=== PATIENT | male | born 1960 | race Caucasian/White ===

== ENCOUNTER → 2016-02-11 | Outpatient (CLI) | payer OTHER ==
[~2016-02-11] MED LIST: CRS/10 PO; CZR50 PO; HYDR-5688 PO; OMEG10007 PO; PRAV20TA PO; WARF3TAB PO
[2016-02-11 10:13] LABS: ALT/SGPT 39 U/L (12-78); AST/SGOT 20 U/L (15-37); BLOOD UREA NITROGEN 19 mg/dl (7-18); BUN/CREATININE RATIO 17.4 (10-20); CALCIUM 8.5 mg/dl (8.5-10.1); CARBON DIOXIDE 29 mmol/L (21-32); CHLORIDE 102 mmol/L (98-107); GLUCOSE 93 mg/dl (70-99); POTASSIUM 3.6 mmol/L (3.5-5.1); SODIUM 138 mmol/L (136-145)
[2016-02-11 10:17] LABS: ALB/GLOB RATIO 0.9 (0.9-2); ALKALINE PHOSPHATASE 80 U/L (45-117); CHOLESTEROL 276 mg/dl (0-200); CHOLESTEROL/HDL RATIO 7.5; HDL CHOLESTEROL 37 mg/dl; PROSTATE SPECIFIC ANTIGEN 0.264 ng/ml (0.000-4.000); TRIGLYCERIDES 536 mg/dl (0-150)
== END | disposition home or self-care (01) ==
LOC: C.LAB 07:23
PROVIDERS: ATTEND Internal Medicine
DX: E78.5 Hyperlipidemia, unspecified (principal); I10 Essential (primary) hypertension; Z12.5 Encounter for screening for malignant neoplasm of prostate

== ENCOUNTER → 2016-03-22 | Outpatient (CLI) | payer OTHER | END | disposition home or self-care (01) | LOC: C.RDSM 11:52 | PROVIDERS: ATTEND Physical Medicine & Rehabilitation Sports Medicine | DX: M25.561 Pain in right knee (principal) ==

== ENCOUNTER → 2016-06-16 | Outpatient (CLI) | payer OTHER ==
[~2016-06-16] MED LIST changes: -HYDR-5688 PO
[2016-06-16 12:00] LABS: BASO % 0.3 %; BASO ABS # 0.01 K/uL (0-0.2); COMPLETE YES; EOS % 3.6 %; HEMATOCRIT 42.7 % (42-52); IG% 0.3 %; LYMPH % 20.3 %; LYMPH ABS # 0.79 K/uL (1.2-3.4); MEAN CELL VOLUME 95.3 fL (80-100); MEAN CORPUSCULAR HEMOGLOBIN 31.9 pg (25-34); MEAN CORPUSCULAR HGB CONC 33.5 g/dl (32-36); MEAN PLATELET VOLUME 9.6 fL (7.4-10.4); NEUT % 66.5 %; PLATELET COUNT 161 K/uL (130-400); RED BLOOD COUNT 4.48 M/uL (4.7-6.1); WHITE BLOOD COUNT 3.89 K/uL (4.8-10.8)
[2016-06-16 12:52] LABS: ALT/SGPT 45 U/L (12-78); CHOLESTEROL 172 mg/dl (0-200)
[2016-06-16 13:29] LABS: AST/SGOT 28 U/L (15-37); HDL CHOLESTEROL 41 mg/dl; LDL CHOLESTEROL CALCULATED 82 mg/dl; TRIGLYCERIDES 247 mg/dl (0-150); VERY LOW DENSITY LIPOPROT CALC 49 mg/dl
== END | disposition home or self-care (01) ==
LOC: C.LABBFT 08:09
PROVIDERS: ATTEND Internal Medicine
DX: E78.5 Hyperlipidemia, unspecified (principal); I10 Essential (primary) hypertension

== ENCOUNTER → 2017-03-21 | Day surgery (SDC) | payer OTHER ==
[2017-03-08 12:35] VITALS: BMI 34.0
[~2017-03-21] VITALS: Ht 177.8 cm; Wt 109.1 kg
[~2017-03-21] MED LIST changes: -CZR50 PO; +LOSA100T65 PO; -OMEG10007 PO; -PRAV20TA PO; +SODIUM CHLORIDE 0.9% 500ML 500 ML IV ONE
[2017-03-21 08:03] VITALS: Ht 177.8 cm; Wt 109.1 kg
--- NOTE | 2017-03-21 08:40 | Endo History and Physical ---
History & Physical Date of Service: Mar 21, 2017. Chief Complaint: hx polyps 3 years ago Referring Physician: Dr. Spear History of Present Illness 56 yo CM who presents for colonoscopy secondary to history of colon polyps. Past Medical History Pulmonary Emboli, High Cholesterol, Hypertension, Thrombophlebitis, Other Past Surgical History Hx Cardiac Surgery: No Hx Internal Defibrillator: No Hx Pacemaker: No Hx Abdominal Surgery: No Hx of Implantable Prosthesis: No Hx Post-Op Nausea and Vomiting: No Hx Cancer Surgery: No Hx Thoracic Surgery: No Hx Orthopedic: Yes (DUPYTRENS CONTRACTURE REPAIR) Hx Urinary Tract Surgery: No Family History Polyp Social History Smoking Status: Never Smoker Hx Substance Use: No Hx Alcohol Use: Yes (OCCASIONAL) Allergies Coded Allergies: Atorvastatin (Verified Adverse Reaction, Severe, Severe myopathy after 4 days, 03/21/17) Uncoded Allergies: FRESH FRUIT (Allergy, Intermediate, ITCHING LIPS, 08/18/13) Current Medications Reported Home Medications Medications Dose Route/Sig Max Daily Dose Days Date Category Cozaar (Losartan Potassium) 100 Mg Tab 100 Mg PO HS 03/08/17 Reported Crestor (Rosuvastatin Calcium) 10 Mg Tab 10 Mg PO HS 07/14/16 Reported Coumadin (Warfarin Sodium) 3 Mg Tab 9 Mg PO HS 11/27/15 Reported Vital Signs Weight (Kilograms): 109.09 Height (Feet): 5 Height (Inches): 10 Date Time Temp Pulse Resp B/P (MAP) Pulse Ox O2 Delivery O2 Flow Rate FiO2 03/21/17 08:12 37 65 20 141/98 (112) 94 Room Air Physical Exam General Appearance: WD/WN, no apparent distress Respiratory/Chest: Auscultation: breath sounds normal Cardiovascular: Heart Auscultation: RRR Abdomen: Bowel Sounds: normal Inspection & Palpation: soft, non-distended, no tenderness, guarding & rebound Assessment and Plan Assessment: 56 yo CM who presents for colonoscopy secondary to history of colon polyps. Plan: Proceed with colonoscopy.
--- NOTE | 2017-03-21 09:07 | GI REPORT ---
Procedure Date: 03/21/2017 8:09 AM Procedure: Colonoscopy Indications: High risk colon cancer surveillance: Personal history of colonic polyps Medicines: Monitored Anesthesia Care Complications: No immediate complications. Estimated Blood Loss: Estimated blood loss: none. Procedure: Pre-Anesthesia Assessment: - Prior to the procedure, a History and Physical was performed, and patient medications and allergies were reviewed. The patient's tolerance of previous anesthesia was also reviewed. The risks and benefits of the procedure and the sedation options and risks were discussed with the patient. All questions were answered, and informed consent was obtained. Prior Anticoagulants: The patient has taken Coumadin (warfarin), last dose was 6 days prior to procedure. ASA Grade Assessment: II - A patient with mild systemic disease. After reviewing the risks and benefits, the patient was deemed in satisfactory condition to undergo the procedure. After I obtained informed consent, the scope was passed under direct vision. Throughout the procedure, the patient's blood pressure, pulse, and oxygen saturations were monitored continuously. The scope was introduced through the anus and advanced to the terminal ileum. The colonoscopy was performed without difficulty. The patient tolerated the procedure well. The quality of the bowel preparation was good. The terminal ileum, ileocecal valve, appendiceal orifice, and rectum were photographed. Findings: The perianal and digital rectal examinations were normal. Two sessile polyps were found in the rectum and ascending colon. The polyps were 4 to 6 mm in size. These polyps were removed with a hot snare. Resection and retrieval were complete. Multiple small-mouthed diverticula were found in the sigmoid colon. Non-bleeding internal hemorrhoids were found during retroflexion. The hemorrhoids were small. Impression: - Two 4 to 6 mm polyps in the rectum and in the ascending colon, removed with a hot snare. Resected and retrieved. - Diverticulosis in the sigmoid colon. - Non-bleeding internal hemorrhoids. Recommendation: - Resume previous diet. - Continue present medications. - Resume Coumadin (warfarin) at prior dose today. - Repeat colonoscopy for surveillance based on pathology results. - Return to primary care physician as previously scheduled. Francisco Oneil DO 03/21/2017 9:07:29 AM This report has been signed electronically. Note Initiated On: 03/21/2017 8:09 AM I attest to the content of the Intraoperative Record and orders documented therein, exceptions below
--- NOTE | 2017-03-21 09:10 | Discharge Instructions ---
Endoscopy Patient Instructions Date / Procedure(s) Performed Mar 21, 2017. Colonoscopy Allergy Information Coded Allergies: Atorvastatin (Verified Adverse Reaction, Severe, Severe myopathy after 4 days, 03/21/17) Uncoded Allergies: FRESH FRUIT (Allergy, Intermediate, ITCHING LIPS, 08/18/13) Discharge Date / Findings Mar 21, 2017. Colon polyp Rectal polyp Diverticulosis Internal hemorrhoids Medication Instructions Stopped Medication(s): OFF COUMADIN FOR 5 DAys. INR 1.2 yesterday OK to resume all medications today as prescribed, including Coumadin therapy. Reported Home Medications Medications Dose Route/Sig Max Daily Dose Days Date Category Cozaar (Losartan Potassium) 100 Mg Tab 100 Mg PO HS 03/08/17 Reported Crestor (Rosuvastatin Calcium) 10 Mg Tab 10 Mg PO HS 07/14/16 Reported Coumadin (Warfarin Sodium) 3 Mg Tab 9 Mg PO HS 11/27/15 Reported Provider Instructions Activity Restrictions - No exercising or heavy lifting for 24 hours. - Do not drink alcohol the day of the procedure. - Do not drive a car or operate machinery until the day after the procedure. - Do not make any important decisions or sign important papers in 24 hours after the procedure. Following Day: - Return to full activity which may include returning to work/school. Diet Start your diet with liquids and light foods (jello, soup, juice, toast). Then eat your usual diet if not nauseated. Treatment For Common After Affects For mild abdominal pain, bloating, or excessive gas: - Rest - Eat lightly - Lie on right side Follow-Up Information Follow-up with Dr. Spear as scheduled Anesthesia Information What You Should Know You have had a procedure that required some medicine to reduce anxiety and discomfort. This treatment is called moderate sedation. After receiving the treatment, you may be sleepy, but you will be able to breathe on your own. The effects of the treatment may last for several hours. Follow these instructions along with Activity/Diet recommendations noted above: * Do NOT do anything where dizziness or clumsiness would be dangerous. * Rest quietly at home today, then you can be up and about tomorrow. * Have a responsible person stay with you the rest of today. * You may have had an I.V. today. If so, you may take the dressing off later today. Recommendations Call your doctor if: * Trouble breathing * Continuous vomiting for more than 24 hours * Temperature above 101 degrees * Severe abdominal pain or bloating * Pain not relieved by pain medicine ordered * There is increased drainage or redness from any incision * A large amount of rectal bleeding greater than 2-3 tablespoons. (If you had a polyp/s removed or have hemorrhoids, a small amount of blood - from the rectum is to be expected.) * You have any unanswered questions or concerns. IN THE EVENT OF A SERIOUS EMERGENCY, GO TO THE NEAREST EMERGENCY ROOM Your discharge instructions were prepared by provider Francisco Oneil. Patient Instructions Signature Page Gui Burnett Patient (or Guardian) Signature/Date: I have read and understand the instructions given to me by my caregivers. Caregiver/RN/Doctor Signature/Date: The above-named patient and/or guardian has received patient instructions on this date. + Original Patient Signature Page (only) stays with chart. Please make copy for patient.
[2017-03-21 09:36] VITALS: BP 120/83; PULSE 69; O2SAT 96
--- NOTE | 2017-03-21 09:41 | Anesthesiology Progress Note ---
Anesthesia Post Op Note Date & Time Mar 21, 2017 at 09:41 Vital Signs Pain Intensity: 0 Vital Signs Past 12 Hours Date Time Temp Pulse Resp B/P (MAP) Pulse Ox O2 Delivery O2 Flow Rate FiO2 03/21/17 09:36 69 20 120/83 (95) 96 Room Air 03/21/17 09:17 69 20 120/81 (94) 96 Room Air 03/21/17 09:07 36.8 68 20 112/70 (84) 96 Room Air 03/21/17 08:12 37 65 20 141/98 (112) 94 Room Air Notes Mental Status: alert / awake / arousable, participated in evaluation Pt Amnestic to Procedure: Yes Nausea / Vomiting: adequately controlled Pain: adequately controlled Airway Patency, RR, SpO2: stable & adequate BP & HR: stable & adequate Hydration State: stable & adequate Anesthetic Complications: no major complications apparent
== END | disposition home or self-care (01) ==
LOC: C.GI 07:22
PROVIDERS: ATTEND Internal Medicine
DX: Z12.11 Encounter for screening for malignant neoplasm of colon (principal); Z86.010 Personal history of colon polyps; D12.2 Benign neoplasm of ascending colon; K62.1 Rectal polyp; K57.30 Diverticulosis of large intestine without perforation or abscess without bleeding; K64.8 Other hemorrhoids; G47.33 Obstructive sleep apnea (adult) (pediatric); M19.90 Unspecified osteoarthritis, unspecified site; E78.00 Pure hypercholesterolemia, unspecified; E78.5 Hyperlipidemia, unspecified; I10 Essential (primary) hypertension; Z86.72 Personal history of thrombophlebitis; Z86.711 Personal history of pulmonary embolism; Z88.8 Allergy status to other drugs, medicaments and biological substances; Z79.01 Long term (current) use of anticoagulants

== ENCOUNTER → 2017-04-11 | Outpatient (CLI) | payer OTHER ==
[~2017-04-11] MED LIST changes: -SODIUM CHLORIDE 0.9% 500ML 500 ML IV ONE
[2017-04-11 12:31] LABS: EOS % 3.1 %; EOS ABS # 0.09 K/uL (0-0.5); HEMATOCRIT 40.6 % (42-52); HEMOGLOBIN 14.3 g/dL (14.0-18.0); IG# 0.01 K/uL (0.00-0.02); LYMPH % 23.7 %; MEAN CELL VOLUME 91.4 fL (80-100); MEAN CORPUSCULAR HEMOGLOBIN 32.2 pg (25-34); MEAN CORPUSCULAR HGB CONC 35.2 g/dl (32-36); MEAN PLATELET VOLUME 8.9 fL (7.4-10.4); MONO % 10.5 %; MONO ABS # 0.31 K/uL (0.11-0.59); NEUT % 62.4 %; NEUT ABS # 1.84 K/uL (1.4-6.5); PLATELET COUNT 142 K/uL (130-400); RED CELL DISTRIBUTION WIDTH CV 14.4 % (11.5-14.5); RED CELL DISTRIBUTION WIDTH SD 48.5 fL (36.4-46.3); WHITE BLOOD COUNT 2.95 K/uL (4.8-10.8)
[2017-04-11 12:49] LABS: ALBUMIN 3.7 gm/dl (3.4-5.0); ALT/SGPT 40 U/L (12-78); BLOOD UREA NITROGEN 13 mg/dl (7-18); CALCIUM 8.6 mg/dl (8.5-10.1); CARBON DIOXIDE 28 mmol/L (21-32); CHOLESTEROL 192 mg/dl (0-200); CREATININE 0.99 mg/dl (0.60-1.40); GLUCOSE 101 mg/dl (70-99); POTASSIUM 3.9 mmol/L (3.5-5.1); SODIUM 136 mmol/L (136-145)
[2017-04-11 12:53] LABS: ALKALINE PHOSPHATASE 76 U/L (45-117); AST/SGOT 20 U/L (15-37); TOTAL PROTEIN 7.2 gm/dl (6.4-8.2)
== END | disposition home or self-care (01) ==
LOC: C.LABBFT 10:44
PROVIDERS: ATTEND Internal Medicine
DX: I10 Essential (primary) hypertension (principal); E78.5 Hyperlipidemia, unspecified; Z12.5 Encounter for screening for malignant neoplasm of prostate

== ENCOUNTER 2020-06-13 02:48 | Observation (INO) ==
[2020-06-13] MEDS ORDERED: SODIUM CHLORIDE 0.9% 1000ML 1,000 ML IV ONE (03:08)
[2020-06-13] MEDS ORDERED: OPTIRAY 350 500ml IV ONE (03:25)
--- NOTE | 2020-06-13 03:29 | Emergency Department Note ---
History of Present Illness General Chief complaint: Altered Mental Status Stated complaint: ALTERED MENTAL STATUS/LEG PAIN & SWELLING Time Seen by Provider: 06/13/20 02:52 History of Present Illness Maximum Pain Intensity: 7 This 60-year-old presents to the ER complaining of increased confusion that started at 130 this morning Location: Generalized Quality: Confused and not feeling right Severity: Moderate Duration: Tonight Timin:30 AM Context: Patient woke up confused and thought that he was dying and something was wrong and called the EMS Modifying factors: better with nothing; worse with nothing Patient states he felt fine yesterday. He had a couple beers with his friends as they were celebrating their 60th birthday. Patient woke up and felt confused and not right and feels like that he is dying. Patient states he had knee surgery on the right knee and is slightly more painful and swollen for him. He has received the Covid vaccine. 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 He is on Eliquis for recurrent DVTs. He has not missed a dose. Patient denies chest pain, dyspnea, localized weakness, fever, chills, flulike illness. Home Medications Medication Instructions Recorded Confirmed Type hydrochlorothiazide 25 mg tablet 25 mg PO DAILY #90 tab 03/10/20 06/13/20 Rx losartan 100 mg tablet 100 mg PO DAILY #90 tab 03/29/20 06/13/20 Rx Eliquis 2.5 mg PO BID 04/13/20 06/13/20 History amlodipine [Norvasc] 5 mg PO DAILY 04/13/20 06/13/20 History famotidine [Pepcid] 20 mg PO DAILY PRN 04/13/20 06/13/20 History docusate sodium 100 mg PO BID #30 cap 04/14/20 06/13/20 Rx tramadol 50 - 100 mg PO Q4H PRN #20 tab 04/14/20 06/13/20 Rx rosuvastatin 10 mg tablet 10 mg PO HS #90 tab 05/05/20 06/13/20 Rx hydrocodone-acetaminophen 1 tab PO Q6H PRN 05/27/20 06/13/20 History Allergies Allergy/AdvReac Type Severity Reaction Status Date / Time atorvastatin AdvReac Intermediate Severe Verified 06/13/20 02:57 myopathy after 4 days FRESH FRUIT Allergy Intermediate ITCHING Uncoded 06/13/20 02:57 LIPS Past Med/Surg History Medical History Deep vein thrombosis (DVT) of lower extremity FIRST DX AT AGE 26>"HAS HAD NUMEROUS SUPERFICIAL CLOTS" (REASON FOR ELIQUIS) Environmental and seasonal allergies Gastroesophageal reflux disease History of colon polyps "BENIGN" History of COVID-19 presumed positive s/p Right TKA April 2020. patient discharged on 04/14/20, tested positive 04/15/20 for covid-19 with severe cough, fever and fatigue. patient experienced same symptoms starting on 04/17/20. patient unable to get tested as he had no way to drive since was severely ill. no current symptoms for patient nor currenty. Hyperlipidemia Hypertension Insomnia Leukopenia Obstructive apnea "BORDERLINE" DOES NOT USE DEVICE Osteoarthritis of knee Surgical History Family history of reaction to anesthesia MOTHER-SEVERE PROLONGED CONFUSION H/O hand surgery LEFT History of colonoscopy History of esophagogastroduodenoscopy (EGD) History of total knee replacement Right [place] teeth removed Family History Father Heart disease Stroke Coronary heart disease Mother Stroke Grandfather (Maternal) Family history of diabetes mellitus Denies family history of Ovarian cancer Prostate cancer Myocardial infarction Breast cancer Colorectal cancer Lung disease Social History Smoking Status: Never smoker Second Hand Exposure: No; Hx Alcohol Use: Yes Alcohol type: beer Hx Substance Use: No Preferred Language: Frisian Communication Ability: Effective Visual Impairment: No Limitations Hearing Ability: Normal [employer] Specialist Required: No Beliefs That Will Affect Care: None marital status: Current Living Situation: Spouse current occupational status: employed current occupation: [employer] Feels Safe at Home: Yes Childhood Exposure to Second-Hand Smoke: No caffeine: Yes Dental Care, Regularly: No Physical Activity Frequency: Daily Seatbelt Use: always Sunscreen Use: Yes Assistive Devices: Crutches Review of Systems A total of 10 systems reviewed and were otherwise negative Physical Exam Vital Signs Vital Signs - 24 hr 06/13/20 02:56 Temperature 36.9 C Temperature Source Oral Pulse Rate 92 H Pulse Rhythm Regular Pulse Strength Normal Respiratory Rate 20 Respiratory Depth Normal Blood Pressure 175/97 H Blood Pressure Mean 123 Blood Pressure Position Sitting Pulse Oximetry 96 Oxygen Delivery Method Room Air Sepsis Recent Fever Within 48 Hours No Sepsis New/Unexplained Change in Mental Status Yes Sepsis Action Taken by Nursing No Action Required VITALS: Vitals are noted on the nurse's note and reviewed by myself. Vital signs hypertensive. GENERAL: Pleasant male repeating himself who appears confused SKIN: The skin was without rashes, bruising. There is no tenting of the skin. Capillary reflex less than 2 seconds. HEAD: Normocephalic atraumatic. EARS: External auditory canals clear, tympanic membranes pearly aguirre without erythema or effusion bilaterally. EYES: Pupils equal round and reactive to light and accommodation. Conjunctivae without injection, sclerae without icterus. Extraocular movements intact. NOSE: Patent, turbinates without inflammation or discharge. No sinus tenderness. MOUTH: Mucous membranes moist. Pharynx without erythema or exudate. Uvula midline. Airway patent. Tongue does not deviate. NECK: Supple without nuchal rigidity. No lymphadenopathy. No thyromegaly. Cervical spine is nontender. No JVD. HEART: Regular rate and rhythm LUNGS: Clear to auscultation bilaterally without wheezes, rales or rhonchi. No retractions or accessory muscle use. ABDOMEN: Positive bowel sounds x 4. Normal tympanic percussion. Soft, nontende r, without masses or organomegaly. Muhammad sign negative. No guarding or rebound tenderness. No CVA tenderness MUSCULOSKELETAL: No muscle atrophy noted. Right knee edematous and warm to touch. Patient had a knee replacement 2 months ago. Increased pain with minimal range of motion. NEURO: Patient was alert and oriented to person place and time. Normal sensation to light and sharp touch. Cranial nerves II through XII grossly intact. No prior drift. Cerebellar exam intact. No focal neurological deficits. Course Administered Medications Discontinued Medications Sodium Chloride (Nss 1000ml) 1,000 mls @ 999 mls/hr IV .Q1H1M ONE Stop: 06/13/20 04:08 Last Admin: 06/13/20 03:34 Dose: 999 mls/hr Documented by: [id number] Ioversol (Optiray 350 500ml) 122 ml IV ONCE ONE Stop: 06/13/20 03:26 Last Admin: 06/13/20 03:25 Dose: 122 ml Documented by: [id number] Medical Decision Making Medical Records Attestation: I reviewed the patient's medical records. Home Medications Current Medication List: was personally reviewed by me Laboratory Data Attestation: I reviewed the patient's lab results. Result diagrams: 06/13/20 Unknown 06/13/20 Unknown Lab Results 06/13/20 06/13/20 06/13/20 Range/Units 03:28 03:28 03:39 WBC (4.8-10.8) K/uL RBC (4.7-6.1) M/uL Hgb (14.0-18.0) g/dL Hct (42-52) % MCV (80-100) fL MCH (25-34) pg MCHC (32-36) g/dL RDW Std Deviation (36.4-46.3) fL RDW Coeff of Lacey (11.5-14.5) % Plt Count (130-400) K/uL MPV (7.4-10.4) fL Immature Gran % (Auto) % Neut % (Auto) % Lymph % (Auto) % Mckenzie % (Auto) % Eos % (Auto) % Baso % (Auto) % Neut # (Auto) (1.4-6.5) K/uL Lymph # (Auto) (1.2-3.4) K/uL Mckenzie # (Auto) (0.11-0.59) K/uL Eos # (Auto) (0-0.5) K/uL Baso # (Auto) (0-0.2) K/uL Immature Gran # (Auto) (0.00-0.02) K/uL ESR (0-20) mm/hr PT (9.0-12.0) Seconds INR (0.9-1.1) APTT (21.0-31.0) Seconds PTT Ratio Sodium (136-145) mmol/L Potassium (3.5-5.1) mmol/L Chloride (98-107) mmol/L Carbon Dioxide (21-32) mmol/L Anion Gap (3-11) BUN (7-18) mg/dl Creatinine (0.6-1.4) mg/dl Est Cr Clr Drug Dosing ml/min Est GFR ( Amer) Est GFR (Non-Af Amer) BUN/Creatinine Ratio (10-20) Glucose (70-99) mg/dl POC Glucose (70-99) mg/dl Lactate (0.4-2.0) mmol/L Calcium (8.5-10.1) mg/dl Magnesium (1.8-2.4) mg/dl Total Bilirubin (0.2-1) mg/dl AST (15-37) U/L ALT (12-78) U/L Alkaline Phosphatase (45-117) U/L Ammonia (11-32) umol/L Troponin I (0-0.045) ng/ml C-Reactive Protein (0-0.29) mg/dl Total Protein (6.4-8.2) gm/dl Albumin (3.4-5.0) gm/dl Globulin (2.5-4.0) gm/dl Albumin/Globulin Ratio (0.9-2) Ethyl Alcohol mg/dL < 3.0 (0-3) mg/dl COVID-19 Eval Order CovFluRsv at [facility] SARS-CoV-2 (PCR) NEGATIVE (Negative) Influenza Type A (PCR) Negative (Neg) Influenza Type B (PCR) Negative (Neg) RSV (RT-PCR) Negative (Neg) 06/13/20 06/13/20 06/13/20 Range/Units 03:39 03:43 Unknown WBC 4.26 L (4.8-10.8) K/uL RBC 4.36 L (4.7-6.1) M/uL Hgb 13.2 L (14.0-18.0) g/dL Hct 39.9 L (42-52) % MCV 91.5 (80-100) fL MCH 30.3 (25-34) pg MCHC 33.1 (32-36) g/dL RDW Std Deviation 50.0 H (36.4-46.3) fL RDW Coeff of Lacey 14.8 H (11.5-14.5) % Plt Count 204 (130-400) K/uL MPV 8.6 (7.4-10.4) fL Immature Gran % (Auto) 0.0 % Neut % (Auto) 71.9 % Lymph % (Auto) 20.2 % Mckenzie % (Auto) 6.3 % Eos % (Auto) 1.6 % Baso % (Auto) 0.0 % Neut # (Auto) 3.06 (1.4-6.5) K/uL Lymph # (Auto) 0.86 L (1.2-3.4) K/uL Mckenzie # (Auto) 0.27 (0.11-0.59) K/uL Eos # (Auto) 0.07 (0-0.5) K/uL Baso # (Auto) 0.00 (0-0.2) K/uL Immature Gran # (Auto) 0.00 (0.00-0.02) K/uL ESR (0-20) mm/hr PT (9.0-12.0) Seconds INR (0.9-1.1) APTT (21.0-31.0) Seconds PTT Ratio Sodium (136-145) mmol/L Potassium (3.5-5.1) mmol/L Chloride (98-107) mmol/L Carbon Dioxide (21-32) mmol/L Anion Gap (3-11) BUN (7-18) mg/dl Creatinine (0.6-1.4) mg/dl Est Cr Clr Drug Dosing ml/min Est GFR ( Amer) Est GFR (Non-Af Amer) BUN/Creatinine Ratio (10-20) Glucose (70-99) mg/dl POC Glucose 139 H (70-99) mg/dl Lactate (0.4-2.0) mmol/L Calcium (8.5-10.1) mg/dl Magnesium (1.8-2.4) mg/dl Total Bilirubin (0.2-1) mg/dl AST (15-37) U/L ALT (12-78) U/L Alkaline Phosphatase (45-117) U/L Ammonia < 10.0 L (11-32) umol/L Troponin I (0-0.045) ng/ml C-Reactive Protein (0-0.29) mg/dl Total Protein (6.4-8.2) gm/dl Albumin (3.4-5.0) gm/dl Globulin (2.5-4.0) gm/dl Albumin/Globulin Ratio (0.9-2) Ethyl Alcohol mg/dL (0-3) mg/dl COVID-19 Eval Order SARS-CoV-2 (PCR) (Negative) Influenza Type A (PCR) (Neg) Influenza Type B (PCR) (Neg) RSV (RT-PCR) (Neg) 06/13/20 06/13/20 06/13/20 Range/Units Unknown Unknown Unknown WBC (4.8-10.8) K/uL RBC (4.7-6.1) M/uL Hgb (14.0-18.0) g/dL Hct (42-52) % MCV (80-100) fL MCH (25-34) pg MCHC (32-36) g/dL RDW Std Deviation (36.4-46.3) fL RDW Coeff of Lacey (11.5-14.5) % Plt Count (130-400) K/uL MPV (7.4-10.4) fL Immature Gran % (Auto) % Neut % (Auto) % Lymph % (Auto) % Mckenzie % (Auto) % Eos % (Auto) % Baso % (Auto) % Neut # (Auto) (1.4-6.5) K/uL Lymph # (Auto) (1.2-3.4) K/uL Mckenzie # (Auto) (0.11-0.59) K/uL Eos # (Auto) (0-0.5) K/uL Baso # (Auto) (0-0.2) K/uL Immature Gran # (Auto) (0.00-0.02) K/uL ESR (0-20) mm/hr PT 10.3 (9.0-12.0) Seconds INR 1.0 (0.9-1.1) APTT 25.4 (21.0-31.0) Seconds PTT Ratio 1.0 Sodium 139 (136-145) mmol/L Potassium 3.9 (3.5-5.1) mmol/L Chloride 107 (98-107) mmol/L Carbon Dioxide 28 (21-32) mmol/L Anion Gap 4.0 (3-11) BUN 15 (7-18) mg/dl Creatinine 0.99 (0.6-1.4) mg/dl Est Cr Clr Drug Dosing 98.8 ml/min Est GFR ( Amer) 95.5 Est GFR (Non-Af Amer) 82.4 BUN/Creatinine Ratio 15.6 (10-20) Glucose 130 H (70-99) mg/dl POC Glucose (70-99) mg/dl Lactate 2.0 (0.4-2.0) mmol/L Calcium 9.1 (8.5-10.1) mg/dl Magnesium 2.2 (1.8-2.4) mg/dl Total Bilirubin 0.4 (0.2-1) mg/dl AST 21 (15-37) U/L ALT 32 (12-78) U/L Alkaline Phosphatase 83 (45-117) U/L Ammonia (11-32) umol/L Troponin I < 0.015 (0-0.045) ng/ml C-Reactive Protein < 0.29 (0-0.29) mg/dl Total Protein 7.6 (6.4-8.2) gm/dl Albumin 3.7 (3.4-5.0) gm/dl Globulin 3.9 (2.5-4.0) gm/dl Albumin/Globulin Ratio 0.9 (0.9-2) Ethyl Alcohol mg/dL (0-3) mg/dl COVID-19 Eval Order SARS-CoV-2 (PCR) (Negative) Influenza Type A (PCR) (Neg) Influenza Type B (PCR) (Neg) RSV (RT-PCR) (Neg) 06/13/20 Range/Units Unknown WBC (4.8-10.8) K/uL RBC (4.7-6.1) M/uL Hgb (14.0-18.0) g/dL Hct (42-52) % MCV (80-100) fL MCH (25-34) pg MCHC (32-36) g/dL RDW Std Deviation (36.4-46.3) fL RDW Coeff of Lacey (11.5-14.5) % Plt Count (130-400) K/uL MPV (7.4-10.4) fL Immature Gran % (Auto) % Neut % (Auto) % Lymph % (Auto) % Mckenzie % (Auto) % Eos % (Auto) % Baso % (Auto) % Neut # (Auto) (1.4-6.5) K/uL Lymph # (Auto) (1.2-3.4) K/uL Mckenzie # (Auto) (0.11-0.59) K/uL Eos # (Auto) (0-0.5) K/uL Baso # (Auto) (0-0.2) K/uL Immature Gran # (Auto) (0.00-0.02) K/uL ESR 27 H (0-20) mm/hr PT (9.0-12.0) Seconds INR (0.9-1.1) APTT (21.0-31.0) Seconds PTT Ratio Sodium (136-145) mmol/L Potassium (3.5-5.1) mmol/L Chloride (98-107) mmol/L Carbon Dioxide (21-32) mmol/L Anion Gap (3-11) BUN (7-18) mg/dl Creatinine (0.6-1.4) mg/dl Est Cr Clr Drug Dosing ml/min Est GFR ( Amer) Est GFR (Non-Af Amer) BUN/Creatinine Ratio (10-20) Glucose (70-99) mg/dl POC Glucose (70-99) mg/dl Lactate (0.4-2.0) mmol/L Calcium (8.5-10.1) mg/dl Magnesium (1.8-2.4) mg/dl Total Bilirubin (0.2-1) mg/dl AST (15-37) U/L ALT (12-78) U/L Alkaline Phosphatase (45-117) U/L Ammonia (11-32) umol/L Troponin I (0-0.045) ng/ml C-Reactive Protein (0-0.29) mg/dl Total Protein (6.4-8.2) gm/dl Albumin (3.4-5.0) gm/dl Globulin (2.5-4.0) gm/dl Albumin/Globulin Ratio (0.9-2) Ethyl Alcohol mg/dL (0-3) mg/dl COVID-19 Eval Order SARS-CoV-2 (PCR) (Negative) Influenza Type A (PCR) (Neg) Influenza Type B (PCR) (Neg) RSV (RT-PCR) (Neg) Imaging Data Attestation: I personally reviewed and interpreted this imaging study as follows: MDM Narrative Prior records/ancillary studies reviewed and summarized above. Nursing notes reviewed. Additional history obtained from . The patient's history was concerning for increased confusion. Differential diagnosis: Etiologies such as metabolic, infection, hypo/hyperglycemia, electrolyte abnormalities, cardiac sources, intracerebral event, toxicologic, neurologic, as well as others were entertained. Physical examination: As above. ER treatment provided: IV Lock An order was placed for continuous cardiac monitoring. The monitor shows a rate of 60-1 10 with a sinus rhythm. IV fluids On reassessment the patient felt better. Diagnostics interpretation by me: ECG: Ordered for altered mental status EKG: Normal sinus, first-degree AV block, no acute ST-T wave changes. Impression normal sinus rhythm with first-degree AV block interpreted by myself I think arrhythmia is unlikely. EKG shows normal sinus rhythm with no interval abnormalities such as QT prolongation or WPW. There are no findings to suggest Brugada syndrome. Cardiac monitoring in the emergency department reveals no tachycardic or bradycardic dysrhythmia. Hypertrophic cardiomyopathy was considered but there are no clear historical elements pointing toward this. EKG is not suggestive. The QRS voltage is not extremely large and there are no suggestive Q waves. The labs revealed negative troponin. Negative ammonia. Stable leukopenia per chart review. Blood cultures pending Negative alcohol, negative Covid Imaging studies: CT HEAD: No ICH, mass effect or edema. No evidence of acute cortical stroke. Visualized sinuses and mastoid air cells are clear. Radiologist: Mark Dangelo MD Preliminary Findings Only See Final Report For Complete Findings CTA HEAD: Intracranial vascular structures including the anterior, middle, and posterior cerebral arteries and basilar artery enhance normally. Dural sinuses enhance normally. There is no enhancing mass. Impression: No vascular occlusion CTA NECK: Cervical vascular structures including common carotid arteries, internal carotid arteries and vertebral arteries enhance normally. There is no aneurysm dissection or occlusion. There is mild atherosclerotic change within the proximal internal carotid arteries without stenosis. Radiologist: Mark Dangelo MD Study ready at 04:03 and initial results transmitted at 04:11 Communications: Clear Time Type Notes Call Doctor Stroke Chest x-ray with no acute consolidation, pneumothorax or free air per my i nterpretation Knee x-ray with no acute fracture, dislocation or effusion per my interpretation Consultation: A consultation was placed with the hospitalist, Dr. Vazquez. The case was discussed and diagnostics were reviewed. The patient was evaluated in the ER for further treatment. NIH is 0 Exam and history seem consistent with altered mental status with unclear etiology. Medicine was consulted. He will be evaluated for admission. Negative CTAs. By the evaluation outlined above emergent etiologies such as electrolyte abnormalities, cardiac sources, abnormalities blood glucose, as well as others were deemed relatively unlikely. The pt informed about the findings as listed above. All questions were answered and pleased with the treatment. The chart was completed utilizing [employer] Speech voice recognition software. Grammatical errors, random word insertions, pronoun errors, and incomplete sentences are an occassional consequence of this system due to software li mitations, ambient noise, and hardware issues. Any formal questions or concerns about the content, text, or information contained within the body of this dictation should be directly addressed to the physician business banking sales assistant for clarification. Impression & Plan Altered mental status Discharge Plan Visit Data Chief Complaint: Altered Mental Status Stated Complaint: ALTERED MENTAL STATUS/LEG PAIN & SWELLING ED Provider: Marta Dozier ED Midlevel Provider: Zoe Napier Discharge Problem: Altered mental status Patient Disposition: Admitted As Inpatient Condition: Good Forms Stand Alone Forms: MySQL Prescriptions Prescriptions: No Action hydrochlorothiazide 25 mg tablet 25 mg PO DAILY Qty: 90 RF: 3 losartan 100 mg tablet 100 mg PO DAILY Qty: 90 RF: 1 rosuvastatin 10 mg tablet 10 mg PO HS Qty: 90 RF: 3 amlodipine [Norvasc] 5 mg tablet 5 mg PO DAILY RF: 0 Eliquis 2.5 mg tablet 2.5 mg PO BID RF: 0 famotidine [Pepcid] 20 mg Tablet 20 mg PO DAILY PRN (Reason: (Drug) Ingestion) RF: 0 tramadol 50 mg Tablet 50 - 100 mg PO Q4H PRN (Reason: pain) Qty: 20 RF: 0 docusate sodium 100 mg Capsule 100 mg PO BID Qty: 30 RF: 0 hydrocodone-acetaminophen 5-325 mg Tablet 1 tab PO Q6H PRN (Reason: Pain) RF: 0 Referrals Referrals: Rogerio Spear MD [Primary Care Provider] - Discharge Problem: Altered mental status Qualifiers: Altered mental status type: unspecified Qualified Code(s): R41.82 - Altered mental status, unspecified
[2020-06-13 03:34] LABS: Eosinophils # (auto) 0.07 K/uL (0-0.5); Eosinophils % (auto) 1.6 %; Hematocrit (blood only) 39.9 % (42-52); Hemoglobin 13.2 g/dL (14.0-18.0); Lymphocytes # (auto) 0.86 K/uL (1.2-3.4); Lymphocytes % (auto) 20.2 %; Mean Corpuscular Hemoglobin 30.3 pg (25-34); Mean Corpuscular Hgb Conc 33.1 g/dL (32-36); Mean Corpuscular Volume 91.5 fL (80-100); Mean Platelet Volume 8.6 fL (7.4-10.4); Monocytes # (auto) 0.27 K/uL (0.11-0.59); Monocytes % (auto) 6.3 %; Neutrophils # (auto) 3.06 K/uL (1.4-6.5); Neutrophils % (auto) 71.9 %; Platelet Count 204 K/uL (130-400); RDW Coefficient of Variation 14.8 % (11.5-14.5); Red Blood Count 4.36 M/uL (4.7-6.1); White Blood Count 4.26 K/uL (4.8-10.8)
[2020-06-13 03:50] LABS: Partial Thromboplastin Time 25.4 Seconds (21.0-31.0); Prothrombin Time 10.3 Seconds (9.0-12.0)
[2020-06-13 03:56] LABS: Alanine Aminotransferase 32 U/L (12-78); Albumin Level 3.7 gm/dl (3.4-5.0); BUN Creatinine Ratio 15.6 (10-20); Blood Urea Nitrogen 15 mg/dl (7-18); Calcium 9.1 mg/dl (8.5-10.1); Carbon Dioxide 28 mmol/L (21-32); Chloride 107 mmol/L (98-107); Creatinine Clr Calc Pharmacy 98.8 ml/min; Est GFR (African American) 95.5; Est GFR (Non-African American) 82.4; Glucose 130 mg/dl (70-99); Sodium 139 mmol/L (136-145)
[2020-06-13 03:59] LABS: Albumin Globulin Ratio 0.9 (0.9-2); Alkaline Phosphatase 83 U/L (45-117); Bilirubin,Total 0.4 mg/dl (0.2-1); C Reactive Protein < 0.29 mg/dl (0-0.29); Globulin 3.9 gm/dl (2.5-4.0); Total Protein 7.6 gm/dl (6.4-8.2); Troponin I < 0.015 ng/ml (0-0.045)
[2020-06-13 04:06] LABS: Potassium 3.9 mmol/L (3.5-5.1)
[2020-06-13 04:09] LABS: Aspartate Aminotransferase 21 U/L (15-37); Magnesium 2.2 mg/dl (1.8-2.4)
[2020-06-13 04:15] LABS: Influenza A virus by PCR Negative (Neg); Influenza B virus by PCR Negative (Neg); RSV by PCR Negative (Neg); SARS CoV2 RNA(COVID-19) InHosp NEGATIVE (Negative)
[2020-06-13 05:12] LABS: Appearance Urine Clear (Clear); Bilirubin Urine Negative (Negative); Blood Urine Negative (Negative); Color Urine Yellow; Glucose Urine UA Negative (Negative); Ketones Urine Negative (Negative); Leukocyte Esterase Urine Negative (Negative); Nitrite Urine Negative (Negative); Protein Urine Negative (Negative); Specific Gravity Urine > 1.045 (1.000-1.030); Urobilinogen Urine Negative (Negative)
[2020-06-13 05:36] LABS: Amphetamines+Metham, Urine Neg (Neg); Barbiturates, Urine Neg (Neg); Benzodiazepine, Urine Neg (Neg); Cocaine, Urine Neg (Neg); MDMA (Ecstacy), Urine Neg (Neg); Methadone, Urine Neg (Neg); Opiate, Urine Pos (Neg); Phencyclidine, Urine Neg (Neg)
--- NOTE | 2020-06-13 05:37 | History & Physical Report ---
Date of Service June 13, 2020 Assessment & Plan (1) Altered mental status: 60yo C male presenting with acute onset of altered sensorium, confusion and feeling "woozy" and "floaty". Etiology unclear at this time - differential broad to include encephalitis, infection, Lyme, medication effects, arrhythmia, stroke, TIA or seizure. Question of medication effects with EtOH +Hydrocodone - however, patient states that he has taken his hydrocodone after drinking before. Do now strongly suspect infection of right knee replacement although should maintain suspicion for this if fever or clinical signs of infection occur. -Observation with telemetry monitoring -Check VBG, TSH, B12, Procalcitonin, PO4, UTox -Check Lyme -Neuro checks -Consider MRI brain -Fall and aspiration precautions Present on Admission?: Yes (2) Hypertension: Blood pressure slightly elevated. -Continue Amlodipine 5mg po daily -Continue HCTZ -Conitnue Losartan -Continue to monitor Present on Admission?: Yes (3) Hyperlipidemia: Chronic -Continue Crestor Present on Admission?: Yes (4) Gastroesophageal reflux disease: Chronic. Well controlled -Continue Pepcid Present on Admission?: Yes (5) Deep vein thrombosis (DVT) of lower extremity: History of recent saphenous vein clot. Patient has had clotting in the past -Continue Eliquis 2.5mg po BID Present on Admission?: Yes (6) History of total knee replacement: Patient states that he has ongoing pain in his right knee. He feels that progress is coming along very slowly. He has been taking Hydrocodone/Acetaminophen as prescribed and participating in rehab to the best of his ability but is unhappy with his progress and level of pain he is still experiencing. He states that the right knee feels warm at baseline and notes no changes in pain or function. X-rays appear normal - awaiting final read -Continue Hydrocodone/Acetaminophen q 6 hours PRN F/E/N - LR at 125mL/hr x 2 liters, check PO4, replete electrolytes as needed, Heart healthy diet as tolerated with aspiration precautions Ppx - Continue Eliquis 2.5mg po BID. Continue Pepcid daily Code- Full per discussion with patient. History of Present Illness Chief Complaint: altered sensorium, confusion Primary Care Provider: Ryne Spear MD Gui Burnett is a 60yo C male with history of HTN, HLP, GERD presenting with altered sensorium. Patient was in his usual state of health today. He went out with friends for his 60th birthday - had 5-6 beers over the course of the evening as well as some chicken wings. He came home and took his PM medications to include one tab of hydrocodone/acetaminophen, Eliquis and Crestor. He went to bed and woke up at 0130 feeling odd. He reports feeling "woozy" and "floaty" like "everything is a dream". He felt a warm almaguer start at his feet and move up his body and his legs and arms felt weak and he maybe had some slight slurring of his speech. He took his vital signs at home around 0130 and reports that they were all within normal range. He tried to go back to sleep to see if the feelings would pass and woke up again 15 minutes later still with the same sens ations. He states that the sensations come in waves. He sometimes thinks he is going to pass out and at other times thinks he is going to . He had some nausea as well as dry heaving and occasional palpitations. Patient denies fever, chills, LOUISE, visual disturbance, neck pain or stiffness, hearing loss or tinnitus. Patient denies chest pain, cough, SOB, abdominal pain, vomiting or diarrhea, constipation Patient denies dysuria, hematuria, joint pain, rashes No additional complaints at this time No new medications or dosage changes - patient reports taking Hydrocodone 1 tab every 6 hours for pain. He has been taking this medication since his knee replacement on 06/03 No recent travel He does have a history of Lyme disease but reports no recent tick bites. He has seen a few ticks in his bed presumably from the dog Allergies Allergy/AdvReac Type Severity Reaction Status Date / Time atorvastatin AdvReac Intermediate Severe Verified 06/13/20 02:57 myopathy after 4 days FRESH FRUIT Allergy Intermediate ITCHING Uncoded 06/13/20 02:57 LIPS Home Medications Medication Instructions Recorded Confirmed Type hydrochlorothiazide 25 mg tablet 25 mg PO DAILY #90 tab 03/10/20 06/13/20 Rx losartan 100 mg tablet 100 mg PO DAILY #90 tab 03/29/20 06/13/20 Rx Eliquis 2.5 mg PO BID 04/13/20 06/13/20 History amlodipine [Norvasc] 5 mg PO DAILY 04/13/20 06/13/20 History famotidine [Pepcid] 20 mg PO DAILY PRN 04/13/20 06/13/20 History docusate sodium 100 mg PO BID #30 cap 04/14/20 06/13/20 Rx tramadol 50 - 100 mg PO Q4H PRN #20 tab 04/14/20 06/13/20 Rx rosuvastatin 10 mg tablet 10 mg PO HS #90 tab 05/05/20 06/13/20 Rx hydrocodone-acetaminophen 1 tab PO Q6H PRN 05/27/20 06/13/20 History Past Med/Surg History Medical History Deep vein thrombosis (DVT) of lower extremity FIRST DX AT AGE 26>"HAS HAD NUMEROUS SUPERFICIAL CLOTS" (REASON FOR ELIQUIS) Environmental and seasonal allergies Gastroesophageal reflux disease History of colon polyps "BENIGN" History of COVID-19 presumed positive s/p Right TKA April 2020. patient discharged on 04/14/20, tested positive 04/15/20 for covid-19 with severe cough, fever and fatigue. patient experienced same symptoms starting on 04/17/20. patient unable to get tested as he had no way to drive since was severely ill. no current symptoms for patient nor currenty. Hyperlipidemia Hypertension Insomnia Leukopenia Obstructive apnea "BORDERLINE" DOES NOT USE DEVICE Osteoarthritis of knee Surgical History Family history of reaction to anesthesia MOTHER-SEVERE PROLONGED CONFUSION H/O hand surgery LEFT History of colonoscopy History of esophagogastroduodenoscopy (EGD) History of total knee replacement Right [place] teeth removed Family History Father Heart disease Stroke Coronary heart disease Mother Stroke Grandfather (Maternal) Family history of diabetes mellitus Denies family history of Ovarian cancer Prostate cancer Myocardial infarction Breast cancer Colorectal cancer Lung disease Social History Smoking Status: Never smoker Second Hand Exposure: No; Hx Alcohol Use: Yes Alcohol type: beer Hx Substance Use: No Preferred Language: Kiswahili Communication Ability: Effective Visual Impairment: No Limitations Hearing Ability: Normal Reproductive Endocrinologist Required: No Beliefs That Will Affect Care: None marital status: Current Living Situation: Spouse current occupational status: employed current occupation: [employer] Feels Safe at Home: Yes Childhood Exposure to Second-Hand Smoke: No caffeine: Yes Dental Care, Regularly: No Physical Activity Frequency: Daily Seatbelt Use: always Sunscreen Use: Yes Assistive Devices: Crutches Review of Systems Review of Systems: All systems reviewed & are unremarkable except as noted in HPI & below Physical Exam Physical Exam: General: patient resting comfortably, is distressed about his current situation, non-toxic in appearance, AA&O x 4, following commands Skin: warm, dry, intact, small cristobal on medial portion of right leg, no ble eding/cellulitis/evidence of infection, right knee with well healed wound, no bleeding/drainage/erythema or dehiscence HEENT: NC/AT, PERRL, EOMI with faint horizontal nystagmus, anicteric sclera, conjunctiva without injection, external ear normal to inspection and nontender, nares patent, dry mucus membranes, dentition intact, no oropharyngeal lesions, neck supple, trachea midline, no LAD, no thyromegaly, no JVD Heart: +S1/S2, regular, no m/r/g, no carotid bruits Lungs: equal air entry bilaterally, no rales/rhonchi/wheezes Abd: +BS, soft, NT/ND, no masses/organomegaly/ascites Ext: warm, 2+ pulses in UE/LE bilaterally, no clubbing/cyanosis or edema, right knee slightly warm to touch Neuro: nonfocal, patient AA&O x 4, speech intact, CN II-XII grossly intact, sensation to light touch intact, no facial droop, moving all extremities on command with equal strength 5/5 Results & Data Results & Data ([facility] Vital Signs (Past 12 Hours) Vital Signs Temp Pulse Resp BP Pulse Ox 06/13/20 02:56 36.9 C 92 H 20 175/97 H 96 Laboratory Results Lab Results 06/13/20 06/13/20 06/13/20 Range/Units 03:28 03:28 03:39 WBC (4.8-10.8) K/uL RBC (4.7-6.1) M/uL Hgb (14.0-18.0) g/dL Hct (42-52) % MCV (80-100) fL MCH (25-34) pg MCHC (32-36) g/dL RDW Std Deviation (36.4-46.3) fL RDW Coeff of Lacey (11.5-14.5) % Plt Count (130-400) K/uL MPV (7.4-10.4) fL Immature Gran % (Auto) % Neut % (Auto) % Lymph % (Auto) % [place] % (Auto) % Eos % (Auto) % Baso % (Auto) % Neut # (Auto) (1.4-6.5) K/uL Lymph # (Auto) (1.2-3.4) K/uL [place] # (Auto) (0.11-0.59) K/uL Eos # (Auto) (0-0.5) K/uL Baso # (Auto) (0-0.2) K/uL Immature Gran # (Auto) (0.00-0.02) K/uL ESR (0-20) mm/hr PT (9.0-12.0) Seconds INR (0.9-1.1) APTT (21.0-31.0) Seconds PTT Ratio Sodium (136-145) mmol/L Potassium (3.5-5.1) mmol/L Chloride (98-107) mmol/L Carbon Dioxide (21-32) mmol/L Anion Gap (3-11) BUN (7-18) mg/dl Creatinine (0.6-1.4) mg/dl Est Cr Clr Drug Dosing ml/min Est GFR ( Amer) Est GFR (Non-Af Amer) BUN/Creatinine Ratio (10-20) Glucose (70-99) mg/dl POC Glucose (70-99) mg/dl Lactate (0.4-2.0) mmol/L Calcium (8.5-10.1) mg/dl Magnesium (1.8-2.4) mg/dl Total Bilirubin (0.2-1) mg/dl AST (15-37) U/L ALT (12-78) U/L Alkaline Phosphatase (45-117) U/L Ammonia (11-32) umol/L Troponin I (0-0.045) ng/ml C-Reactive Protein (0-0.29) mg/dl Total Protein (6.4-8.2) gm/dl Albumin (3.4-5.0) gm/dl Globulin (2.5-4.0) gm/dl Albumin/Globulin Ratio (0.9-2) Urine Color Urine Appearance (Clear) Urine pH (4.5-7.5) Ur Specific [place] (1.000-1.030) Urine Protein (Negative) Urine Glucose (UA) (Negative) Urine Ketones (Negative) Urine Blood (Negative) Urine Nitrite (Negative) Urine Bilirubin (Negative) Urine Urobilinogen (Negative) Ur Leukocyte Esterase (Negative) Ethyl Alcohol mg/dL < 3.0 (0-3) mg/dl COVID-19 Eval Order [facility]FluRsv at [facility] SARS-CoV-2 (PCR) NEGATIVE (Negative) Influenza Type A (PCR) Negative (Neg) Influenza Type B (PCR) Negative (Neg) RSV (RT-PCR) Negative (Neg) 06/13/20 06/13/20 06/13/20 Range/Units 03:39 03:43 Unknown WBC 4.26 L (4.8-10.8) K/uL RBC 4.36 L (4.7-6.1) M/uL Hgb 13.2 L (14.0-18.0) g/dL Hct 39.9 L (42-52) % MCV 91.5 (80-100) fL MCH 30.3 (25-34) pg MCHC 33.1 (32-36) g/dL RDW Std Deviation 50.0 H (36.4-46.3) fL RDW Coeff of Lacey 14.8 H (11.5-14.5) % Plt Count 204 (130-400) K/uL MPV 8.6 (7.4-10.4) fL Immature Gran % (Auto) 0.0 % Neut % (Auto) 71.9 % Lymph % (Auto) 20.2 % [place] % (Auto) 6.3 % Eos % (Auto) 1.6 % Baso % (Auto) 0.0 % Neut # (Auto) 3.06 (1.4-6.5) K/uL Lymph # (Auto) 0.86 L (1.2-3.4) K/uL [place] # (Auto) 0.27 (0.11-0.59) K/uL Eos # (Auto) 0.07 (0-0.5) K/uL Baso # (Auto) 0.00 (0-0.2) K/uL Immature Gran # (Auto) 0.00 (0.00-0.02) K/uL ESR (0-20) mm/hr PT (9.0-12.0) Seconds INR (0.9-1.1) APTT (21.0-31.0) Seconds PTT Ratio Sodium (136-145) mmol/L Potassium (3.5-5.1) mmol/L Chloride (98-107) mmol/L Carbon Dioxide (21-32) mmol/L Anion Gap (3-11) BUN (7-18) mg/dl Creatinine (0.6-1.4) mg/dl Est Cr Clr Drug Dosing ml/min Est GFR ( Amer) Est GFR (Non-Af Amer) BUN/Creatinine Ratio (10-20) Glucose (70-99) mg/dl POC Glucose 139 H (70-99) mg/dl Lactate (0.4-2.0) mmol/L Calcium (8.5-10.1) mg/dl Magnesium (1.8-2.4) mg/dl Total Bilirubin (0.2-1) mg/dl AST (15-37) U/L ALT (12-78) U/L Alkaline Phosphatase (45-117) U/L Ammonia < 10.0 L (11-32) umol/L Troponin I (0-0.045) ng/ml C-Reactive Protein (0-0.29) mg/dl Total Protein (6.4-8.2) gm/dl Albumin (3.4-5.0) gm/dl Globulin (2.5-4.0) gm/dl Albumin/Globulin Ratio (0.9-2) Urine Color Urine Appearance (Clear) Urine pH (4.5-7.5) Ur Specific [place] (1.000-1.030) Urine Protein (Negative) Urine Glucose (UA) (Negative) Urine Ketones (Negative) Urine Blood (Negative) Urine Nitrite (Negative) Urine Bilirubin (Negative) Urine Urobilinogen (Negative) Ur Leukocyte Esterase (Negative) Ethyl Alcohol mg/dL (0-3) mg/dl COVID-19 Eval Order SARS-CoV-2 (PCR) (Negative) Influenza Type A (PCR) (Neg) Influenza Type B (PCR) (Neg) RSV (RT-PCR) (Neg) 06/13/20 06/13/20 06/13/20 Range/Units Unknown Unknown Unknown WBC (4.8-10.8) K/uL RBC (4.7-6.1) M/uL Hgb (14.0-18.0) g/dL Hct (42-52) % MCV (80-100) fL MCH (25-34) pg MCHC (32-36) g/dL RDW Std Deviation (36.4-46.3) fL RDW Coeff of Lacey (11.5-14.5) % Plt Count (130-400) K/uL MPV (7.4-10.4) fL Immature Gran % (Auto) % Neut % (Auto) % Lymph % (Auto) % [place] % (Auto) % Eos % (Auto) % Baso % (Auto) % Neut # (Auto) (1.4-6.5) K/uL Lymph # (Auto) (1.2-3.4) K/uL [place] # (Auto) (0.11-0.59) K/uL Eos # (Auto) (0-0.5) K/uL Baso # (Auto) (0-0.2) K/uL Immature Gran # (Auto) (0.00-0.02) K/uL ESR (0-20) mm/hr PT 10.3 (9.0-12.0) Seconds INR 1.0 (0.9-1.1) APTT 25.4 (21.0-31.0) Seconds PTT Ratio 1.0 Sodium 139 (136-145) mmol/L Potassium 3.9 (3.5-5.1) mmol/L Chloride 107 (98-107) mmol/L Carbon Dioxide 28 (21-32) mmol/L Anion Gap 4.0 (3-11) BUN 15 (7-18) mg/dl Creatinine 0.99 (0.6-1.4) mg/dl Est Cr Clr Drug Dosing 98.8 ml/min Est GFR ( Amer) 95.5 Est GFR (Non-Af Amer) 82.4 BUN/Creatinine Ratio 15.6 (10-20) Glucose 130 H (70-99) mg/dl POC Glucose (70-99) mg/dl Lactate 2.0 (0.4-2.0) mmol/L Calcium 9.1 (8.5-10.1) mg/dl Magnesium 2.2 (1.8-2.4) mg/dl Total Bilirubin 0.4 (0.2-1) mg/dl AST 21 (15-37) U/L ALT 32 (12-78) U/L Alkaline Phosphatase 83 (45-117) U/L Ammonia (11-32) umol/L Troponin I < 0.015 (0-0.045) ng/ml C-Reactive Protein < 0.29 (0-0.29) mg/dl Total Protein 7.6 (6.4-8.2) gm/dl Albumin 3.7 (3.4-5.0) gm/dl Globulin 3.9 (2.5-4.0) gm/dl Albumin/Globulin Ratio 0.9 (0.9-2) Urine Color Urine Appearance (Clear) Urine pH (4.5-7.5) Ur Specific [place] (1.000-1.030) Urine Protein (Negative) Urine Glucose (UA) (Negative) Urine Ketones (Negative) Urine Blood (Negative) Urine Nitrite (Negative) Urine Bilirubin (Negative) Urine Urobilinogen (Negative) Ur Leukocyte Esterase (Negative) Ethyl Alcohol mg/dL (0-3) mg/dl COVID-19 Eval Order SARS-CoV-2 (PCR) (Negative) Influenza Type A (PCR) (Neg) Influenza Type B (PCR) (Neg) RSV (RT-PCR) (Neg) 06/13/20 06/13/20 Range/Units Unknown Unknown WBC (4.8-10.8) K/uL RBC (4.7-6.1) M/uL Hgb (14.0-18.0) g/dL Hct (42-52) % MCV (80-100) fL MCH (25-34) pg MCHC (32-36) g/dL RDW Std Deviation (36.4-46.3) fL RDW Coeff of Lacey (11.5-14.5) % Plt Count (130-400) K/uL MPV (7.4-10.4) fL Immature Gran % (Auto) % Neut % (Auto) % Lymph % (Auto) % [place] % (Auto) % Eos % (Auto) % Baso % (Auto) % Neut # (Auto) (1.4-6.5) K/uL Lymph # (Auto) (1.2-3.4) K/uL [place] # (Auto) (0.11-0.59) K/uL Eos # (Auto) (0-0.5) K/uL Baso # (Auto) (0-0.2) K/uL Immature Gran # (Auto) (0.00-0.02) K/uL ESR 27 H (0-20) mm/hr PT (9.0-12.0) Seconds INR (0.9-1.1) APTT (21.0-31.0) Seconds PTT Ratio Sodium (136-145) mmol/L Potassium (3.5-5.1) mmol/L Chloride (98-107) mmol/L Carbon Dioxide (21-32) mmol/L Anion Gap (3-11) BUN (7-18) mg/dl Creatinine (0.6-1.4) mg/dl Est Cr Clr Drug Dosing ml/min Est GFR ( Amer) Est GFR (Non-Af Amer) BUN/Creatinine Ratio (10-20) Glucose (70-99) mg/dl POC Glucose (70-99) mg/dl Lactate (0.4-2.0) mmol/L Calcium (8.5-10.1) mg/dl Magnesium (1.8-2.4) mg/dl Total Bilirubin (0.2-1) mg/dl AST (15-37) U/L ALT (12-78) U/L Alkaline Phosphatase (45-117) U/L Ammonia (11-32) umol/L Troponin I (0-0.045) ng/ml C-Reactive Protein (0-0.29) mg/dl Total Protein (6.4-8.2) gm/dl Albumin (3.4-5.0) gm/dl Globulin (2.5-4.0) gm/dl Albumin/Globulin Ratio (0.9-2) Urine Color Yellow Urine Appearance Clear (Clear) Urine pH 5.0 (4.5-7.5) Ur Specific [place] > 1.045 H (1.000-1.030) Urine Protein Negative (Negative) Urine Glucose (UA) Negative (Negative) Urine Ketones Negative (Negative) Urine Blood Negative (Negative) Urine Nitrite Negative (Negative) Urine Bilirubin Negative (Negative) Urine Urobilinogen Negative (Negative) Ur Leukocyte Esterase Negative (Negative) Ethyl Alcohol mg/dL (0-3) mg/dl COVID-19 Eval Order SARS-CoV-2 (PCR) (Negative) Influenza Type A (PCR) (Neg) Influenza Type B (PCR) (Neg) RSV (RT-PCR) (Neg) Diagnostic Findings CTA Head: Per STAT rad - intracranial vascular structures including the anterior, middle and posterior cerebral arteries and basilar artery enhance normally. Dural sinuses enhance normally. There is no enhancing mass. No vascular occlusion. CTA Neck: Per STAT-rad - Cervical vascular structures including common carot id arteries, internal carotid arteries and vertebral arteries enhance normally. There is no aneurysm dissection or occlusion. There ismild atherosclerotic change within the proximal internal carotid arteries without stenosis ECG Additional Comments: EKG with SR at 97bpm, 1st degree AV block with YW=941, QRS=88, RIq=857 Code Status & VTE Plan VTE Prophylaxis Plan VTE Prophylaxis will be ordered: Yes PG Care Time/CCT Total # of Minutes Spent Total Time Spent with Patient: Total time spent is greater than 50% in coordination of care (as documented) at patient's floor/unit and/or counseling patient: Coding Level of Care Code 84134 OBS Care - Level 3 Diagnoses Altered mental status R41.82 Altered mental status type: unspecified Hypertension I10 Hypertension type: essential hypertension Hyperlipidemia E78.5 Hyperlipidemia type: unspecified Gastroesophageal reflux disease K21.9 Esophagitis presence: esophagitis presence not specified Deep vein thrombosis (DVT) of lower extremity I82.491 Affected thrombotic vein of extremity: other lower extremity vein Chronicity: unspecified Laterality: right History of total knee replacement Z96.651 Laterality: right (1) Altered mental status Altered mental status type: unspecified Qualified Code(s): R41.82 - Altered mental status, unspecified (2) Hypertension Hypertension type: essential hypertension Qualified Code(s): I10 - Essential (primary) hypertension (3) Hyperlipidemia Hyperlipidemia type: unspecified Qualified Code(s): E78.5 - Hyperlipidemia, unspecified (4) Gastroesophageal reflux disease Esophagitis presence: esophagitis presence not specified Qualified Code(s): K21.9 - Gastro-esophageal reflux disease without esophagitis (5) Deep vein thrombosis (DVT) of lower extremity Affected thrombotic vein of extremity: other lower extremity vein Chronicity: unspecified Laterality: right Qualified Code(s): I82.491 - Acute embolism and thrombosis of other specified deep vein of right lower extremity (6) History of total knee replacement Laterality: right Qualified Code(s): Z96.651 - Presence of right artificial knee joint
--- NOTE | 2020-06-13 07:08 | CT Scan Report ---
CT SCAN OF THE BRAIN WITHOUT IV CONTRAST CLINICAL HISTORY: Change in mental status. COMPARISON STUDY: CT of the brain dated 06/13/2020. TECHNIQUE: Unenhanced axial CT scan of the brain is performed from the vertex to the skull base. A d ose lowering technique was utilized adhering to the principles of ALARA. CT DOSE: 537.48 mGy.cm FINDINGS: Brain parenchyma: The brain parenchyma is normal in appearance. There is no hemorrhage, mass effect, or evidence of acute territorial ischemia by CT criteria. Roman-white matter differentiation is preser mariano. No extra-axial fluid collection is seen. Ventricles, sulci, cisterns: Normal in configuration. Intracranial vasculature: There is mild atherosclerotic calcification of the cavernous carotid arteri es. Calvarium: Unremarkable. Sinuses and mastoids: The visualized paranasal sinuses are clear. The mastoid air cells are well pneu matized. Orbits: The bony orbits are grossly intact. IMPRESSION: There is no hemorrhage, mass effect, or evidence of acute territorial ischemia by CT vanessa kaminski. ACT 112: Negative or not required by law. Electronically signed by: Mariano Guzman M.D. 06/13/2020 7:06 AM
--- NOTE | 2020-06-13 07:14 | CT Scan Report ---
CT ANGIOGRAM OF THE BRAIN; CT ANGIOGRAM OF THE NECK CLINICAL HISTORY: Change in mental status. Stroke like symptoms. COMPARISON STUDY: Unenhanced CT of the brain performed the same day 06/13/2020. TECHNIQUE: Following the IV administration of 122 of Optiray 500, CT angiogram of the head and neck w as performed from the aortic arch to the vertex. Images are reviewed in the axial, sagittal, and gisselle nal planes. 3-D MIPS images are created and assessed. IV contrast was administered without complicati on. All measurements were calculated based on NASCET criteria. A dose lowering technique was utilize d adhering to the principles of ALARA. CT DOSE: 619.22 mGy.cm FINDINGS: Brain parenchyma: The brain parenchyma is normal in appearance. There is no hemorrhage, mass effect, or evidence of acute territorial ischemia by CT criteria. There is no evidence of enhancing mass lesi on on the angiogram phase images. The ventricles, sulci, and cisterns are normal in configuration. Gr ay-white matter differentiation is preserved. No extra-axial fluid collection is seen. Thoracic aorta: Visualized portions of the thoracic aorta are normal in caliber. The aortic arch demo nstrates standard 3-vessel anatomy. Right carotid arterial system: The right common carotid artery is widely patent, as are the right int ernal and external carotid arteries. Mild plaque is seen throughout the internal carotid artery. Left carotid arterial system: The left common carotid artery is widely patent, as are the left mechanical engineering intern al and external carotid arteries. Mild plaque is noted throughout the internal carotid artery. Vertebral arteries: The vertebral arteries are widely patent and codominant. Mild plaque is seen at t he origin of the left vertebral artery. Subclavian arteries: Widely patent bilaterally. Intracranial vasculature: There is mild calcified plaque noted in the cavernous carotid arteries. The internal carotid arteries are patent at the skull base, as are the anterior and middle cerebral franzt gerson bilaterally. The vertebrobasilar system and posterior cerebral arteries are widely patent. The v ertebral arteries are codominant.. There is no aneurysm, high-grade stenosis, or focal vessel cut off seen throughout the intracranial circulation. Jugular veins: Patent bilaterally. Dural sinuses: Patent. Lung apices: Partially visualized upper lobe lung parenchyma appears clear. Soft tissues: The visualized pharyngeal soft tissues are normal in appearance noting angiographic pha se technique. The oropharyngeal airway appears widely patent. The salivary and thyroid glands are nor mal in appearance. No cervical lymphadenopathy is seen. Skeletal structures: The calvarium appears intact. The cervical spine is maintained noting mild multi level spondylosis. No lytic or blastic lesion is seen. Orbits: The bony orbits are intact. Orbital contents are normal as visualized. Sinuses and mastoids: The paranasal sinuses are clear. The mastoid air cells are well pneumatized. IMPRESSION: 1. There is no evidence of hemorrhage, mass effect, or acute territorial ischemia by CT criteria noti ng angiographic phase technique. 2. Unremarkable CT angiogram of the brain. 3. Unremarkable CT angiogram of the neck. ACT 112: Negative or not required by law. Electronically signed by: Mariano Guzman M.D. 06/13/2020 7:13 AM
[2020-06-13] MEDS ORDERED: HYDROCODONE/ACETAMOPHEN 5/325MG TAB PO PRN (07:39)
[2020-06-13] MEDS ORDERED: ONDANSETRON INJ 2 MG/ML 2 ML VIAL IV PRN (07:39)
[2020-06-13] MEDS: LACTATED RINGER'S 1,000 ML IV SCH ×2 (07:47→17:11)
--- NOTE | 2020-06-13 08:07 | Hospitalist Progress Note ---
Date of Service June 13, 2020 Assessment & Plan (1) Altered mental status: 60yo C male presenting with acute onset of altered sensorium, patient feels he is not quite at his baseline and feels there is something not right. Possible toxic encephalopathy, with EtOH +Hydrocodone - however, patient states that he has taken his hydrocodone after drinking before. -tox screen only for opiates and marijuiana -Lyme IgG is positive with the pending Western blot with his previous infection this is not surprising Ct brain normal, CTA head and neck unremarkable -MRI of the brain with and without contrast to evaluate for meningitis or encephalitis. Indicates that the patient may need a lumbar puncture in the future his Eliquis dosing is held with his last dose being at 9 AM on 06/13. I did personally speak to pharmacy and they feel that if we will not give him Eliquis throughout tonight and tomorrow morning he may be amenable to proceed to lumbar puncture in the afternoon of 06/14. To this and he will have 1 dose of heparin 7500 units subcu at 9 PM this evening to cover his thrombophilic state until tomorrow. If the patient does not proceed to any invasive procedures resumption of chronic daily DVT prophylaxis will need to be restarted -Fall and aspiration precautions (2) Hypertension: Blood pressure slightly elevated. -Continue Amlodipine, Losartan, hctz -Continue to monitor (3) Hyperlipidemia: Chronicly on Crestor (4) Gastroesophageal reflux disease: Chronic. Well controlled on Pepcid (5) Deep vein thrombosis (DVT) of lower extremity: History of recent saphenous vein clot. Patient has had clotting in the past starting in his 20's -As above we are holding his Eliquis 1 dose of heparin 7500 units this evening for consideration of invasive procedures. If invasive procedures are not required anticoagulation will need to be restarted (6) History of total knee replacement: Patient states that he has ongoing pain in his right knee. He feels that progress is coming along very slowly. He has been taking Hydrocodone/A cetaminophen as prescribed and participating in rehab to the best of his ability but is unhappy with his progress and level of pain he is still experiencing. He states that the right knee feels warm at baseline and notes no changes in pain or function. Initial surgery 04/13/20. did have or manipulation of stiff knee joint 04/29/21 X-rays appear normal -crp is normal- will ask Dr Spaulding group to evaluate medically did not feel that there to be a joint effusion at this time -Continue Hydrocodone/Acetaminophen q 6 hours PRN F/E/N - LR at 125mL/hr x 2 liters, check PO4, replete electrolytes as needed, Heart healthy diet as tolerated with aspiration precautions Code- Full per discussion with patient. Admission and Anticipated Discharge Date Admission Date: June 13, 2020 Subjective Patient was seen shortly after arriving on his hospital floor. Patient states that he just does not feel right he feels something is wrong. He states last night when he was in his bed he felt he was "going to ". Patient notes a history of Lyme disease and has found some ticks in his home recently. He says he was treated for a prolonged period at one point time in the past by Dr. Barrientos her previous infectious disease doctor. Otherwise he denies any other changes in his medications. He has been dealing with a sore knee replacement he had a knee replacement in April and he had it surgically manipulated in May. He is on chronic Eliquis for DVT prevention for recurrent thrombophilia Physical Exam Physical Exam: The patient appeared well nourished and normally developed. Vital signs as documented. Head exam is normocephalic atraumatic Neck is without JVD, thyromegaly, or carotid bruits. Lungs are clear to auscultation, no focal loss of breath sounds Cardiac exam, Rhythm is regular.. No murmurs, rubs or gallops. No peripheral stigmata of endocarditis Abdominal exam reveals normal bowel sounds, soft non tender, no masses His right lower calf is slightly larger than the left he is well-healed scar from the knee replacement he has no obvious joint effusion or warmth to his right knee which is the replaced knee Neurologic exam is alert and oriented, no focal loss of strength or sensation she states she just does not feel right Skin is without bruises or rashes no splinter hemorrhages or Osler's nodes Psychologically is without concerns for anxiety or depression Results & Data Results & Data ([facility]) Vital Signs (Past 12 Hours) Vital Signs Temp Pulse Resp BP Pulse Ox 06/13/20 06:01 87 18 154/77 H 94 06/13/20 06:00 89 18 92 06/13/20 05:30 94 H 16 168/84 H 96 06/13/20 05:02 93 H 16 94 06/13/20 05:01 96 H 19 173/93 H 95 06/13/20 05:00 95 H 18 06/13/20 04:30 93 H 20 166/100 H 06/13/20 04:00 97 H 14 158/82 H 97 06/13/20 03:30 97 H 18 166/93 H 97 06/13/20 03:16 96 H 20 97 06/13/20 03:00 175/97 H 06/13/20 02:56 98.4 F 92 H 20 175/97 H 96 PG Care Time/CCT Total # of Minutes Spent Total Time Spent with Patient: Total time spent is greater than 50% in coordination of care (as documented) at patient's floor/unit and/or counseling patient: Coding Level of Care Code None Diagnoses Altered mental status R41.82 Altered mental status type: unspecified Hypertension I10 Hypertension type: essential hypertension Hyperlipidemia E78.5 Hyperlipidemia type: unspecified Gastroesophageal reflux disease K21.9 Esophagitis presence: esophagitis presence not specified Deep vein thrombosis (DVT) of lower extremity I82.491 Affected thrombotic vein of extremity: other lower extremity vein Chronicity: unspecified Laterality: right History of total knee replacement Z96.651 Laterality: right Time Spent (min) 45 (1) Hyperlipidemia Hyperlipidemia type: unspecified Qualified Code(s): E78.5 - Hyperlipidemia, unspecified (2) Deep vein thrombosis (DVT) of lower extremity Affected thrombotic vein of extremity: other lower extremity vein Chronicity: unspecified Laterality: right Qualified Code(s): I82.491 - Acute embolism and thrombosis of other specified deep vein of right lower extremity (3) History of total knee replacement Laterality: right Qualified Code(s): Z96.651 - Presence of right artificial knee joint (4) Altered mental status Altered mental status type: unspecified Qualified Code(s): R41.82 - Altered mental status, unspecified (5) Gastroesophageal reflux disease Esophagitis presence: esophagitis presence not specified Qualified Code(s): K21.9 - Gastro-esophageal reflux disease without esophagitis (6) Hypertension Hypertension type: essential hypertension Qualified Code(s): I10 - Essential (primary) hypertension
[2020-06-13 08:27] LABS: Base Excess VBG 2.1 mEq/L; pH VBG 7.45 (7.36-7.41)
--- NOTE | 2020-06-13 08:50 | XRay Report ---
RIGHT KNEE 2 VIEWS CLINICAL HISTORY: Right knee pain and swelling. FINDINGS: AP and crosstable lateral views the right knee are compared to study dated 05/25/2020. The s keletal structures are osteopenic. A right knee arthroplasty is in near-anatomic alignment. No peripr osthetic lucency is identified. There has been undersurface remodeling of the patella. No fracture is identified. There is a joint effusion, with soft tissue edema around the knee. IMPRESSION: 1. Joint effusion and soft tissue swelling with no fracture identified. 2. A right knee arthroplasty is in near anatomic alignment. Electronically signed by: Mariano Guzman M.D. 06/13/2020 8:48 AM
--- NOTE | 2020-06-13 08:52 | XRay Report ---
SINGLE VIEW CHEST CLINICAL HISTORY: Sepsis. FINDINGS: An AP, portable, upright chest radiograph is compared to study dated 03/24/2020. The cardiom ediastinal silhouette is unremarkable. There is bibasilar atelectasis. The lungs and pleural spaces a re otherwise clear. No pneumothorax is seen. The bony thorax is grossly intact. IMPRESSION: No active disease in the chest. ACT 112: Negative or not required by law. Electronically signed by: Mariano Guzman M.D. 06/13/2020 8:51 AM
[2020-06-13] MEDS ORDERED: APIXABAN 2.5 MG TAB PO SCH (09:00)
[2020-06-13] MEDS: LOSARTAN POTASSIUM 50 MG TAB PO SCH ×2 (09:07→10:34)
[2020-06-13] MEDS: FAMOTIDINE 20 MG TAB PO SCH ×2 (09:07→10:32)
[2020-06-13] MEDS: amLODIPine BESYLATE 5 MG TAB PO SCH ×2 (09:07→10:32)
[2020-06-13] MEDS: hydroCHLOROthiazide 25 MG TAB PO SCH (09:07)
[2020-06-13 09:08] LABS: Procalcitonin < 0.05 ng/ml (0-0.5)
[2020-06-13 09:11] LABS: Phosphorus 3.9 mg/dl (2.5-4.9); Thyroid Stimulating Hormone 0.42 uIu/ml (0.300-4.500)
[2020-06-13 09:13] LABS: Lyme Ab IgM w/WB Rflx Negative (Negative)
[2020-06-13 09:29] LABS: Lyme Ab IgG w/WB Rflx Positive (Negative)
[2020-06-13] MEDS ORDERED: Nursing to Pharmacy Communication SCH (10:45)
--- NOTE | 2020-06-13 11:52 | Electrocardiogram Report ---
Test Reason : Blood Pressure : / mmHG Vent. Rate : 097 BPM Atrial Rate : 097 BPM P-R Int : 226 ms QRS Dur : 088 ms QT Int : 358 ms P-R-T Axes : 061 064 039 degrees QTc Int : 454 ms Sinus rhythm with 1st degree A-V block Septal infarct , age undetermined Abnormal ECG When compared with ECG of 24-MAR-2020 14:52, Vent. rate has increased BY 33 BPM No significant change Confirmed by Nghia Vaughn ([id number]) on 06/13/2020 11:51:49 AM Referred By: REFERRED SELF Confirmed By:Nghia Vaughn
[2020-06-13] MEDS ORDERED: LORazepam 0.5 MG TAB PO PRN ×2 (13:16→17:14)
[2020-06-13] MEDS: DOCUSATE SODIUM 100 MG CAP PO SCH ×2 (14:12→20:39)
[2020-06-13] MEDS ORDERED: GADOBUTROL 10ML VIAL IV ONE (14:27)
--- NOTE | 2020-06-13 15:19 | Magnetic Resonance Report ---
MRI OF THE BRAIN COMBO CLINICAL HISTORY: Strokelike symptoms. Change in mental status. COMPARISON STUDY: CT of the brain dated 06/13/2020. MRI of the brain dated 09/12/2013. TECHNIQUE: MRI of the brain was performed utilizing various T1 and T2-weighted sequences in the axial , sagittal, and coronal planes. Contrast-enhanced sequences were acquired following the administratio n of 10 cc of Gadavist. FINDINGS: Brain parenchyma: The brain parenchyma is normal in appearance. There is no hemorrhage or mass effect . There is no restricted diffusion to suggest acute ischemia. There is no leptomeningeal or pachymeni ngeal enhancement. No enhancing mass lesion is identified on the postcontrast images. Roman-white misael er differentiation is preserved. No extra-axial fluid collection is seen. The cerebellar tonsils are normal in configuration. Ventricles, sulci, and cisterns: Normal in configuration. Pituitary and sella: Unremarkable. Intracranial vasculature: Normal flow voids are maintained at the skull base. Orbits: The bony orbits are grossly intact. Orbital contents are normal in appearance. Sinuses and mastoids: Clear. Calvarium: Unremarkable. Cervical cord: Partially visualized cervical spinal cord is normal in morphology and signal intensity . IMPRESSION: No intracranial abnormality is identified. ACT 112: Negative or not required by law. Electronically signed by: Mariano Guzman M.D. 06/13/2020 3:18 PM
[2020-06-13] MEDS ORDERED: HEPARIN SOD 5,000 UNIT/0.5 ML VIAL SQ ONE (21:00)
[2020-06-13] MEDS ORDERED: LOSARTAN POTASSIUM 50 MG TAB PO SCH (21:00)
[2020-06-13] MEDS ORDERED: ROSUVASTATIN CALCIUM 10 MG TAB PO SCH (21:00)
[2020-06-14] MEDS: ACETAMINOPHEN 325 MG TAB PO PRN ×2 (02:58→13:54)
[2020-06-14 06:44] LABS: Eosinophils # (auto) 0.12 K/uL (0-0.5); Eosinophils % (auto) 3.8 %; Hematocrit (blood only) 37.5 % (42-52); Hemoglobin 12.1 g/dL (14.0-18.0); Lymphocytes # (auto) 0.85 K/uL (1.2-3.4); Lymphocytes % (auto) 26.8 %; Mean Corpuscular Hemoglobin 30.6 pg (25-34); Mean Corpuscular Hgb Conc 32.3 g/dL (32-36); Mean Corpuscular Volume 94.9 fL (80-100); Mean Platelet Volume 8.3 fL (7.4-10.4); Monocytes # (auto) 0.34 K/uL (0.11-0.59); Monocytes % (auto) 10.7 %; Neutrophils # (auto) 1.86 K/uL (1.4-6.5); Neutrophils % (auto) 58.7 %; Platelet Count 175 K/uL (130-400); RDW Standard Deviation 52.2 fL (36.4-46.3); Red Blood Count 3.95 M/uL (4.7-6.1); White Blood Count 3.17 K/uL (4.8-10.8)
[2020-06-14 07:13] LABS: BUN Creatinine Ratio 14.8 (10-20); Calcium 8.6 mg/dl (8.5-10.1); Creatinine Clr Calc Pharmacy 112.4 ml/min; Est GFR (African American) 108.7; Est GFR (Non-African American) 93.8; Potassium 3.7 mmol/L (3.5-5.1)
[2020-06-14] MEDS: amLODIPine BESYLATE 5 MG TAB PO SCH (08:34)
[2020-06-14] MEDS: hydroCHLOROthiazide 25 MG TAB PO SCH (08:34)
[2020-06-14] MEDS: FAMOTIDINE 20 MG TAB PO SCH (08:34)
[2020-06-14] MEDS: DOCUSATE SODIUM 100 MG CAP PO SCH (08:35)
--- NOTE | 2020-06-14 10:15 | Neurology Consultation ---
Date of Consultation June 14, 2020 Assessment & Plan (1) Altered mental status: Resolved altered mental status. Patient awoke early yesterday morning at around 1:30 AM with an intense feeling of impending doom with an associated feeling of being outside of himself and transient 4 limb paresthesias and a dimming down of his vision. The symptoms occurred several hours after consuming several beers with friends, followed by taking his Vicodin prior to going to bed. The significance of using one of his 's medical marijuana tablets a day or 2 prior for insomnia is not entirely clear. He may have had an acute dysphoric reaction or panic attack. He is neurologically intact and has had a fairly thorough negative neuro imaging assessment thus far. He does not have any signs or symptoms to suggest meningitis or encephalitis. I do not think he requires any additional neurological testing at this point in time. Patient should moderate alcohol consumption going forward. Be careful not to mix narcotic analgesics with alcohol. No further immediate neurological recommendations. History of Present Illness Reason for Consultation: Transient weakness Requesting Physician: Aidan Alamo MD Attending Physician: Sudhir Pinzon DO History of Present Illness The patient is a 60-year-old male who presented to the emergency department very early yesterday morning with a complaint of awakening feeling confused, feeling as if he was going to , as if something was very wrong with him. The day prior he was out with some friends celebrating his 60th birthday. He had had a few alcoholic beverages, came home, and had taken one of his Vicodin tablets pr ior to going to bed. He recalls awakening from sleep with a woozy sensation of his was floating, outside of his body. Everything felt weak, he also describes some transient paresthesias affecting all 4 limbs and around the mouth. He recalls his vision dimming down and feeling as if he might pass out at that time as well. He was apparently very frightened and felt as if he was going to . He also admits to taking one of his 's medical marijuana pills a day or 2 prior to assist with insomnia. He has completed a thorough neuro imaging evaluation including CT of the head, CT angiography of the head and neck, and brain MRI. No abnormalities identified on any of these tests. He is afebrile. No evidence of leukocytosis. No significant abnormalities with a comprehensive metabolic panel. Normal ammonia level. Urine drug screen was positive for opiates and marijuana. And ethyl alcohol level was less than 3.0. He does relay a history of Lyme disease several years ago and did have a positive Lyme IgG yesterday. Western blot pending. Patient also relays a history of COVID-19 exposure with positive symptoms about 1 month ago, was ill with COVID-19. A recent Covid PCR test was negative. History also notable for recent right total knee arthroplasty which is still been causing him some pain and stiffness, underwent manipulation under general anesthesia within the past 2 weeks. Patient admits that he is feeling fine this morning, no residual neurological symptoms. Allergies Allergy/AdvReac Type Severity Reaction Status Date / Time atorvastatin AdvReac Intermediate Severe Verified 06/13/20 02:57 myopathy after 4 days FRESH FRUIT Allergy Intermediate ITCHING Uncoded 06/13/20 02:57 LIPS Home Medications Medication Instructions Recorded Confirmed Type hydrochlorothiazide 25 mg tablet 25 mg PO DAILY #90 tab 03/10/20 06/13/20 Rx losartan 100 mg tablet 100 mg PO DAILY #90 tab 03/29/20 06/13/20 Rx Eliquis 2.5 mg PO BID 04/13/20 06/13/20 History amlodipine [Norvasc] 5 mg PO DAILY 04/13/20 06/13/20 History famotidine [Pepcid] 20 mg PO DAILY PRN 04/13/20 06/13/20 History docusate sodium 100 mg PO BID #30 cap 04/14/20 06/13/20 Rx tramadol 50 - 100 mg PO Q4H PRN #20 tab 04/14/20 06/13/20 Rx rosuvastatin 10 mg tablet 10 mg PO HS #90 tab 05/05/20 06/13/20 Rx hydrocodone-acetaminophen 1 tab PO Q6H PRN 05/27/20 06/13/20 History Patient History Medical History Deep vein thrombosis (DVT) of lower extremity FIRST DX AT AGE 26>"HAS HAD NUMEROUS SUPERFICIAL CLOTS" (REASON FOR ELIQUIS) Environmental and seasonal allergies Gastroesophageal reflux disease History of colon polyps "BENIGN" History of COVID-19 presumed positive s/p Right TKA April 2020. patient discharged on 04/14/20, tested positive 04/15/20 for covid-19 with severe cough, fever and fatigue. patient experienced same symptoms starting on 04/17/20. patient unable to get tested as he had no way to drive since was severely ill. no current symptoms for patient nor currenty. Hyperlipidemia Hypertension Insomnia Leukopenia Obstructive apnea "BORDERLINE" DOES NOT USE DEVICE Osteoarthritis of knee Surgical History Family history of reaction to anesthesia MOTHER-SEVERE PROLONGED CONFUSION H/O hand surgery LEFT History of colonoscopy History of esophagogastroduodenoscopy (EGD) History of total knee replacement Right [place] teeth removed Family History Father Heart disease Stroke Coronary heart disease Mother Stroke Grandfather (Maternal) Family history of diabetes mellitus Denies family history of Ovarian cancer Prostate cancer Myocardial infarction Breast cancer Colorectal cancer Lung disease Social History Smoking Status: Never smoker Second Hand Exposure: No; Hx Alcohol Use: Yes Alcohol type: beer Hx Substance Use: No Preferred Language: Yakut Communication Ability: Effective Visual Impairment: No Limitations Hearing Ability: Normal Rehabilitation Inspector Required: No Beliefs That Will Affect Care: None marital status: Current Living Situation: Spouse current occupational status: employed current [place] [employer] [place] Feels Safe at Home: Yes Childhood Exposure to Second-Hand Smoke: No caffeine: Yes Dental Care, Regularly: No Physical Activity Frequency: Daily Seatbelt Use: always Sunscreen Use: Yes Assistive Devices: Crutches Review of Systems Constitutional: no fever and no chills Eyes: no blind spots and no diplopia Ear, Nose, Mouth, Throat: no hearing loss Respiratory: no cough and no dyspnea Cardiovascular: no chest pain and no palpitations Gastrointestinal: no nausea and no vomiting Genitourinary: no dysuria and no urinary incontinence Musculoskeletal: no myalgia Integumentary: no rash and no lesions Neurologic: as per Subjective / HPI Psychiatric: no depression and no anxiety Hematologic / Lymphatic: no easy bleeding and no easy bruising Exam (Neuro) Constitutional: well developed and well nourished; no acute distress Eyes: normal visual whalen by confrontation, PERRL, normal accommodation and EOM intact bilaterally; no fundoscopic abnormality, no nystagmus and no papilledema Cardiovascular: Vessels: normal carotid upstroke; no carotid bruit Neurologic: Oriented to:: Person, Place and Time Memory: Short Term Intact and Remote Intact Attention: Span Intact and Concentration Intact Language: Naming Objects and Repeating Phrases Speech Fluency: negative Dysarthria Speech Aphasia: negative Aphasia Fund of Knowledge: Current Events, Past History and Vocabulary Cranial Nerves: Normal II (Visual whalen full to confrontation, visual acuity normal), III, IV, (Pupils equal round reactive to light and accommodation, eye movements normal), V (Facial sensation intact), VII (There is no facial droop or weakness), VIII (Hearing intact), IX, X (Palate elevates to midline), XI (Shoulder shrug intact) and XII (Tongue protrudes to midline) Motor Strength: Normal Lower Extremities and Normal Upper Extremities; negative Pronator Drift Motor Tone: Normal Lower Extremities and Normal Upper Extremities Muscle Bulk/Involuntary Movements: No Involuntary Movements; negative Muscle Atrophy Sensation: Light Touch Intact, Pain/Temperature Intact, Vibration Intact and Proprioception Intact Coordination: Normal; negative Limited Balance, Dysdiadochokinesia, Finger-Nose Abnormal and Heel-Hidalgo Abnormal Deep Tendon Reflexes: Rt Triceps: 2+, Lt Triceps: 2+, Rt Biceps: 2+, Lt Biceps: 2+, Rt Brachioradialis: 2+, Lt Brachioradialis: 2+, Rt Patellar: 2+, Lt Patellar: 2+, Rt Ankle: 2+ and Lt Ankle: 2+ Special Tests: negative Babinski Present Gait: Normal Station and Gait Results & Data ([facility]) Vital Signs (Past 12 Hours) Vital Signs Temp Pulse Pulse Resp BP Pulse Ox 06/14/20 07:24 36.3 C L 61 18 133/81 96 06/14/20 07:06 57 L 06/14/20 03:35 36.4 C L 61 18 152/84 H 96 06/13/20 23:21 74 06/13/20 23:05 36.9 C 68 18 159/90 H 96 Laboratory Results WBC 3.17, hemoglobin 12.1, hematocrit 37.5, platelet count 175, ESR 27, sodium 140, potassium 3.7, BUN 13, creatinine 0.87, glucose 101, calcium 8.6, ammonia less than 10.0, AST 21, ALT 32, troponin less than 0.015, CRP less than 0.29, vitamin B12 198, TSH 0.420, urine drug screen positive for opiates and marijuana. Diagnostic Findings CT of the head, CT angiography of the head and neck, and brain MRI are as described in history of present illness. I reviewed the images as well as the radiologist's interpretation of these tests. Electrocardiogram reveals sinus rhythm with first-degree AV block, 97 bpm. PG Care Time/CCT Total # of Minutes Spent Total Time Spent with Patient: Total time spent is greater than 50% in coordination of care (as documented) at patient's floor/unit and/or counseling patient: Coding Level of Care Code 27258 Inpt Consult Level 4 Diagnoses Altered mental status R41.82 Altered mental status type: unspecified (1) Altered mental status Altered mental status type: unspecified Qualified Code(s): R41.82 - Altered mental status, unspecified
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
--- NOTE | 2020-06-14 16:05 | Discharge Summary ---
Date of Service June 14, 2020 Admission HPI Per Admitting Provider Gui Burnett is a 60yo C male with history of HTN, HLP, GERD presenting with altered sensorium. Patient was in his usual state of health today. He went out with friends for his 60th birthday - had 5-6 beers over the course of the evening as well as some chicken wings. He came home and took his PM medications to include one tab of hydrocodone/acetaminophen, Eliquis and Crestor. He went to bed and woke up at 0130 feeling odd. He reports feeling "woozy" and "floaty" like "everything is a dream". He felt a warm almaguer start at his feet and move up his body and his legs and arms felt weak and he maybe had some slight slurring of his speech. He took his vital signs at home around 0130 and reports that they were all within normal range. He tried to go back to sleep to see if the feelings would pass and woke up again 15 minutes later still with the same sensations. He states that the sensations come in waves. He sometimes thinks he is going to pass out and at other times thinks he is going to . He had some nausea as well as dry heaving and occasional palpitations. Patient denies fever, chills, LOUISE, visual disturbance, neck pain or stiffness, hearing loss or tinnitus. Patient denies chest pain, cough, SOB, abdominal pain, vomiting or diarrhea, constipation Patient denies dysuria, hematuria, joint pain, rashes No additional complaints at this time No new medications or dosage changes - patient reports taking Hydrocodone 1 tab every 6 hours for pain. He has been taking this medication since his knee replacement on 06/03 No recent travel He does have a history of Lyme disease but reports no recent tick bites. He has seen a few ticks in his bed presumably from the dog Admission Exam Per Admitting Provider General: patient resting comfortably, is distressed about his current situation, non-toxic in appearance, AA&O x 4, following commands Skin: warm, dry, intact, small cristobal on medial portion of right leg, no bleeding/cellulitis/evidence of infection, right knee with well healed wound, no bleeding/drainage/erythema or dehiscence HEENT: NC/AT, PERRL, EOMI with faint horizontal nystagmus, anicteric sclera, conjunctiva without injection, external ear normal to inspection and nontender, nares patent, dry mucus membranes, dentition intact, no oropharyngeal lesions, neck supple, trachea midline, no LAD, no thyromegaly, no JVD Heart: +S1/S2, regular, no m/r/g, no carotid bruits Lungs: equal air entry bilaterally, no rales/rhonchi/wheezes Abd: +BS, soft, NT/ND, no masses/organomegaly/ascites Ext: warm, 2+ pulses in UE/LE bilaterally, no clubbing/cyanosis or edema, right knee slightly warm to touch Neuro: nonfocal, patient AA&O x 4, speech intact, CN II-XII grossly intact, sensation to light touch intact, no facial droop, moving all extremities on command with equal strength 5/5 Principal Diagnosis metabolic encephalopathy / intoxication in setting of mixed ethanol + opioid Discharge Exam General: 60 year old male who is alert, oriented, and appears in no acute distress. HEENT: NCAT. Eyes - Sclera are white, anicteric, and without injection. PERRL. EOMs display full ROM bilaterally. Cardiac: Normal rate and regular rhythm; S1 and S2 present with no murmurs, rubs, or gallops. Pulmonary: Good respiratory effort with symmetric expansion of the chest. No use of accessory muscles. Lungs were clear to auscultation bilaterally with no crackles or wheezes. Abdominal: Normoactive bowel sounds. Abdomen was soft, nondistended, and non- tender to palpation. Neuro: - Cranial Nerves: CN I, IX, and X - not assessed. II - PERRL. III/IV/ - EOMs WNL. No nystagmus. V - Facial sensation in tact in all three divisions; jaw opening WNL. VII - Patient is able to smile symmetrically and keep eyes close against resistance. VIII - Patient is able to hear finger snapping equally and appropriately. Patient is able to rotate head and shrug shoulders against resistance. XI - Soft palate raises equally and appropriately while saying "ah." XII - patient is able to stick out tongue and deviate from [id number] appropriately. - Motor: UE - Finger, wrist, elbow, and shoulder strength is 5/5 bilaterally. LE - LLE demonstrating 5/5 strength b/l; RLE strength testing limited by pain from recent operation - quite stiff and with limited knee flexion abilities on exam. Surgical scar is c/d/i. - Sensation: UE and LE sensation to light touch is grossly intact bilaterally. - Reflexes - Biceps 2+ b/l; brachioradialis 2+ b/l; patellar 2+ on RLE / not assessable on left given post-op; No clonus. - [id number]: WNL b/l. No dysmetria. Psych: Well-developed, well-nourished, appropriately dressed for occasion. Behavior is cooperative and appropriate. Affect is WNL. Insight is appropriate. Discharge Data Allergies Allergy/AdvReac Type Severity Reaction Status Date / Time atorvastatin AdvReac Intermediate Severe Verified 06/13/20 02:57 myopathy after 4 days FRESH FRUIT Allergy Intermediate ITCHING Uncoded 06/13/20 02:57 LIPS Consultations 06/13/20 04:21 ED Decision to Admit Stat 06/13/20 17:14 Consult Neurology Routine 06/14/20 07:00 Consult Orthopedic Surgery Routine Ordered Studies 06/13/20 03:05 CT head/brain wo con Urgent 06/13/20 03:17 CT angio head w con Urgent CT angio neck with con Urgent 06/13/20 13:07 MR brain wo/w con Routine Hospital Course (1) Altered mental status: This is a 60-year-old gentleman with a notable history of total knee replacement in 04/2020 who presented to [facility] after awaking early in the morning on 06/13 with feelings of impending doom as well as whole body paresthesias, visual disturbances, dysarthria, and a dissociative sensation. Of note, the symptoms occurred recently after consuming 6-7 beers as well as two [place] just a few hours prior. Upon his arrival, he underwent several tests to evaluate the etiology of the symptoms; his chemistries, CBC, and inflammatory markers were grossly within normal limits and not suggestive of infection. UDS did return positive for opiates (in setting of prescribed [place] use) and THCwhich patient says he utilize several days prior. While many of his Lyme studies are still pending, his IgG came back positiveunsurprisingly in the setting of known previous infection. His ECG did not show any acute changes. Vascular and noncontrast imaging of the brain did not reveal focal abnormalities. MRI of the brain similarly did not show focal abnormalities. He received supportive care and demonstrated marked improvement prior to his discharge. There was no indication for antimicrobial therapy while he was here. He was seen by neurology who did not recommend any further testing. The primary cause of his symptoms is thought to be due to metabolic encephalopathy/intoxication borne from an interaction between his [place] and alcohol use. We spent significant time counseling on the dangers of these interactions and the importance of avoiding them in the future. He is amenable to minimizing [place] use unless absolutely necessary, and to defer alcohol consumption until [place]/tramadol is no longer necessary. Orthopedics also saw him during this visit given increased swelling/stiffness around the right knee. Thankfully, there were no gross signs of infection. However, they did recommend utilizing crutches and continuing range of motion ex ercises/utilization of PT for ongoing care and recovery. No medications were added during this stay. He is to follow-up with his PCP within 1 year to review this visit and ensure recovery. The only pending labs are the remainder of his Lyme titers. (2) History of total knee replacement: (3) Hypertension: (4) Hyperlipidemia: (5) Deep vein thrombosis (DVT) of lower extremity: Total Time Total Time Spent Total Time Spent (In Minutes): <30 minutes Discharge Plan Discharge Items Patient Disposition: Home - Self-Care Reason For Visit: confusion,altered mental status Discharge Diagnosis: metabolic encephalopathy, intoxication Condition on Discharge: Good Activity: Per Instructions section Non-emergency contact: Primary Care Provider Call non-emergency contact if: you have any medication questions, your symptoms worsen and your temperature is above 101 Follow-up/Referrals: Rogerio Spear MD [Primary Care Provider] - 06/18/20 11:00 am (Your appointment is with the physicain fleet assistant, Maxine Atkins. If you have any questions or need to change this appointment, please call [phone].) Diet: Regular Addtl Attending Provider Instructions: You were seen at [facility] for evaluation of confusion and acute dysphoria. During your time here, you underwent extensive work-up to further characterize the cause of these symptoms. Thankfully, there were no clear signs of infection or inflammation to explain your symptoms. Given the recency of alcohol and opioid combination prior to the onset of symptoms, this is strongly suspected as the primary culprit. As discussed, it is imperative to not combine opioids (e.g., hydrocodone, Tramadol) and alcohol - together, these two substances can depress the central nervous system to a point where they create profound somnolence, and increases the risk of respiratory depression. Please follow up with your PCP in 1 week to review this visit. In the interim, if you develop a new fever (>100.4), chills, night sweats, cough, loss of appetite, weakness in one part of your body, new numbness/tingling, difficulty talking, or recurrence of your symptoms, please report immediately to the ER for repeat evaluation. Pending Studies at Discharge: Yes Stand-Alone Forms: [facility], Smoking Cessation Medications and DC Order Prescriptions: Continued hydrochlorothiazide 25 mg tablet 25 mg PO DAILY Qty: 90 RF: 3 losartan 100 mg tablet 100 mg PO DAILY Qty: 90 RF: 1 rosuvastatin 10 mg tablet 10 mg PO HS Qty: 90 RF: 3 amlodipine [Norvasc] 5 mg tablet 5 mg PO DAILY RF: 0 Eliquis 2.5 mg tablet 2.5 mg PO BID RF: 0 famotidine [Pepcid] 20 mg Tablet 20 mg PO DAILY PRN (Reason: (Drug) Ingestion) RF: 0 docusate sodium 100 mg Capsule 100 mg PO BID Qty: 30 RF: 0 Discontinued tramadol 50 mg Tablet 50 - 100 mg PO Q4H PRN (Reason: pain) Qty: 20 RF: 0 hydrocodone-acetaminophen 5-325 mg Tablet 1 tab PO Q6H PRN (Reason: Pain) RF: 0 Discharge Orders: Discharge Order (Routine); Ordered 06/14/20 Ordered By: Sudhir Jameson Admission Data Admit Date/Time: 06/13/20 05:08 Attending Provider: Sudhir Pinzon Admit Provider: Melanie Vazquez Primary Care Provider: Rogerio Spear Other Providers: Melanie Vazquez ; Chance Carmichael ; Brian Caceres Other Interventions: Discharge Summary Assessment (RN) Last Done: 06/14/20 16:14 Supervising Physician Co-Signing Physician Notes I personally examined the patient and verified all vigil points of history and exam, discussed case, and agree with decision making with Dr Jameson. Feeling better, feeling more like himself. Feels up to going home. Vitals noted, in general he is awake and alert pleasant no distress. HEENT normocephalic atraumatic mucous membranes moist. Breathing unlabored no accessory muscle use good effort. Skin shows no rashes no pallor or icterus. Neuro shows no focal deficits. Altered mental statusalmost certainly related to beer and hydrocodone. Now improved, stable for home. He notes he will no longer be taking narcotics, will be much more cautious with alcohol. Otherwise as above Resident Activity Tracking Resident Involvement: Resident Care Provided Care Provided: Adult Hospital Medicine
--- NOTE | 2020-06-14 17:26 | Billing Data ---
Date of Service June 14, 2020 Coding Level of Care Code 84188 OBS Care - Discharge
[2020-06-16 02:51] LABS: 18KDIGG Band NON-REACTIVE; 23KDIGG Band NON-REACTIVE; 23KDIGM Band NON-REACTIVE; 28KDIGG Band NON-REACTIVE; 30KDIGG Band NON-REACTIVE; 39KDIGG Band NON-REACTIVE; 39KDIGM Band NON-REACTIVE; 41KDIGG Band REACTIVE; 41KDIGM Band NON-REACTIVE; 45KDIGG Band NON-REACTIVE; 58KDIGG Band NON-REACTIVE; 66KDIGG Band NON-REACTIVE; 93KDIGG Band NON-REACTIVE; Lyme Antibodies, WB IgG NEGATIVE (NEGATIVE); Lyme Antibodies, WB IgM NEGATIVE (NEGATIVE)
[2020-06-16 03:42] LABS: Codeine Urine NEGATIVE ng/mL (<50); Hydrocodone Urine 782 ng/mL (<50); Hydromor Urine 307 ng/mL (<50); Marijuana Quant, GCMS Urine 1210 ng/mL (<5); Morphine Urine NEGATIVE ng/mL (<50); Norhydrocodone Conf Ur 403 ng/mL (<50); Noroxycodone Urine NEGATIVE ng/mL (<50); Oxycodone Urine NEGATIVE ng/mL (<50); Oxymorph Urine NEGATIVE ng/mL (<50)
== END 2020-06-14 17:15 | disposition home or self-care (01) ==
LOC: ED 02:48 → 2N 02:48 → SUATTDRO 05:08 → 2N 07:40

== ENCOUNTER 2020-09-04 16:12 | Inpatient (IN) ==
--- NOTE | 2020-09-04 17:00 | Emergency Department Note ---
History of Present Illness General Chief complaint: Mental Health Evaluation Stated complaint: SEVERE DEPRESSION,RIGHT LEG PAIN Time Seen by Provider: 09/04/20 16:32 Source: patient History of Present Illness Provider complaint: Depression Onset (ago): week(s) Location: head Pain Consistency: + constant Maximum Pain Intensity: 6 Quality: + other (Depression) Exacerbated By: + other (Right knee pain) Associated symptoms: no chest pain, no cough, no fever/chills, no nausea/vomiting or no shortness of breath This is a 60-year-old male who presents for mental health evaluation. He states he has been depressed for several weeks now. He does not have any prior history of depression although depression runs in his family. He does state that he has been depressed because he has chronic pain to his right knee since his knee replacement in April of this year. He states that he also got Covid after his knee replacement. He was diagnosed with complex regional pain syndrome and his pain is unrelenting. He is barely able to sleep at night. He is on gabapentin and Ultram but they are not controlling his pain. He also attempted to take his 's medical marijuana at one point but it did not help. He is scheduled for nerve block on of next week. His depression has been getting much worse. Yesterday he was driving to the orthopedic doctor's office and he wanted to drive his car 60 mph into a concrete barrier. He does not feel that way today. He states this depression is just not him. He cannot handle his pain at this point. He feels he needs mental help and his orthopedic doctor agrees. He denies any drug or alcohol abuse. He has had no fever, cough or cold symptoms, chest pain, shortness of breath, abdominal pain, diarrhea, vomiting or urinary symptoms. He states he was diagnosed with superficial clots on ultrasound in June but he feels like they are getting better. He is on full dose Eliquis and follows with the anticoagulation clinic. Home Medications Medication Instructions Recorded Confirmed Type losartan 100 mg tablet 100 mg PO DAILY #90 tab 03/29/20 09/04/20 Rx amlodipine 5 mg tablet (Norvasc) 5 mg PO DAILY 04/13/20 09/04/20 History acetaminophen 500 mg tablet 1,000 mg PO Q8H tab 07/21/20 09/04/20 History (Tylenol Extra Strength) apixaban 5 mg tablet (Eliquis) 5 mg PO BID #180 tab 07/21/20 09/04/20 Rx hydrochlorothiazide 25 mg tablet 25 mg PO DAILY tab 07/21/20 09/04/20 History gabapentin 600 mg tablet 600 mg PO TID 09/04/20 09/04/20 History (Neurontin) rosuvastatin 10 mg tablet (Crestor) 10 mg PO HS 09/04/20 09/04/20 History Allergies Allergy/AdvReac Type Severity Reaction Status Date / Time atorvastatin AdvReac Intermediate Severe Verified 09/04/20 17:44 myopathy after 4 days FRESH FRUIT Allergy Intermediate ITCHING Uncoded 09/04/20 17:44 LIPS Past Med/Surg History Medical History Deep vein thrombosis (DVT) of lower extremity FIRST DX AT AGE 26>"HAS HAD NUMEROUS SUPERFICIAL CLOTS" (REASON FOR ELIQUIS) Environmental and seasonal allergies Gastroesophageal reflux disease History of colon polyps "BENIGN" History of COVID-19 presumed positive s/p Right TKA April 2020. patient discharged on 04/14/20, tested positive 04/15/20 for covid-19 with severe cough, fever and fatigue. patient experienced same symptoms starting on 04/17/20. patient unable to get tested as he had no way to drive since was severely ill. no current symptoms for patient nor currenty. Hyperlipidemia Hypertension Insomnia Leukopenia Obstructive apnea "BORDERLINE" DOES NOT USE DEVICE Osteoarthritis of knee Surgical History Family history of reaction to anesthesia MOTHER-SEVERE PROLONGED CONFUSION H/O hand surgery LEFT History of colonoscopy History of esophagogastroduodenoscopy (EGD) History of total knee replacement Right [place] teeth removed Family History Father Heart disease Stroke Coronary heart disease Mother Stroke Grandfather (Maternal) Family history of diabetes mellitus Denies family history of Ovarian cancer Prostate cancer Myocardial infarction Breast cancer Colorectal cancer Lung disease Social History Smoking Status: Never smoker Second Hand Exposure: No; Hx Alcohol Use: Yes Alcohol type: beer Hx Substance Use: No Preferred Language: Arabic Communication Ability: Effective Visual Impairment: No Limitations Hearing Ability: Normal 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 and A total of 10 systems reviewed and were otherwise negative Physical Exam Vital Signs Vital Signs - 24 hr 09/04/20 16:21 Temperature 36.8 C Temperature Source Temporal Artery Scan Pulse Rate 88 Respiratory Rate 20 Respiratory Effort / Characteristics Non-Labored Respiratory Depth Normal Blood Pressure 143/80 H Blood Pressure Mean 101 Pulse Oximetry 98 Oxygen Delivery Method Room Air Sepsis Recent Fever Within 48 Hours No Sepsis New/Unexplained Change in Mental Status N/A Sepsis Action Taken by Nursing No Action Required Constitutional: Vital signs reviewed. Eyes: Pupils are equal round reactive to light. Conjunctiva are noninjected. ENT: Pharynx is clear without erythema or exudate. Mucous membranes are moist. Neck supple without meningeal signs. Respiratory: Clear to auscultation bilaterally. Breath sounds are equal bilaterally. Cardiovascular: Regular rate and rhythm. No rubs or gallops. GI: Soft, nondistended and nontender. Bowel sounds are present. Musculoskeletal: No peripheral edema. No increased warmth or erythema to the right lower extremity or knee. No joint tenderness. Integumentary: No cyanosis. or jaundice. Neurological: The patient is awake and alert. No focal deficits. Psychiatric: Depressed affect. Tearful at times. Medical Decision Making Differential Diagnosis Adjustment disorder, mood disorder, chronic pain syndrome, complex regional pain syndrome, metabolic derangement Medical Records Attestation: I reviewed the patient's medical records. I did perform a limited focused review of portions of the patient's old chart on the electronic medical record. The patient underwent total knee replacement in April of this year. Since then he has had chronic pain to his knee and was diagnosed with complex regional pain syndrome. He has been seen by pain management and he is to have a nerve block next week. He is on gabapentin as well as Ultram. He did have an ultrasound of his right leg which showed superficial thrombophlebitis in June. He is currently on Eliquis. He has had DVTs since he was young. Home Medications Current Medication List: was personally reviewed by me Laboratory Data Attestation: I reviewed the patient's lab results. Result diagrams: 09/04/20 17:10 09/04/20 17:10 Lab Results 09/04/20 09/04/20 09/04/20 Range/Units 17:10 17:10 17:10 WBC 5.31 (4.8-10.8) K/uL RBC 4.60 L (4.7-6.1) M/uL Hgb 14.1 (14.0-18.0) g/dL Hct 41.9 L (42-52) % MCV 91.1 (80-100) fL MCH 30.7 (25-34) pg MCHC 33.7 (32-36) g/dL RDW Std Deviation 52.2 H (36.4-46.3) fL RDW Coeff of Lacey 15.6 H (11.5-14.5) % Plt Count 181 (130-400) K/uL MPV 8.7 (7.4-10.4) fL Immature Gran % (Auto) 0.2 % Neut % (Auto) 64.2 % Lymph % (Auto) 22.4 % Collin % (Auto) 8.1 % Eos % (Auto) 4.9 % Baso % (Auto) 0.2 % Neut # (Auto) 3.41 (1.4-6.5) K/uL Lymph # (Auto) 1.19 L (1.2-3.4) K/uL Collin # (Auto) 0.43 (0.11-0.59) K/uL Eos # (Auto) 0.26 (0-0.5) K/uL Baso # (Auto) 0.01 (0-0.2) K/uL Immature Gran # (Auto) 0.01 (0.00-0.02) K/uL Sodium 138 (136-145) mmol/L Potassium 3.7 (3.5-5.1) mmol/L Chloride 105 (98-107) mmol/L Carbon Dioxide 29 (21-32) mmol/L Anion Gap 4.0 (3-11) BUN 15 (7-18) mg/dl Creatinine 1.02 (0.6-1.4) mg/dl Est Cr Clr Drug Dosing 95.9 ml/min Est GFR ( Amer) 92.2 ml/min Est GFR (Non-Af Amer) 79.5 ml/min BUN/Creatinine Ratio 14.7 (10-20) Glucose 106 H (70-99) mg/dl Calcium 9.2 (8.5-10.1) mg/dl Total Bilirubin 0.5 (0.2-1) mg/dl AST 19 (15-37) U/L ALT 31 (12-78) U/L Alkaline Phosphatase 73 (45-117) U/L Total Protein 7.9 (6.4-8.2) gm/dl Albumin 3.9 (3.4-5.0) gm/dl Globulin 4.0 (2.5-4.0) gm/dl Albumin/Globulin Ratio 1.0 (0.9-2) TSH 0.640 (0.300-4.500) uIu/ml Urine Color Urine Appearance (Clear) Urine pH (4.5-7.5) Ur Specific [place] (1.000-1.030) Urine Protein (Negative) Urine Glucose (UA) (Negative) Urine Ketones (Negative) Urine Blood (Negative) Urine Nitrite (Negative) Urine Bilirubin (Negative) Urine Urobilinogen (Negative) Ur Leukocyte Esterase (Negative) Salicylates < 1.7 L (2.8-20) mg/dl Urine Opiates Screen (Neg) Ur Methadone, Qual (Neg) Acetaminophen < 2 L (10-30) ug/ml Urine Barbiturates (Neg) Ur Phencyclidine (PCP) (Neg) U Amphetamin/Meth Scrn (Neg) MDMA (Ecstasy) Screen (Neg) U Benzodiazepines Scrn (Neg) Ur Cocaine Metabolite (Neg) U Marijuana (THC) Screen (Neg) Ethyl Alcohol mg/dL (0-3) mg/dl COVID-19 Eval Order SARS-CoV-2, RNA, NAAT (NEGATIVE) 09/04/20 09/04/20 09/04/20 Range/Units 17:10 17:20 17:20 WBC (4.8-10.8) K/uL RBC (4.7-6.1) M/uL Hgb (14.0-18.0) g/dL Hct (42-52) % MCV (80-100) fL MCH (25-34) pg MCHC (32-36) g/dL RDW Std Deviation (36.4-46.3) fL RDW Coeff of Lacey (11.5-14.5) % Plt Count (130-400) K/uL MPV (7.4-10.4) fL Immature Gran % (Auto) % Neut % (Auto) % Lymph % (Auto) % Collin % (Auto) % Eos % (Auto) % Baso % (Auto) % Neut # (Auto) (1.4-6.5) K/uL Lymph # (Auto) (1.2-3.4) K/uL [place]lin # (Auto) (0.11-0.59) K/uL Eos # (Auto) (0-0.5) K/uL Baso # (Auto) (0-0.2) K/uL Immature Gran # (Auto) (0.00-0.02) K/uL Sodium (136-145) mmol/L Potassium (3.5-5.1) mmol/L Chloride (98-107) mmol/L Carbon Dioxide (21-32) mmol/L Anion Gap (3-11) BUN (7-18) mg/dl Creatinine (0.6-1.4) mg/dl Est Cr Clr Drug Dosing ml/min Est GFR ( Amer) ml/min Est GFR (Non-Af Amer) ml/min BUN/Creatinine Ratio (10-20) Glucose (70-99) mg/dl Calcium (8.5-10.1) mg/dl Total Bilirubin (0.2-1) mg/dl AST (15-37) U/L ALT (12-78) U/L Alkaline Phosphatase (45-117) U/L Total Protein (6.4-8.2) gm/dl Albumin (3.4-5.0) gm/dl Globulin (2.5-4.0) gm/dl Albumin/Globulin Ratio (0.9-2) TSH (0.300-4.500) uIu/ml Urine Color Urine Appearance (Clear) Urine pH (4.5-7.5) Ur Specific [place] (1.000-1.030) Urine Protein (Negative) Urine Glucose (UA) (Negative) Urine Ketones (Negative) Urine Blood (Negative) Urine Nitrite (Negative) Urine Bilirubin (Negative) Urine Urobilinogen (Negative) Ur Leukocyte Esterase (Negative) Salicylates (2.8-20) mg/dl Urine Opiates Screen (Neg) Ur Methadone, Qual (Neg) Acetaminophen (10-30) ug/ml Urine Barbiturates (Neg) Ur Phencyclidine (PCP) (Neg) U Amphetamin/Meth Scrn (Neg) MDMA (Ecstasy) Screen (Neg) U Benzodiazepines Scrn (Neg) Ur Cocaine Metabolite (Neg) U Marijuana (THC) Screen (Neg) Ethyl Alcohol mg/dL < 3.0 (0-3) mg/dl COVID-19 Eval [email or web address] SARS-[facility]-2, RNA, NAAT NEGATIVE (NEGATIVE) 09/04/20 09/04/20 Range/Units 17:58 17:58 WBC (4.8-10.8) K/uL RBC (4.7-6.1) M/uL Hgb (14.0-18.0) g/dL Hct (42-52) % MCV (80-100) fL MCH (25-34) pg MCHC (32-36) g/dL RDW Std Deviation (36.4-46.3) fL RDW Coeff of Lacey (11.5-14.5) % Plt Count (130-400) K/uL MPV (7.4-10.4) fL Immature Gran % (Auto) % Neut % (Auto) % Lymph % (Auto) % [place] % (Auto) % Eos % (Auto) % Baso % (Auto) % Neut # (Auto) (1.4-6.5) K/uL Lymph # (Auto) (1.2-3.4) K/uL [place] # (Auto) (0.11-0.59) K/uL Eos # (Auto) (0-0.5) K/uL Baso # (Auto) (0-0.2) K/uL Immature Gran # (Auto) (0.00-0.02) K/uL Sodium (136-145) mmol/L Potassium (3.5-5.1) mmol/L Chloride (98-107) mmol/L Carbon Dioxide (21-32) mmol/L Anion Gap (3-11) BUN (7-18) mg/dl Creatinine (0.6-1.4) mg/dl Est Cr Clr Drug Dosing ml/min Est GFR ( Amer) ml/min Est GFR (Non-Af Amer) ml/min BUN/Creatinine Ratio (10-20) Glucose (70-99) mg/dl Calcium (8.5-10.1) mg/dl Total Bilirubin (0.2-1) mg/dl AST (15-37) U/L ALT (12-78) U/L Alkaline Phosphatase (45-117) U/L Total Protein (6.4-8.2) gm/dl Albumin (3.4-5.0) gm/dl Globulin (2.5-4.0) gm/dl Albumin/Globulin Ratio (0.9-2) TSH (0.300-4.500) uIu/ml Urine Color Yellow Urine Appearance Clear (Clear) Urine pH 5.0 (4.5-7.5) Ur Specific [place] 1.022 (1.000-1.030) Urine Protein Negative (Negative) Urine Glucose (UA) Negative (Negative) Urine Ketones Negative (Negative) Urine Blood Negative (Negative) Urine Nitrite Negative (Negative) Urine Bilirubin Negative (Negative) Urine Urobilinogen Negative (Negative) Ur Leukocyte Esterase Negative (Negative) Salicylates (2.8-20) mg/dl Urine Opiates Screen Neg (Neg) Ur Methadone, Qual Neg (Neg) Acetaminophen (10-30) ug/ml Urine Barbiturates Neg (Neg) Ur Phencyclidine (PCP) Neg (Neg) U Amphetamin/Meth Scrn Neg (Neg) MDMA (Ecstasy) Screen Neg (Neg) U Benzodiazepines Scrn Neg (Neg) Ur Cocaine Metabolite Neg (Neg) U Marijuana (THC) Screen Neg (Neg) Ethyl Alcohol mg/dL (0-3) mg/dl COVID-19 Eval Order SARS-CoV-2, RNA, NAAT (NEGATIVE) MDM Narrative I did evaluate the patient as noted above. He is presenting with worsening depression over the past several weeks due to chronic pain from complex regional pain syndrome. He is unable to sleep and is crying frequently. He had suicidal thoughts yesterday. He does wish to be admitted as an inpatient for psychiatric care. I did order a urine analysis. He does not have an infection. I did order and review the patient's blood work as noted in the electronic medical record. CBC does not demonstrate leukocytosis or anemia. Electrolytes are unremarkable. Talk screen is negative. Covid testing is negative. The patient was medically cleared. He was seen by the mental health continuous pillowcase cutter who referred him to [facility]. [facility] evaluated patient and admitted him to the behavioral unit under a 201. Impression & Plan Mood disorder, Suicidal ideation, Complex regional pain syndrome of knee Discharge Plan Visit Data Chief Complaint: Mental Health Evaluation Stated Complaint: SEVERE DEPRESSION,RIGHT LEG PAIN ED Provider: Aidan Yun Discharge Problem: Mood disorder, Suicidal ideation, Complex regional pain syndrome of knee Patient Disposition: Transfer Behavioral Health Fac Discharge Instructions Interventions: ED Discharge Assessment Last Done: 09/04/20 19:23
[2020-09-04 17:25] LABS: Basophils # (auto) 0.01 K/uL (0-0.2); Basophils % (auto) 0.2 %; Eosinophils # (auto) 0.26 K/uL (0-0.5); Eosinophils % (auto) 4.9 %; Hematocrit (blood only) 41.9 % (42-52); Hemoglobin 14.1 g/dL (14.0-18.0); Immature Granulocytes # (auto) 0.01 K/uL (0.00-0.02); Immature Granulocytes % (auto) 0.2 %; Lymphocytes # (auto) 1.19 K/uL (1.2-3.4); Lymphocytes % (auto) 22.4 %; Mean Corpuscular Hemoglobin 30.7 pg (25-34); Mean Corpuscular Hgb Conc 33.7 g/dL (32-36); Mean Corpuscular Volume 91.1 fL (80-100); Mean Platelet Volume 8.7 fL (7.4-10.4); Monocytes # (auto) 0.43 K/uL (0.11-0.59); Monocytes % (auto) 8.1 %; Neutrophils # (auto) 3.41 K/uL (1.4-6.5); Neutrophils % (auto) 64.2 %; Platelet Count 181 K/uL (130-400); RDW Coefficient of Variation 15.6 % (11.5-14.5); RDW Standard Deviation 52.2 fL (36.4-46.3); White Blood Count 5.31 K/uL (4.8-10.8)
[2020-09-04 17:44] LABS: Albumin Level 3.9 gm/dl (3.4-5.0); BUN Creatinine Ratio 14.7 (10-20); Calcium 9.2 mg/dl (8.5-10.1); Creatinine Clr Calc Pharmacy 95.9 ml/min; Est GFR (African American) 92.2 ml/min; Est GFR (Non-African American) 79.5 ml/min; Potassium 3.7 mmol/L (3.5-5.1)
[2020-09-04 17:53] LABS: Acetaminophen < 2 ug/ml (10-30); Salicylate < 1.7 mg/dl (2.8-20)
[2020-09-04 17:54] LABS: Bilirubin,Total 0.5 mg/dl (0.2-1); Thyroid Stimulating Hormone 0.64 uIu/ml (0.300-4.500); Total Protein 7.9 gm/dl (6.4-8.2)
[2020-09-04 18:04] LABS: Appearance Urine Clear (Clear); Bilirubin Urine Negative (Negative); Blood Urine Negative (Negative); Color Urine Yellow; Glucose Urine UA Negative (Negative); Ketones Urine Negative (Negative); Leukocyte Esterase Urine Negative (Negative); Nitrite Urine Negative (Negative); Protein Urine Negative (Negative); Specific Gravity Urine 1.022 (1.000-1.030); Urobilinogen Urine Negative (Negative)
[2020-09-04 18:30] LABS: Amphetamines+Metham, Urine Neg (Neg); Barbiturates, Urine Neg (Neg); Benzodiazepine, Urine Neg (Neg); Cocaine, Urine Neg (Neg); MDMA (Ecstacy), Urine Neg (Neg); Methadone, Urine Neg (Neg); Opiate, Urine Neg (Neg); Phencyclidine, Urine Neg (Neg)
[2020-09-04] MEDS ORDERED: hydrOXYzine HCl 25 MG TAB PO PRN (18:35)
[2020-09-04] MEDS ORDERED: SODIUM CHLORIDE 0.65% NA SOLN 45 ML (OCEAN) PRN (18:35)
[2020-09-04] MEDS ORDERED: ALUMINUM/MAGNESIUM SUSP 30 ML UDC PO PRN (18:35)
[2020-09-04] MEDS ORDERED: MAGNESIUM HYDROXIDE SUSP 30 ML UDC PO PRN (18:35)
[2020-09-04] MEDS: APIXABAN 5 MG TABLET PO SCH (21:52)
[2020-09-04] MEDS: ROSUVASTATIN CALCIUM 10 MG TAB PO SCH (21:53)
[2020-09-04] MEDS: ACETAMINOPHEN 500 MG TAB PO SCH (21:54)
[2020-09-04] MEDS: GABAPENTIN 600 MG TAB PO SCH (21:55)
[2020-09-04] MEDS: hydrOXYzine HCl 25 MG TAB PO PRN (21:55)
[2020-09-05] MEDS: hydrOXYzine HCl 25 MG TAB PO PRN (00:13)
[2020-09-05] MEDS: ACETAMINOPHEN 500 MG TAB PO SCH ×3 (05:46→21:56)
[2020-09-05] MEDS: APIXABAN 5 MG TABLET PO SCH ×2 (08:40→21:56)
[2020-09-05] MEDS: GABAPENTIN 600 MG TAB PO SCH ×3 (08:40→21:58)
[2020-09-05] MEDS: hydroCHLOROthiazide 25 MG TAB PO SCH (08:40)
[2020-09-05] MEDS: amLODIPine BESYLATE 5 MG TAB PO SCH (08:40)
[2020-09-05] MEDS ORDERED: LOSARTAN POTASSIUM 50 MG TAB PO SCH (09:00)
--- NOTE | 2020-09-05 13:18 | History & Physical ---
Date of Service September 05, 2020 Impression / Recommendations Impression 60 yo male with chronic pain and insomnia s/p knee surgery presenting with mood disorder syptoms due to his general medical condition. (1) Mood disorder due to a general medical condition: 09/05/20--The patient was admitted to the [facility] on q15 min checks (behavioral with suicide precautions) for safety. The patient will participate in group, recreational, and milieu therapies and will be offered additional individual and family sessions as clinically appropriate. Reviewed that multiple antidepressants increase risk of bleeding w benny Wells. He does not see himself as a depressed person at baseline and would prefer to address pain/sleep primarily. Risks/benefits/alternative treatments reviewed re: TCA. Confirmed with fundraising consultant hospitalist that no interaction. Will start amitryptiline 25 mg this hs with plan to titrate if needed. (2) Complex regional pain syndrome of knee: pain management clinic currently closed. confirmed with hospitalist that no acute intervention given scheduled for nerve block. Will need to hold Eliquis for 3 days prior to procedure. 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 Chief Complaint "I just can't get comfortable at night and it is messing with my head". History of Present Illness Patient relates no prior history of depression, has developed chronic insomnia related to pain following knee surgery 5 months ago. 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 He denies financial stressors as planned well and nearing care home but noticed decline in mood and concentration due to lack of sleep. He sleeps 1-3 hrs per night. He doesn't like that (who is on disability) has to do the yard chores and misses going fishing. His grandchildren visit and "I wasn't even able to smile". Otherwise notes a good support system and has realistic expectations for his nerve block procedure scheduled 09/09. His appetite has varied. He denies ongoing SI and states the thoughts about driving his car into an embankment were fleeting but "I recognized I needed help." Past Psychiatric History Previous Psych History: none Current Psychiatric Diagnosis: Depression NOS History of Previous Suicide Attempt: No Past Medication Trials: none Additional Notes: need to confirm access to weapons Allergies Allergy/AdvReac Type Severity Reaction Status Date / Time atorvastatin AdvReac Intermediate Severe Verified 09/04/20 17:44 myopathy after 4 days FRESH FRUIT Allergy Intermediate ITCHING Uncoded 09/04/20 17:44 LIPS Home Medications Medication Instructions Recorded Confirmed Type losartan 100 mg tablet 100 mg PO DAILY #90 tab 03/29/20 09/04/20 Rx amlodipine 5 mg tablet (Norvasc) 5 mg PO DAILY 04/13/20 09/04/20 History acetaminophen 500 mg tablet 1,000 mg PO Q8H tab 07/21/20 09/04/20 History (Tylenol Extra Strength) apixaban 5 mg tablet (Eliquis) 5 mg PO BID #180 tab 07/21/20 09/04/20 Rx hydrochlorothiazide 25 mg tablet 25 mg PO DAILY tab 07/21/20 09/04/20 History gabapentin 600 mg tablet 600 mg PO TID 09/04/20 09/04/20 History (Neurontin) rosuvastatin 10 mg tablet (Crestor) 10 mg PO HS 09/04/20 09/04/20 History Family History Family History of: Alcoholism/Drug Abuse and Bipolar Family Mental Health History Comment: Biological mother and father; reports parents were largely depressed and did require inpatient hospitalization, father also received ECT. Alcohol History Hx of Alcohol Use Over the Past 12 Months: Yes (Socially) AUDIT Total Score: 2 Smoking Use Have You Smoked or Used Tobacco Products in the Last 30 Days: No Smoking Status: Never smoker Substance History Hx of Prescription Med Misuse Over the Past 12 Months: No Hx of Over the Counter Med Misuse Over the Past 12 Months: No Hx of Inhalent Misuse Over the Past 12 Months: No Hx of Organic Substance Use Over the Past 12 Months: No Hx of Illegal Substances/Street Drug Use Over Past 12 Months: No Problems as a Result of Past Substance Use: None Identified Personal History Living Arrangements: Home Childhood: graduated from [employer] High Highest Grade Completed: College Highest Grade Completed Comment: Masters of Science 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 patient discharged on 04/14/20, tested positive 04/15/20 for covid-19 with severe cough, fever and fatigue. patient experienced same symptoms starting on 04/17/20. patient unable to get tested as he had no way to drive since was severely ill. no current symptoms for patient nor currenty. Hyperlipidemia Hypertension Insomnia Leukopenia Obstructive apnea "BORDERLINE" DOES NOT USE DEVICE Osteoarthritis of knee Surgical History Family history of reaction to anesthesia MOTHER-SEVERE PROLONGED CONFUSION H/O hand surgery LEFT History of colonoscopy History of esophagogastroduodenoscopy (EGD) History of total knee replacement Right [place] teeth removed Family History Father Heart disease Stroke Coronary heart disease Mother Stroke Grandfather (Maternal) Family history of diabetes mellitus Denies family history of Ovarian cancer Prostate cancer Myocardial infarction Breast cancer Colorectal cancer Lung disease Social History Smoking Status: Never smoker Second Hand Exposure: No; Hx Alcohol Use: Yes Alcohol type: beer Hx Substance Use: No Preferred Language: Slovak Communication Ability: Effective Visual Impairment: No Limitations Hearing Ability: Normal Awning Finisher Required: No Beliefs That Will Affect Care: None marital status: Current Living Situation: Spouse current occupational status: employed current occupation: [employer] Feels Safe at Home: Yes Childhood Exposure to Second-Hand Smoke: No caffeine: Yes Dental Care, Regularly: No Physical Activity Frequency: Daily Seatbelt Use: always Sunscreen Use: Yes Assistive Devices: Crutches Review of Systems Review of Systems: All systems reviewed & are unremarkable except as noted in HPI & below Physical Exam Psychiatric: Orientation: alert and oriented x 3 Apperance: appropriately dressed and appropriately groomed Eye Contact: good eye contact Motor Behavior: no abnormal motor movements Speech: normal rate/rhythm/volume of speech Affect: euthymic affect Mood: + depressed mood Thought Process: goal directed thought process Thought Content: reality based without delusions Suicidal Thoughts: denies suicidal thoughts Homicidal Thoughts: denies homicidal thoughts Hallucinations: no auditory hallucinations and no visual hallucinations Cognition: attention grossly intact and language grossly intact Estimated Intelligence: consistent with education level Judgement: + fair judgement Vital Signs (Past 24 Hours): Last Vital Signs Temp 36.5 C 09/05/20 07:00 Pulse 71 09/05/20 07:01 Resp 16 09/05/20 07:00 BP 143/90 H 09/05/20 07:01 Pulse Ox 100 09/04/20 20:56 Exam Statement: A physical exam was performed in the ED by Court for the purposes of medical clearance. I accept that physical as correct and adequate for the purposes of the inpatient physical exam. Results & Data ([facility]) Laboratory Results Laboratory Results - last 24 hr 09/04/20 09/04/20 09/04/20 17:10 17:10 17:10 WBC 5.31 RBC 4.60 L Hgb 14.1 Hct 41.9 L MCV 91.1 MCH 30.7 MCHC 33.7 RDW Std Deviation 52.2 H RDW Coeff of Lacey 15.6 H Plt Count 181 MPV 8.7 Immature Gran % (Auto) 0.2 Neut % (Auto) 64.2 Lymph % (Auto) 22.4 Gage % (Auto) 8.1 Eos % (Auto) 4.9 Baso % (Auto) 0.2 Neut # (Auto) 3.41 Lymph # (Auto) 1.19 L Gage # (Auto) 0.43 Eos # (Auto) 0.26 Baso # (Auto) 0.01 Immature Gran # (Auto) 0.01 Sodium 138 Potassium 3.7 Chloride 105 Carbon Dioxide 29 Anion Gap 4.0 BUN 15 Creatinine 1.02 Est Cr Clr Drug Dosing 95.9 Est GFR ( Amer) 92.2 Est GFR (Non-Af Amer) 79.5 BUN/Creatinine Ratio 14.7 Glucose 106 H Calcium 9.2 Total Bilirubin 0.5 AST 19 ALT 31 Alkaline Phosphatase 73 Total Protein 7.9 Albumin 3.9 Globulin 4.0 Albumin/Globulin Ratio 1.0 TSH 0.640 Urine Color Urine Appearance Urine pH Ur Specific Fabens Urine Protein Urine Glucose (UA) Urine Ketones Urine Blood Urine Nitrite Urine Bilirubin Urine Urobilinogen Ur Leukocyte Esterase Salicylates < 1.7 L Urine Opiates Screen Ur Methadone, Qual Acetaminophen < 2 L Urine Barbiturates Ur Phencyclidine (PCP) U Amphetamin/Meth Scrn MDMA (Ecstasy) Screen U Benzodiazepines Scrn Ur Cocaine Metabolite U Marijuana (THC) Screen Ethyl Alcohol mg/dL COVID-19 Eval Order SARS-CoV-2, RNA, NAAT 09/04/20 09/04/20 09/04/20 17:10 17:20 17:20 WBC RBC Hgb Hct MCV MCH MCHC RDW Std Deviation RDW Coeff of Lacey Plt Count MPV Immature Gran % (Auto) Neut % (Auto) Lymph % (Auto) Gage % (Auto) Eos % (Auto) Baso % (Auto) Neut # (Auto) Lymph # (Auto) Gage # (Auto) Eos # (Auto) Baso # (Auto) Immature Gran # (Auto) Sodium Potassium Chloride Carbon Dioxide Anion Gap BUN Creatinine Est Cr Clr Drug Dosing Est GFR ( Amer) Est GFR (Non-Af Amer) BUN/Creatinine Ratio Glucose Calcium Total Bilirubin AST ALT Alkaline Phosphatase Total Protein Albumin Globulin Albumin/Globulin Ratio TSH Urine Color Urine Appearance Urine pH Ur Specific Fabens Urine Protein Urine Glucose (UA) Urine Ketones Urine Blood Urine Nitrite Urine Bilirubin Urine Urobilinogen Ur Leukocyte Esterase Salicylates Urine Opiates Screen Ur Methadone, Qual Acetaminophen Urine Barbiturates Ur Phencyclidine (PCP) U Amphetamin/Meth Scrn MDMA (Ecstasy) Screen U Benzodiazepines Scrn Ur Cocaine Metabolite U Marijuana (THC) Screen Ethyl Alcohol mg/dL < 3.0 COVID-19 Eval [facility] SARS-CoV-2, RNA, NAAT NEGATIVE 09/04/20 09/04/20 17:58 17:58 WBC RBC Hgb Hct MCV MCH MCHC RDW Std Deviation RDW Coeff of Lacey Plt Count MPV Immature Gran % (Auto) Neut % (Auto) Lymph % (Auto) Gage % (Auto) Eos % (Auto) Baso % (Auto) Neut # (Auto) Lymph # (Auto) Gage # (Auto) Eos # (Auto) Baso # (Auto) Immature Gran # (Auto) Sodium Potassium Chloride Carbon Dioxide Anion Gap BUN Creatinine Est Cr Clr Drug Dosing Est GFR ( Amer) Est GFR (Non-Af Amer) BUN/Creatinine Ratio Glucose Calcium Total Bilirubin AST ALT Alkaline Phosphatase Total Protein Albumin Globulin Albumin/Globulin Ratio TSH Urine Color Yellow Urine Appearance Clear Urine pH 5.0 Ur Specific Fabens 1.022 Urine Protein Negative Urine Glucose (UA) Negative Urine Ketones Negative Urine Blood Negative Urine Nitrite Negative Urine Bilirubin Negative Urine Urobilinogen Negative Ur Leukocyte Esterase Negative Salicylates Urine Opiates Screen Neg Ur Methadone, Qual Neg Acetaminophen Urine Barbiturates Neg Ur Phencyclidine (PCP) Neg U Amphetamin/Meth Scrn Neg MDMA (Ecstasy) Screen Neg U Benzodiazepines Scrn Neg Ur Cocaine Metabolite Neg U Marijuana (THC) Screen Neg Ethyl Alcohol mg/dL COVID-19 Eval Order SARS-CoV-2, RNA, NAAT Current Inpatient Medications Current Inpatient Medications: Current Inpatient Medications Acetaminophen (Acetaminophen 500 Mg Tab) 1,000 mg PO Q8 MARBELLA Stop: 10/05/20 13:59 Al Hydrox/Mg Hydrox/Simethicone (Aluminum/Magnesium Susp 30 Ml Udc) 30 ml PO Q4H PRN PRN Reason: GI Upset Stop: 10/04/20 18:34 Amlodipine Besylate (Amlodipine Besylate 5 Mg Tab) 5 mg PO DAILY MARBELLA Stop: 10/05/20 08:59 Last Admin: 09/05/20 08:40 Dose: 5 mg Documented by: Apixaban (Apixaban 5 Mg Tablet) 5 mg PO BID MARBELLA Stop: 10/04/20 20:59 Last Admin: 09/05/20 08:40 Dose: 5 mg Documented by: Gabapentin (Gabapentin 600 Mg Tab) 600 mg PO TID MARBELLA Stop: 10/04/20 20:59 Last Admin: 09/05/20 08:40 Dose: 600 mg Documented by: Hydrochlorothiazide (Hydrochlorothiazide 25 Mg Tab) 25 mg PO DAILY MARBELLA Stop: 10/05/20 08:59 Last Admin: 09/05/20 08:40 Dose: 25 mg Documented by: Hydroxyzine HCl (Hydroxyzine Hcl 25 Mg Tab) 50 mg PO HSZ PRN PRN Reason: Insomnia Stop: 10/04/20 18:34 Last Admin: 09/05/20 00:13 Dose: 50 mg Documented by: Hydroxyzine HCl (Hydroxyzine Hcl 25 Mg Tab) 25 mg PO Q4H PRN PRN Reason: Anxiety Stop: 10/04/20 18:34 Losartan Potassium (Losartan Potassium 50 Mg Tab) 100 mg PO HS MARBELLA Stop: 10/05/20 21:59 Magnesium Hydroxide (Magnesium Hydroxide Susp 30 Ml Udc) 30 ml PO DAILY PRN PRN Reason: Constipation Stop: 10/04/20 18:34 Rosuvastatin Calcium (Rosuvastatin Calcium 10 Mg Tab) 10 mg PO HS MARBELLA Stop: 10/04/20 20:59 Last Admin: 09/04/20 21:53 Dose: 10 mg Documented by: Sodium Chloride (Sodium Chloride 0.65% Na Soln 45 Ml ([place])) 1 - 2 sprays NA PRN PRN PRN Reason: Nasal Dryness/Congestion Stop: 10/04/20 18:34
[2020-09-05] MEDS: ROSUVASTATIN CALCIUM 10 MG TAB PO SCH (21:56)
[2020-09-05] MEDS: LOSARTAN POTASSIUM 50 MG TAB PO SCH (21:59)
[2020-09-05] MEDS ORDERED: AMITRIPTYLINE HCL 25 MG TAB PO SCH (22:00)
[2020-09-06] MEDS: hydrOXYzine HCl 25 MG TAB PO PRN (02:59)
[2020-09-06] MEDS: ACETAMINOPHEN 500 MG TAB PO SCH ×3 (06:13→22:04)
--- NOTE | 2020-09-06 08:02 | Psychiatric Progress Note ---
Date of Service September 06, 2020 Impression / Recommendations Impression 60 yo male with chronic pain and insomnia s/p knee surgery presenting with mood disorder syptoms due to his general medical condition. (1) Mood disorder due to a general medical condition: 09/05/20--The patient was admitted to the [facility] ([facility] health unit) on q15 min checks (behavioral with suicide precautions) for safety. The patient will participate in group, recreational, and milieu therapies and will be offered additional individual and family sessions as clinically appropriate. Reviewed that multiple antidepressants increase risk of bleeding w benny Meiabhishek. He does not see himself as a depressed person at baseline and would prefer to address pain/sleep primarily. Risks/benefits/alternative treatments reviewed re: TCA. Confirmed with weapons electrical engineering officer hospitalist that no interaction. Will start amitryptiline 25 mg this hs with plan to titrate if needed. (2) Complex regional pain syndrome of knee: pain management clinic currently closed. confirmed with hospitalist that no acute intervention given scheduled for nerve block. Will need to hold Eliquis for 3 days prior to procedure. 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 Chief Complaint "[]". Review of Systems Sleep Information Total Hours of Sleep: 4.25 Sleep Comments: Pt had a better night of sleep compared to last. He was not up as much and was able to rest in bed for longer periods of time. Meal Information Percent Meal Consumed - Breakfast: 100 Percent Meal Consumed - Lunch: 100 Percent Meal Consumed - Dinner: 100 Subjective Subjective Patient was seen & assessed and interval progress reviewed with treatment team. Physical Exam Psychiatric Orientation: alert and oriented x 3 Apperance: appropriately dressed and appropriately groomed Eye Contact: good eye contact Motor Behavior: no abnormal motor movements Speech: normal rate/rhythm/volume of speech Affect: euthymic affect Mood: + depressed mood Thought Process: goal directed thought process Thought Content: reality based without delusions Suicidal Thoughts: denies suicidal thoughts Homicidal Thoughts: denies homicidal thoughts Hallucinations: no auditory hallucinations and no visual hallucinations Cognition: attention grossly intact and language grossly intact Estimated Intelligence: consistent with education level Judgement: + fair judgement Vital Signs (Past 24 Hours) Last Vital Signs Temp 36.4 C L 09/06/20 06:53 Pulse 84 08/02/21 06:53 Resp 18 09/06/20 06:53 BP 97/64 L 09/06/20 06:53 Pulse Ox 100 09/04/20 20:56 Results & Data ([facility]) Current Inpatient Medications Current Inpatient Medications: Current Inpatient Medications Acetaminophen (Acetaminophen 500 Mg Tab) 1,000 mg PO Q8 MARBELLA Stop: 10/05/20 13:59 Last Admin: 09/06/20 06:13 Dose: 1,000 mg Documented by: Al Hydrox/Mg Hydrox/Simethicone (Aluminum/Magnesium Susp 30 Ml Udc) 30 ml PO Q4H PRN PRN Reason: GI Upset Stop: 10/04/20 18:34 Amitriptyline HCl (Amitriptyline Hcl 25 Mg Tab) 25 mg PO HS MARBELLA Stop: 10/05/20 21:59 Last Admin: 09/05/20 21:59 Dose: 25 mg Documented by: Amlodipine Besylate (Amlodipine Besylate 5 Mg Tab) 5 mg PO DAILY MARBELLA Stop: 10/05/20 08:59 Last Admin: 09/05/20 08:40 Dose: 5 mg Documented by: Gabapentin (Gabapentin 600 Mg Tab) 600 mg PO TID MARBELLA Stop: 10/04/20 20:59 Last Admin: 09/05/20 21:58 Dose: 600 mg Documented by: Hydrochlorothiazide (Hydrochlorothiazide 25 Mg Tab) 25 mg PO DAILY MARBELLA Stop: 10/05/20 08:59 Last Admin: 09/05/20 08:40 Dose: 25 mg Documented by: Hydroxyzine HCl (Hydroxyzine Hcl 25 Mg Tab) 50 mg PO HSZ PRN PRN Reason: Insomnia Stop: 10/04/20 18:34 Last Admin: 09/06/20 02:59 Dose: 50 mg Documented by: Hydroxyzine HCl (Hydroxyzine Hcl 25 Mg Tab) 25 mg PO Q4H PRN PRN Reason: Anxiety Stop: 10/04/20 18:34 Losartan Potassium (Losartan Potassium 50 Mg Tab) 100 mg PO HS MARBELLA Stop: 10/05/20 21:59 Last Admin: 09/05/20 21:59 Dose: 100 mg Documented by: Magnesium Hydroxide (Magnesium Hydroxide Susp 30 Ml Udc) 30 ml PO DAILY PRN PRN Reason: Constipation Stop: 10/04/20 18:34 Rosuvastatin Calcium (Rosuvastatin Calcium 10 Mg Tab) 10 mg PO HS MARBELLA Stop: 10/04/20 20:59 Last Admin: 09/05/20 21:56 Dose: 10 mg Documented by: Sodium Chloride (Sodium Chloride 0.65% Na Soln 45 Ml ([place])) 1 - 2 sprays NA PRN PRN PRN Reason: Nasal Dryness/Congestion Stop: 10/04/20 18:34 Mental Health & Subst Abuse Tx Therapist Name of Therapist: None Dot Etcher Apprentice Name of Dot Etcher Apprentice: None Post Discharge Appointments Primary Care Physician Name Of Family Doctor: Dr. Ryne Spear Date of Appointment with PCP: 09/20/20
[2020-09-06] MEDS: hydroCHLOROthiazide 25 MG TAB PO SCH (09:11)
[2020-09-06] MEDS: amLODIPine BESYLATE 5 MG TAB PO SCH (09:11)
[2020-09-06] MEDS: GABAPENTIN 600 MG TAB PO SCH ×3 (09:11→21:55)
[2020-09-06] MEDS ORDERED: ZOLPIDEM TARTRATE 10 MG TAB PO PRN (10:24)
--- NOTE | 2020-09-06 12:32 | Psychiatric Progress Note ---
Date of Service September 06, 2020 Impression / Recommendations Impression 60 yo male with chronic pain and insomnia s/p knee surgery presenting with mood disorder syptoms due to his general medical condition. Impression--slight improvement (1) Mood disorder due to a general medical condition: 09/06/20--unclear if restlessness truly side effect of TCA, patient amenable to trying lower dose of 10 mg tonight in combo with Vistaril (some benefit for sedation) with plan for prn Ambien if nighttime awakening. 09/05/20--The patient was admitted to the [facility] ([facility]) on q15 min checks (behavioral with suicide precautions) for safety. The patient will participate in group, recreational, and milieu therapies and will be offered additional individual and family sessions as clinically appropriate. Reviewed that multiple antidepressants increase risk of bleeding with Eliquis. He does not see himself as a depressed person at baseline and would prefer to address pain/sleep primarily. Risks/benefits/alternative treatments reviewed re: TCA. Confirmed with personal shopper hospitalist that no interaction. Will start amitryptiline 25 mg this hs with plan to titrate if needed. (2) Complex regional pain syndrome of knee: 09/06/20--case reviewed with ZENOBIA Ferraro. Confirmed does not need COVID test for their in office procedure. 09/05/20--pain management clinic currently closed. confirmed with hospitalist that no acute intervention given scheduled for nerve block. Will need to hold Eliquis for 3 days prior to procedure. 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 Chief Complaint "My pain was great but I didn't like feeling restless/edgy". Review of Systems Sleep Information Total Hours of Sleep: 4.25 Sleep Comments: Pt had a better night of sleep compared to last. He was not up as much and was able to rest in bed for longer periods of time. Meal Information Percent Meal Consumed - Breakfast: 100 Percent Meal Consumed - Lunch: 100 Percent Meal Consumed - Dinner: 100 Subjective Subjective Patient was seen & assessed and interval progress reviewed with treatment team. Discrepancy between patient's report of sleep and staff. He reports TCA was immediately effective for pain in that he was able to ambulate well without crutch but within a few hours he felt like "I had too much prednisone". He reports chronic insomnia in past rather than episodic and denies periods of hypomania. He related memories of father buying a $50 shot gun with which father planned to commit suicide and "i'm nothing like that". Physical Exam Psychiatric Orientation: alert and oriented x 3 Apperance: appropriately dressed and appropriately groomed Eye Contact: good eye contact Motor Behavior: no abnormal motor movements Speech: normal rate/rhythm/volume of speech Affect: euthymic affect Mood: + depressed mood Thought Process: goal directed thought process Thought Content: reality based without delusions Suicidal Thoughts: denies suicidal thoughts Homicidal Thoughts: denies homicidal thoughts Hallucinations: no auditory hallucinations and no visual hallucinations Cognition: attention grossly intact and language grossly intact Estimated Intelligence: consistent with education level Judgement: + fair judgement Vital Signs (Past 24 Hours) Last Vital Signs Temp 36.4 C L 09/06/20 06:53 Pulse 82 09/06/20 09:11 Resp 18 09/06/20 06:53 BP 122/78 09/06/20 09:11 Pulse Ox 100 09/04/20 20:56 Results & Data ([facility]) Current Inpatient Medications Current Inpatient Medications: Current Inpatient Medications Acetaminophen (Acetaminophen 500 Mg Tab) 1,000 mg PO Q8 MARBELLA Stop: 10/05/20 13:59 Last Admin: 09/06/20 06:13 Dose: 1,000 mg Documented by: Al Hydrox/Mg Hydrox/Simethicone (Aluminum/Magnesium Susp 30 Ml Udc) 30 ml PO Q4H PRN PRN Reason: GI Upset Stop: 10/04/20 18:34 Amitriptyline HCl (Amitriptyline Hcl 10 Mg Tab) 10 mg PO HS MARBELLA Stop: 10/06/20 21:59 Amlodipine Besylate (Amlodipine Besylate 5 Mg Tab) 5 mg PO DAILY MARBELLA Stop: 10/05/20 08:59 Last Admin: 09/06/20 09:11 Dose: 5 mg Documented by: Gabapentin (Gabapentin 600 Mg Tab) 600 mg PO TID MARBELLA Stop: 10/04/20 20:59 Last Admin: 09/06/20 09:11 Dose: 600 mg Documented by: Hydrochlorothiazide (Hydrochlorothiazide 25 Mg Tab) 25 mg PO DAILY MARBELLA Stop: 10/05/20 08:59 Last Admin: 09/06/20 09:11 Dose: 25 mg Documented by: Hydroxyzine HCl (Hydroxyzine Hcl 25 Mg Tab) 25 mg PO Q4H PRN PRN Reason: Anxiety Stop: 10/04/20 18:34 Hydroxyzine HCl (Hydroxyzine Hcl 25 Mg Tab) 50 mg PO HSZ MARBELLA Stop: 10/06/20 21:59 Losartan Potassium (Losartan Potassium 50 Mg Tab) 100 mg PO HS MARBELLA Stop: 10/05/20 21:59 Last Admin: 09/05/20 21:59 Dose: 100 mg Documented by: Magnesium Hydroxide (Magnesium Hydroxide Susp 30 Ml Udc) 30 ml PO DAILY PRN PRN Reason: Constipation Stop: 10/04/20 18:34 Rosuvastatin Calcium (Rosuvastatin Calcium 10 Mg Tab) 10 mg PO HS MARBELLA Stop: 10/04/20 20:59 Last Admin: 09/05/20 21:56 Dose: 10 mg Documented by: Sodium Chloride (Sodium Chloride 0.65% Na Soln 45 Ml ([place])) 1 - 2 sprays NA PRN PRN PRN Reason: Nasal Dryness/Congestion Stop: 10/04/20 18:34 Zolpidem Tartrate (Zolpidem Tartrate 10 Mg Tab) 10 mg PO HS PRN PRN Reason: Sleep Stop: 10/06/20 10:23 Mental Health & Subst Abuse Tx Therapist Name of Therapist: None Clip Wrapper Name of Clip Wrapper: None Post Discharge Appointments Primary Care Physician Name Of Family Doctor: Dr. Ryne Spear Date of Appointment with PCP: 09/20/20
[2020-09-06] MEDS ORDERED: AMITRIPTYLINE HCL 10 MG TAB PO SCH (22:00)
[2020-09-06] MEDS: LOSARTAN POTASSIUM 50 MG TAB PO SCH (22:00)
[2020-09-06] MEDS: ROSUVASTATIN CALCIUM 10 MG TAB PO SCH (22:00)
[2020-09-06] MEDS ORDERED: hydrOXYzine HCl 25 MG TAB PO SCH (22:00)
[2020-09-07] MEDS: ACETAMINOPHEN 500 MG TAB PO SCH (05:55)
--- NOTE | 2020-09-07 08:06 | Psychiatric Progress Note ---
Date of Service September 07, 2020 Impression / Recommendations Impression 60 yo male with chronic pain and insomnia s/p knee surgery presenting with mood disorder syptoms due to his general medical condition. Impression--slight improvement (1) Mood disorder due to a general medical condition: 09/06/20--unclear if restlessness truly side effect of TCA, patient amenable to trying lower dose of 10 mg tonight in combo with Vistaril (some benefit for sedation) with plan for prn Ambien if nighttime awakening. 09/05/20--The patient was admitted to the [facility] ([facility]) on q15 min checks (behavioral with suicide precautions) for safety. The patient will participate in group, recreational, and milieu therapies and will be offered additional individual and family sessions as clinically appropriate. Reviewed that multiple antidepressants increase risk of bleeding with Eliquis. He does not see himself as a depressed person at baseline and would prefer to address pain/sleep primarily. Risks/benefits/alternative treatments reviewed re: TCA. Confirmed with adjuster piano action hospitalist that no interaction. Will start amitryptiline 25 mg this hs with plan to titrate if needed. (2) Complex regional pain syndrome of knee: 09/06/20--case reviewed with ZENOBIA Ferraro. Confirmed does not need COVID test for their in office procedure. 09/05/20--pain management clinic currently closed. confirmed with hospitalist that no acute intervention given scheduled for nerve block. Will need to hold Eliquis for 3 days prior to procedure. 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 Chief Complaint "[]". Review of Systems Sleep Information Total Hours of Sleep: 5 Sleep Comments: Pt had a better night of sleep compared to last. He was not up as much and was able to rest in bed for longer periods of time. Meal Information Percent Meal Consumed - Breakfast: 100 Percent Meal Consumed - Lunch: 100 Percent Meal Consumed - Dinner: 100 Subjective Subjective Patient was seen & assessed and interval progress reviewed with [treatment team] [nursing and social work] Physical Exam Psychiatric Orientation: alert and oriented x 3 Apperance: appropriately dressed and appropriately groomed Eye Contact: good eye contact Motor Behavior: no abnormal motor movements Speech: normal rate/rhythm/volume of speech Affect: euthymic affect Mood: + depressed mood Thought Process: goal directed thought process Thought Content: reality based without delusions Suicidal Thoughts: denies suicidal thoughts Homicidal Thoughts: denies homicidal thoughts Hallucinations: no auditory hallucinations and no visual hallucinations Cognition: attention grossly intact and language grossly intact Estimated Intelligence: consistent with education level Judgement: + fair judgement Vital Signs (Past 24 Hours) Last Vital Signs Temp 36.6 C 09/07/20 06:55 Pulse 78 09/07/20 06:55 Resp 16 09/07/20 06:55 BP 123/79 09/07/20 06:55 Pulse Ox 100 09/04/20 20:56 Results & Data ([facility]) Current Inpatient Medications Current Inpatient Medications: Current Inpatient Medications Acetaminophen (Acetaminophen 500 Mg Tab) 1,000 mg PO Q8 MARBELLA Stop: 10/05/20 13:59 Last Admin: 09/07/20 05:55 Dose: 1,000 mg Documented by: Al Hydrox/Mg Hydrox/Simethicone (Aluminum/Magnesium Susp 30 Ml Udc) 30 ml PO Q4H PRN PRN Reason: GI Upset Stop: 10/04/20 18:34 Amitriptyline HCl (Amitriptyline Hcl 10 Mg Tab) 10 mg PO HS MARBELLA Stop: 10/06/20 21:59 Last Admin: 09/06/20 21:55 Dose: 10 mg Documented by: Amlodipine Besylate (Amlodipine Besylate 5 Mg Tab) 5 mg PO DAILY MARBELLA Stop: 10/05/20 08:59 Last Admin: 09/06/20 09:11 Dose: 5 mg Documented by: Gabapentin (Gabapentin 600 Mg Tab) 600 mg PO TID MARBELLA Stop: 10/04/20 20:59 Last Admin: 09/06/20 21:55 Dose: 600 mg Documented by: Hydrochlorothiazide (Hydrochlorothiazide 25 Mg Tab) 25 mg PO DAILY MARBELLA Stop: 10/05/20 08:59 Last Admin: 09/06/20 09:11 Dose: 25 mg Documented by: Hydroxyzine HCl (Hydroxyzine Hcl 25 Mg Tab) 25 mg PO Q4H PRN PRN Reason: Anxiety Stop: 10/04/20 18:34 Hydroxyzine HCl (Hydroxyzine Hcl 25 Mg Tab) 50 mg PO HSZ MARBELLA Stop: 10/06/20 21:59 Last Admin: 09/06/20 21:54 Dose: 50 mg Documented by: Losartan Potassium (Losartan Potassium 50 Mg Tab) 100 mg PO HS MARBELLA Stop: 10/05/20 21:59 Last Admin: 09/06/20 22:00 Dose: 100 mg Documented by: Magnesium Hydroxide (Magnesium Hydroxide Susp 30 Ml Udc) 30 ml PO DAILY PRN PRN Reason: Constipation Stop: 10/04/20 18:34 Rosuvastatin Calcium (Rosuvastatin Calcium 10 Mg Tab) 10 mg PO HS MARBELLA Stop: 10/04/20 20:59 Last Admin: 09/06/20 22:00 Dose: 10 mg Documented by: Sodium Chloride (Sodium Chloride 0.65% Na Soln 45 Ml ([place])) 1 - 2 sprays NA PRN PRN PRN Reason: Nasal Dryness/Congestion Stop: 10/04/20 18:34 Zolpidem Tartrate (Zolpidem Tartrate 10 Mg Tab) 10 mg PO HS PRN PRN Reason: Sleep Stop: 10/06/20 10:23 Last Admin: 09/06/20 21:53 Dose: 10 mg Documented by: Mental Health & Subst Abuse Tx Therapist Name of Therapist: None Fire Management Officer Name of Fire Management Officer: None Post Discharge Appointments Primary Care Physician Name Of Family Doctor: Dr. Ryne Spear Date of Appointment with PCP: 09/20/20
[2020-09-07] MEDS: GABAPENTIN 600 MG TAB PO SCH (08:29)
[2020-09-07] MEDS: amLODIPine BESYLATE 5 MG TAB PO SCH (08:29)
[2020-09-07] MEDS: hydroCHLOROthiazide 25 MG TAB PO SCH (08:29)
--- NOTE | 2020-09-07 12:00 | Discharge Summary ---
Date of Service September 07, 2020 History of Present Illness as per admission H&P: Patient relates no prior history of depression, has developed chronic insomnia related to pain following knee surgery 5 months ago. 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 He denies financial stressors as planned well and nearing care home but noticed decline in mood and concentration due to lack of sleep. He sleeps 1-3 hrs per night. He doesn't like that (who is on disability) has to do the yard chores and misses going fishing. His grandchildren visit and "I wasn't even able to smile". Otherwise notes a good support system and has realistic expectations for his nerve block procedure scheduled 09/09. His appetite has varied. He denies ongoing SI and states the thoughts about driving his car into an embankment were fleeting but "I recognized I needed help." Physical Exam Vital Signs (Past 24 Hours) Last Vital Signs Temp 36.6 C 09/07/20 06:55 Pulse 78 09/07/20 06:55 Resp 16 09/07/20 06:55 BP 123/79 09/07/20 06:55 Pulse Ox 100 09/04/20 20:56 See admission H&P and DOD summary. Principal Diagnosis mood disorder secondary to general medical condition Psychiatric Data See daily stay summary. In short, safety was maintained and the patient was cooperative with care. Medication changes included trial of amitriptyline (patient felt 25 mg too activating but was effective for pain) and Ambien (worked better than Vistaril as prn for sleep) and they tolerated this well. A family session was held with who is very supportive and safety plan was completed prior to discharge. They both are aware/agree that he should not drive and weapons will be secure. Day of Discharge Assessment Today the patient voices readiness for discharge. They note improvement in mood and deny thoughts to harm self or others. Thoughts remain organized and they are improved from admission. There is no evidence of psychosis. They agree to take mediations as prescribed and keep follow-up appointments. They are stable for discharge to outpatient level of care. Advance Directives Advance Directives Information Provided: Yes Advance Directives: No Mental Health Advance Directive: No Advance Directives on File: No Living Will: No Power of Triage Technician: No Advance Directives Reason:: Declines as Mental Health Visit. 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) Total Time Total Time Spent: Greater Than 30 Minutes Total Time Includes: Examination of the patient, Discharge Planning, Medication Reconciliation and Communication with other providers Discharge Data Lab Results 09/04/20 09/04/20 09/04/20 17:10 17:10 17:10 WBC 5.31 RBC 4.60 L Hgb 14.1 Hct 41.9 L MCV 91.1 MCH 30.7 MCHC 33.7 RDW Std Deviation 52.2 H RDW Coeff of Lacey 15.6 H Plt Count 181 MPV 8.7 Immature Gran % (Auto) 0.2 Neut % (Auto) 64.2 Lymph % (Auto) 22.4 Rich % (Auto) 8.1 Eos % (Auto) 4.9 Baso % (Auto) 0.2 Neut # (Auto) 3.41 Lymph # (Auto) 1.19 L Rich # (Auto) 0.43 Eos # (Auto) 0.26 Baso # (Auto) 0.01 Immature Gran # (Auto) 0.01 Sodium 138 Potassium 3.7 Chloride 105 Carbon Dioxide 29 Anion Gap 4.0 BUN 15 Creatinine 1.02 Est Cr Clr Drug Dosing 95.9 Est GFR ( Amer) 92.2 Est GFR (Non-Af Amer) 79.5 BUN/Creatinine Ratio 14.7 Glucose 106 H Calcium 9.2 Total Bilirubin 0.5 AST 19 ALT 31 Alkaline Phosphatase 73 Total Protein 7.9 Albumin 3.9 Globulin 4.0 Albumin/Globulin Ratio 1.0 TSH 0.640 Urine Color Urine Appearance Urine pH Ur Specific [place] Urine Protein Urine Glucose (UA) Urine Ketones Urine Blood Urine Nitrite Urine Bilirubin Urine Urobilinogen Ur Leukocyte Esterase Salicylates < 1.7 L Urine Opiates Screen Ur Methadone, Qual Acetaminophen < 2 L Urine Barbiturates Ur Phencyclidine (PCP) U Amphetamin/Meth Scrn MDMA (Ecstasy) Screen U Benzodiazepines Scrn Ur Cocaine Metabolite U Marijuana (THC) Screen Ethyl Alcohol mg/dL COVID-19 Eval Order SARS-CoV-2, RNA, NAAT 09/04/20 09/04/20 09/04/20 17:10 17:20 17:20 WBC RBC Hgb Hct MCV MCH MCHC RDW Std Deviation RDW Coeff of [place] Plt Count MPV Immature Gran % (Auto) Neut % (Auto) Lymph % (Auto) Rich % (Auto) Eos % (Auto) Baso % (Auto) Neut # (Auto) Lymph # (Auto) Rich # (Auto) Eos # (Auto) Baso # (Auto) Immature Gran # (Auto) Sodium Potassium Chloride Carbon Dioxide Anion Gap BUN Creatinine Est Cr Clr Drug Dosing Est GFR ( Amer) Est GFR (Non-Af Amer) BUN/Creatinine Ratio Glucose Calcium Total Bilirubin AST ALT Alkaline Phosphatase Total Protein Albumin Globulin Albumin/Globulin Ratio TSH Urine Color Urine Appearance Urine pH Ur Specific [place] Urine Protein Urine Glucose (UA) Urine Ketones Urine Blood Urine Nitrite Urine Bilirubin Urine Urobilinogen Ur Leukocyte Esterase Salicylates Urine Opiates Screen Ur Methadone, Qual Acetaminophen Urine Barbiturates Ur Phencyclidine (PCP) U Amphetamin/Meth Scrn MDMA (Ecstasy) Screen U Benzodiazepines Scrn Ur Cocaine Metabolite U Marijuana (THC) Screen Ethyl Alcohol mg/dL < 3.0 COVID-19 Eval [facility] SARS-CoV-2, RNA, NAAT NEGATIVE 09/04/20 09/04/20 17:58 17:58 WBC RBC Hgb Hct MCV MCH MCHC RDW Std Deviation RDW Coeff of [place] Plt Count MPV Immature Gran % (Auto) Neut % (Auto) Lymph % (Auto) Rich % (Auto) Eos % (Auto) Baso % (Auto) Neut # (Auto) Lymph # (Auto) Rich # (Auto) Eos # (Auto) Baso # (Auto) Immature Gran # (Auto) Sodium Potassium Chloride Carbon Dioxide Anion Gap BUN Creatinine Est Cr Clr Drug Dosing Est GFR ( Amer) Est GFR (Non-Af Amer) BUN/Creatinine Ratio Glucose Calcium Total Bilirubin AST ALT Alkaline Phosphatase Total Protein Albumin Globulin Albumin/Globulin Ratio TSH Urine Color Yellow Urine Appearance Clear Urine pH 5.0 Ur Specific [place] 1.022 Urine Protein Negative Urine Glucose (UA) Negative Urine Ketones Negative Urine Blood Negative Urine Nitrite Negative Urine Bilirubin Negative Urine Urobilinogen Negative Ur Leukocyte Esterase Negative Salicylates Urine Opiates Screen Neg Ur Methadone, Qual Neg Acetaminophen Urine Barbiturates Neg Ur Phencyclidine (PCP) Neg U Amphetamin/Meth Scrn Neg MDMA (Ecstasy) Screen Neg U Benzodiazepines Scrn Neg Ur Cocaine Metabolite Neg U Marijuana (THC) Screen Neg Ethyl Alcohol mg/dL COVID-19 Eval Order SARS-CoV-2, RNA, NAAT Hospital Course (1) Mood disorder due to a general medical condition: 09/06/20--unclear if restlessness truly side effect of TCA, patient amenable to trying lower dose of 10 mg tonight in combo with Vistaril (some benefit for sedation) with plan for prn Ambien if nighttime awakening. 09/05/20--The patient was admitted to the [facility] ([facility]) on q15 min checks (behavioral with suicide precautions) for safety. The patient will participate in group, recreational, and milieu therapies and will be offered additional individual and family sessions as clinically appropriate. Reviewed that multiple antidepressants increase risk of bleeding with Eliquis. He does not see himself as a depressed person at baseline and would prefer to address pain/sleep primarily. Risks/benefits/alternative treatments reviewed re: TCA. Confirmed with cupola charger insulation hospitalist that no interaction. Will start amitryptiline 25 mg this hs with plan to titrate if needed. (2) Complex regional pain syndrome of knee: 09/06/20--case reviewed with ZENOBIA Ferraro. Confirmed does not need COVID test for their in office procedure. 09/05/20--pain management clinic currently closed. confirmed with hospitalist that no acute intervention given scheduled for nerve block. Will need to hold Eliquis for 3 days prior to procedure. Mental Health & Subst Abuse Tx Psychiatrist Name of Psychiatrist: [facility] Psychiatrist's Psychiatric Appointment Comment: Follow up for referral info at your appointment on . Psychiatrist Release of Information: Obtained, Reviewed and Signed Therapist Name of Therapist: [facility] Therapist's Therapy Appointment Comment: Follow up for referral info at your appointment on . Therapist Release of Information: Obtained, Reviewed and Signed Cook Chill Technician Name of Cook Chill Technician: None Post Discharge Appointments Primary Care Physician Name Of Family Doctor: Dr. Ryne Spear Primary Care Date of Appointment with PCP: 09/20/20 Provider Appointment Comment: [address] [place] [address] [place] [address] Primary Care Release of Information: Obtained, Reviewed and Signed Pain Clinic Name of Pain Clinic: [facility] Phone Number for Pain Clinic: [phone] Date of Appointment with Pain Clinic: 09/09/20 Pain Clinic Appointment Comment: [address] [place] [address] Pain Clinic Release of Information: Obtained, Reviewed and Signed Contact Information Discharge Discharge Address: [address] [place] [id number] Discharge Plan Discharge Items Patient Disposition: Home - Self-Care Reason For Visit: MAJOR DEPRESIVE ORDER Discharge Diagnosis: mood disorder related to general medical condition Activity: Resume your previous activity Activity Comment: with crutch as per ortho and pain clinic. Non-emergency contact: Primary Care Provider and Psychiatrist Call non-emergency contact if: you have any medication questions Follow-up/Referrals: Rogerio Spear MD [Primary Care Provider] - Diet: Regular Addtl Attending Provider Instructions: SPECIAL CARE INSTRUCTIONS: 1. Follow through with your scheduled aftercare appointments. If unable to keep an appointment, please call to reschedule. 2. Take your medication only as prescribed. Medication should not be changed or stopped without the approval of your doctor. In the event of worsening symptoms or concerns about side effects, contact your doctor immediately. 3. Utilize new healthy coping skills, anger management skills, and stress management skills learned during your hospitalization. Journal feelings and process them with a support person. Identify stressors or situations that may result in relapse, deterioration or inappropriate behaviors and develop a plan to deal with those issues. 4. If your coping skills are ineffective and you are in crisis, contact your outpatient providers for direction. If unable to reach your providers, please call the [facility] CRISIS LINE AT , go to the [facility] walk-in center at [address], [address], [place], or go to the closest Emergency Room. 5. Avoid alcohol and un-prescribed drugs. 6. You have been provided with the Mental Health Advance Directives Pamphlet for your review. AFTERCARE APPOINTMENTS: * Please call your insurance company prior to your scheduled appointment to confirm your aftercare providers are covered. Take your insurance information to your appointments. WHO TO CALL AND WHEN: Medical Emergencies: For questions or emergencies related to your hospital stay, please contact the Inpatient Behavioral Health Unit at [phone]. A chief clinical officer is on-call 28/08 for the Behavioral Health Unit for emergencies At any time you feel your situation is an emergency, you may also call 911 immediately. Addtl Bit Tripoler Provider Instructions: Your Eliquis is being held due to your scheduled nerve block procedure on 09/09/20. restart your Eliquis as per pain clinic instructions. be advised that your amitriptyline and Ambien may need adjusted/discontinued after the procedure and/or as Neurontin is adjusted as per pain clinic. Follow up as scheduled with [facility] primary care (Dr. Spear's clinic) within 2 weeks of hospital discharge as may be some wait to start therapy and psychiatry through pain clinic. You are advised not to drive until cleared to do so by a doctor. Do not drive or operate machinery after taking Ambien. Do not combine Ambien with other substances (alcohol). Ambien is for short term use pending your nerve block, see your PCP or pain clinic for additional instructions/rx of amitriptyline or Ambien until seen by Dr. Smalls (psychiatrist at pain clinic) secure weapons and ammo separately, ideally vigil stored outside of home while still experiencing depression Pending Studies at Discharge: No Stand-Alone Forms: [facility] Secret Sales, Smoking Cessation Medications and DC Order Prescriptions: New amitriptyline 10 mg Tablet 10 mg PO HS 14 Days Qty: 30 RF: 0 zolpidem [Ambien] 10 mg Tablet 10 mg PO HS 14 Days Qty: 14 RF: 0 Continued hydrochlorothiazide 25 mg tablet 25 mg PO DAILY RF: 0 losartan 100 mg tablet 100 mg PO DAILY Qty: 90 RF: 1 acetaminophen [Tylenol Extra Strength] 500 mg tablet 1,000 mg PO Q8H RF: 0 amlodipine [Norvasc] 5 mg tablet 5 mg PO DAILY RF: 0 gabapentin [Neurontin] 600 mg tablet 600 mg PO TID RF: 0 rosuvastatin [Crestor] 10 mg tablet 10 mg PO HS RF: 0 Discontinued Eliquis 5 mg tablet 5 mg PO BID Qty: 180 RF: 2 Discharge Orders: Discharge Order (Routine); Ordered 09/07/20 Ordered By: Sheila Quevedo Admission Data Admit Date/Time: 09/04/20 18:35 Attending Provider: Sheila Quevedo Admit Provider: Sheila Quevedo Primary Care Provider: Rogerio Spear Coding Level of Care Code 36488 D/C day mgmt > 30 min Diagnoses Mood disorder due to a general medical condition F06.30 Complex regional pain syndrome of knee
== END 2020-09-07 12:35 | disposition home or self-care (01) | DRG 885 ==
LOC: ED 16:12 → 3S 18:35

== ENCOUNTER 2024-05-21 14:10 | Inpatient (IN) ==
[2024-05-21 15:26] LABS: Basophils # (auto) 0.02 K/uL (0.00-0.20); Basophils % (auto) 0.2 %; Eosinophils # (auto) 0.02 K/uL (0.00-0.50); Eosinophils % (auto) 0.2 %; Hematocrit (blood only) 47.5 % (42.0-52.0); Hemoglobin 16.2 g/dl (14.0-18.0); Immature Granulocytes # (auto) 0.04 K/uL (0.01-0.20); Immature Granulocytes % (auto) 0.4 %; Lymphocytes # (auto) 0.64 K/uL (1.20-3.40); Lymphocytes % (auto) 7.2 %; Mean Corpuscular Hemoglobin 32.5 pg (25.0-34.0); Mean Corpuscular Hgb Conc 34.1 g/dL (32.0-36.0); Mean Corpuscular Volume 95.4 fL (80.0-100.0); Mean Platelet Volume 9.1 fL (9.4-12.4); Monocytes # (auto) 0.72 K/uL (0.11-0.59); Monocytes % (auto) 8.1 %; Neutrophils # (auto) 7.49 K/uL (1.40-6.50); Neutrophils % (auto) 83.9 %; Platelet Count 232 K/uL (130-400); RDW Coefficient of Variation 14.3 % (11.5-14.5); RDW Standard Deviation 50.1 fL (36.4-46.3); Red Blood Count 4.98 M/uL (4.70-6.10); White Blood Count 8.93 K/ul (4.8-10.8)
[2024-05-21 15:49] LABS: Base Excess VBG 0.5 mEq/L; HCO3 VBG 27 mmol/L; Oxygen Saturation VBG < 60.0 %; PCO2 VBG 50 mmHg (38-50); PO2 VBG 24 mmHg; pH VBG 7.34 (7.36-7.41)
[2024-05-21 15:52] LABS: Albumin Level 4.7 gm/dl (3.4-5.0); Bilirubin,Total 0.9 mg/dl (0.2-1.0); Calcium 9.6 mg/dl (8.6-10.3); Potassium 4.1 mmol/L (3.5-5.1)
--- NOTE | 2024-05-21 15:55 | CT Scan Report ---
CT head/brain wo con CLINICAL HISTORY: 63 years-old Male with weakness near syncope. Acute weakness with syncope TECHNIQUE: Multiple axial CT images of the head were obtained without contrast. A dose lowering tech nique was utilized adhering to the principles of ALARA. CT DOSE: 625.8 mGy.cm COMPARISON: Brain MRI 06/13/2020 FINDINGS: No acute intracranial hemorrhage, midline shift, intracranial mass, hydrocephalus, territorial ischem ia or abnormal extra-axial collection. Mild involutional changes. The calvarium is intact. The paranasal sinuses, mastoid air cells, and middle ear cavities are clear . IMPRESSION: No acute intracranial abnormality. ACT 112: Negative or not required by law. The above report was generated using voice recognition software. It may contain grammatical, syntax o r spelling errors. Electronically signed by: Taj Olivera M.D. 05/21/2024 3:54 PM
[2024-05-21 15:58] LABS: Albumin Globulin Ratio 1.6 (0.9-2); BUN Creatinine Ratio 11.3 (10-20); Creatinine Clr Calc Pharmacy 44.6 ml/min; Globulin 2.9 gm/dl (2.5-4.0); Total Protein 7.6 gm/dl (6.0-8.3)
[2024-05-21 16:04] LABS: Partial Thromboplastin Ratio 0.9; Partial Thromboplastin Time 25 Seconds (21-31); Prothrombin Time 10.9 Seconds (9.0-12.0)
--- NOTE | 2024-05-21 16:11 | XRay Report ---
Chest x-ray, 2 views History: chest pain Comparison: May 06, 2024 Technique: 2 views of the chest, PA and lateral Findings: The lungs are clear. The cardiomediastinal silhouette is within normal limits. No pleural effusion or pneumothorax. The heart size appears normal. No bony or soft tissue abnormality. Impression: Normal chest x-ray Electronically signed by Ryne Epperson 05-21-2024 4:11 PM
--- NOTE | 2024-05-21 17:13 | History & Physical Report ---
Date of Service May 21, 2024 Assessment & Plan (1) Exertional dyspnea: (2) Pre-syncope: (3) TAHMINA (acute kidney injury): Plan Patient is a 63-year-old male with past medical history of MARCIAL on CPAP, DVT on Eliquis, mood disorder, insomnia, suspected long COVID. Patient presented due to an episode of dyspnea, lightheadedness, chest tightness while he was on his boat in which he had to get off the boat and lay on the concrete. Patient endorses fatigue, and dyspnea on exertion, and orthopnea for several years however acutely worsened for the past few weeks. He is being admitted for exertional dyspnea/presyncope workup and treatment for a newfound TAHMINA. #Exertional dyspnea/fatigue/presyncope - troponin 7.0, CXR and head CT showed no acute changes, EKG showed NSR, BNP 5, electrolytes WNL. Patient has been worked up in the outpatient setting for long COVID, follows with cardiology. Stress echo 2021 WNL. Recent lipid panel and A1c 05/06 WNL, A1c 5.3%, see lipid panel below. - concern for PE given history, symptoms, hypotensive - will order Chest CTA - monitor renal function closely after IV contrast given below - Stress echocardiogram ordered - Lyme screen ordered, noted history of Lyme - CK ordered to workup rhabdomyolysis with shivering and muscle cramps on boat 05/21 - repeat Trop with a.m. labs #TAHMINA - Cr increased from 1.06 to 2.13, BUN elevated to 24 indicating pre-renal cause. Cause undetermined at time of admission, blood pressures have been on lower side, possibly renal hypoperfusion. - UA, urine sodium, urine creatinine ordered - post void bladder scan ordered - LR @ 125 ml/hr - promote oral hydration - Eliquis is renally dosed at baseline for DVT prophylaxis - trend BMP #HLD - lipid panel 05/06 relatively WNL, TG 226, T cholesterol 198, LDL 107, HDL 46 - reports holding stain currently as suspected to cause fatigue, continue to hold - continue baby aspirin #HTN - BP 95/64 on arrival to ED, improved to 141/70 at time of admission - Continue losartan #MARCIAL - CPAP at bedtime ordered #History of DVT - patient reports has been compliant on Eliquis no recurrence of DVT since starting approximately 6 years ago. Denies history of worsening leg swelling, calf cramps, or recent sedentary changes. - Continue Eliquis #Mood disorder/ insomnia/complex regional pain syndrome - medical marijuana at home - continue Cymbalta VTE ppx: SCDs and continue home Eliquis Dispo: med/tele Admission and Anticipated Discharge Date Admission Date: 05/21/24 History of Present Illness Chief Complaint: dyspnea Primary Care Provider: Ryne Spear MD Patient is a 63-year-old male with past medical history of MARCIAL on CPAP, DVT on Eliquis, mood disorder, insomnia, suspected long COVID. Patient presented due to an episode of dyspnea, lightheadedness, chest tightness while he was on his boat in which he had to get off the boat and lay on the concrete. Patient endorses fatigue, and dyspnea on exertion, and orthopnea for several years however acutely worsened for the past few weeks. He is being admitted for chest pain workup as he was to have a stress echocardiogram next week and treatment for a newfound TAHMINA. Patient seen at bedside with his present. He stated he was on his boat this afternoon when he developed shortness of breath and lightheadedness. He started to realign his fishing line and really struggled to do so without any fish on it. Last summer he was able to realign fish over 20 pounds without difficulty. The episode then progressed and he had severe dyspnea and lightheadedness along with chest tightness on the front and back of his chest. He leaned on the concrete to try to help with this because he felt like he was in a pass out. Patient stated that today while on the boat he was very cold and shivering and had some muscle cramps. He stated that he has had fatigue since 2020 and his toxics program officer is working him up for long COVID, however his fatigue and dyspnea on exertion have been worse over the past few weeks. He also e ndorses dyspnea in the shower and when laying down. 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 Regarding his history of DVT, he stated he did fail Coumadin however has been compliant with his Eliquis and has not had a DVT since being started on it approximately 6 years ago. He has chronic bilateral lower extremity swelling and cyanosis that is unchanged. He denies any calf pain. He denies any recent long trips or sedentary lifestyle changes. He denies any flulike symptoms, nausea, vomiting, diarrhea. He is very well-hydrated. He denies any urinary symptoms however does state his urine is orange in color. He denies any nicotine use. He stated he has approximately one half of a bottle of vodka over the course of 2 weeks, he typically drinks on the weekends however not daily. He does use medical marijuana and uses approximately 3 times per week. Regarding his past medical history, he has never had a history of NM however did have an abnormal EKG several years ago but had a stress echocardiogram that was normal. He does have a significant family history of cardiac problems including his siblings have heart stents and his father had a triple bypass surgery. His mother did have a history of stroke. Patient denies any past history of DM. He took his home medications this morning but will be due for evening medications. He wishes to be full code. Patient recently saw his toxics program officer who found him to have vitamin D deficiency and started him on vitamin D and is currently holding his rosuvastatin thought to be contributing to his fatigue. Otherwise he has had no recent medication changes. His toxics program officer ordered for him to have a stress echocardiogram next week, will order at this time. Allergies Allergy/AdvReac Type Severity Reaction Status Date / Time apple Allergy Severe Anaphylaxis Verified 05/21/24 16:32 atorvastatin AdvReac Intermediate Severe Verified 05/21/24 16:32 myopathy after 4 days FRESH FRUIT Allergy Intermediate ITCHING Uncoded 05/21/24 16:32 LIPS Home Medications Medication Instructions Recorded Confirmed Type acetaminophen 500 mg tablet 1,000 mg PO Q8H PRN pain 10/01/20 05/21/24 History (Tylenol Extra Strength) medical marijuana card 1 dose PO DAILY PRN Pain (Scale 09/26/21 05/21/24 History Score 7-10) Auto Titrating CPAP #1 ea 02/21/23 05/07/24 Rx aspirin 81 mg tablet,delayed 81 mg PO QPM 03/06/23 05/21/24 History release duloxetine 30 mg capsule,delayed 30 mg PO QAM 03/06/23 05/21/24 History release duloxetine 60 mg capsule,delayed 60 mg PO HS 03/06/23 05/21/24 History release (Cymbalta) losartan 100 mg tablet 100 mg PO QPM #90 tabs 06/25/23 05/21/24 Rx apixaban 2.5 mg tablet (Eliquis) 2.5 mg PO BID #180 tabs 02/29/24 05/21/24 Rx ergocalciferol (vitamin D2) 1,250 50,000 unit PO WEEKLY #8 caps 05/06/24 05/21/24 Rx mcg (50,000 unit) capsule rosuvastatin 10 mg tablet (Crestor) 10 mg PO HS #90 tabs 05/19/24 05/21/24 Rx Past Med/Surg History Problem List (Updated 05/21/24 @ 18:15 by Susu Dorantes PA-C) TAHMINA (acute kidney injury) Pre-syncope Exertional dyspnea Sleep apnea pt to picker feeder machine 03/06/23 to begin use Obesity, class 2 History of colon polyps benign Sleep apnea Actinic keratosis 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 Chronic anticoagulation History of total knee replacement Right Gastroesophageal reflux disease Hyperlipidemia Hypertension Insomnia Medical History Sleep apnea Suicidal ideation History of COVID-19 Environmental and seasonal allergies Osteoarthritis of knee Lyme disease Surgical History S/P surgical manipulation of knee joint Family history of reaction to anesthesia History of esophagogastroduodenoscopy (EGD) History of colonoscopy [place] teeth removed H/O hand surgery Family History (Updated 05/06/24 @ 09:08 by Ryne Spear MD) Father Heart disease Stroke Coronary heart disease Mother Stroke Grandfather (Maternal) Family history of diabetes mellitus Brother No problems noted. Brother Coronary heart disease Hypertension Denies family history of Ovarian cancer Prostate cancer Myocardial infarction Breast cancer Colorectal cancer Lung disease Social History (Updated 05/06/24 @ 09:09 by Ryne Spear MD) Smoking Status: Never smoker Second Hand Exposure: No; Do You Dip or Chew Tobacco: No; Hx Alcohol Use: Yes Alcohol type: beer Alcohol Intake Frequency Comment: Mostly weekend use help-amount varies Hx Substance Use: Yes (medical thc) Prescribed Medications: Marijuana Last Used Substance Other:: 03/05/23 Preferred Language: French Communication Ability: Effective Visual Impairment: No Limitations Hearing Ability: Normal 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 Feels Safe at Home: Yes Childhood Exposure to Second-Hand Smoke: No Diet: regular caffeine: Yes Dental Care, Regularly: No Physical Activity Frequency: Daily Seatbelt Use: always Sunscreen Use: Yes Assistive Devices: CPAP Review of Systems Review of Systems: See HPI Physical Exam Physical Exam: The patient is awake, alert and oriented 3, well developed and well nourished, normocephalic and atraumatic, in no acute distress. Non-toxic appearing. HEENT- EOMI, mucous membranes moist. Hearing grossly intact. Heart-normal S1 and S2. No murmurs, rubs or gallops. Lungs-clear bilaterally, no respiratory distress, no accessory muscle use. Abdomen-normal bowel sounds and soft. No ascites noted. Non-tender. Extremities- no clubbing, cyanosis, or edema. Rheumatologic-normal range of motion. Psychiatric-normal affect. Results & Data Results & Data Vital Signs (Past 12 Hours) Vital Signs Temp Pulse Pulse Resp BP BP Pulse Ox 05/21/24 17:00 60 24 115/83 95 05/21/24 15:44 75 05/21/24 15:26 05/21/24 15:26 75 15 98 05/21/24 15:26 80 13 108/79 99 05/21/24 15:26 100 05/21/24 14:35 36.6 C 106 H 22 95/64 L 100 O2 Del Method 05/21/24 17:00 Room Air 05/21/24 15:44 05/21/24 15:26 Room Air 05/21/24 15:26 Room Air 05/21/24 15:26 Room Air 05/21/24 15:26 Room Air 05/21/24 14:35 Room Air Laboratory Results reviewed CBC, PT/INR, VBG, troponin, magnesium, BNP Diagnostic Findings reviewed head CT and CXR Medications Administered EDpage hospitale AdmissionLR at 125 mL/hour ECG Additional Comments: Sinus rhythm with fusion complexes and occasional PAC Rate 83 QTc 420 Code Status & VTE Plan Code Status full code VTE Prophylaxis Plan VTE Prophylaxis will be ordered: Yes Supervising Physician Co-Signing Physician Notes Patient was seen and examined independently I discussed the case with Susu Dorantes PAC I reviewed pertinent past medical social family history and also the plan of care and agree with the plan of care. Patient presents with severe dyspnea on exertion somewhat so that he had a lay down [place] Patient had some chills but has not had any defined chest pain. Patient had no recent infectious symptoms. Patient feels this has been progressively worsening since he was diagnosed with a COVID infection in the 2019- range. Patient had multiple outpatient testing which has been unrevealing. Patient says he feels so distantly he does not believe he can complete a treadmill stress test. Patient had multiple superficial venous thromboembolism's and has been on prophylactic Eliquis therapy. Patient is examination is unremarkable for signs of myasthenia such as fatigability of rapid repetitive eye blinking, shoulder girdle or hip girdle weakness, a pending urine analysis to look for other signs of inflammatory disease. No jaw claudication consistent with vasculitis had initial cardiac evaluation unrevealing for acute coronary syndrome Physical exam shows his vitals to be stable, physical exam shows him to have a cardiac exam that is regular without rubs or murmurs lungs are clear with good excursion abdomen normal bowel sounds extremities with trace edema if any neurologically with no focal deficits Assessment unexplained exertional dyspnea. Pending CT angiogram and dobutamine stress test or will be performed after trending troponins. A morning cortisol level will be checked patient had a TSH of the beginning of May and is currently low with vitamin D being 9.3 Any exceptions will be noted below PG Care Time/CCT Total # of Minutes Spent Total Time Spent with Patient: Total time spent is greater than 50% in coordination of care (as documented) at patient's floor/unit and/or counseling patient: Coding Level of Care Code 30868 INT INP/OBS CARE 3/75MIN Diagnoses Exertional dyspnea R06.09 Pre-syncope R55 TAHMINA (acute kidney injury) N17.9
[2024-05-21] MEDS: OPTIRAY 320 125ml IV ONE (18:06)
[2024-05-21] MEDS: LACTATED RINGER'S 1,000 ML IV SCH (18:23)
--- NOTE | 2024-05-21 18:34 | Electrocardiogram Report ---
Test Reason : Blood Pressure : */* mmHG Vent. Rate : 83 BPM Atrial Rate : 83 BPM P-R Int : 192 ms QRS Dur : 76 ms QT Int : 358 ms P-R-T Axes : 17 58 63 degrees QTcB Int : 420 ms Sinus rhythm with rate-related aberrancy Abnormal ECG When compared with ECG of 13-Jun-2020 03:22, Aberrant conduction is now Present NM interval has decreased Nonspecific T wave abnormality no longer evident in Inferior leads Confirmed by Ryne Adams ([id number]) on 05/21/2024 6:34:12 PM Referred By: Confirmed By: Ryne Adams
--- NOTE | 2024-05-21 18:51 | CT Scan Report ---
EXAMINATION: CT angio chest PE protocol CLINICAL HISTORY: Lightheaded, short of breath PRIORS: Chest radiograph today TECHNIQUE: Contiguous axial images were obtained through the chest with the use of intravenous contrast. Sagittal and coronal reformations are supplied. FINDINGS: The pulmonary arteries are well opacified and normal in size. No central or peripheral pulmonary embolism. Heart size within normal limits. No mediastinal, hilar, axillary or subpectoral adenopathy. Trachea and mainstem bronchi patent. Thyroid normal in size. Note pleural or pericardial effusion. No dominant pulmonary nodule, mass or airspace consolidation. Aorta is normal caliber. No intimal flap. Mild to moderate calcified atherosclerotic plaque of the aorta and coronary arteries, left anterior descending. Limited visualization of the upper abdomen shows no acute abnormality. Small hiatal hernia noted. Allowing for protocol, no acute osseous abnormality. IMPRESSION: 1. No CT evidence of an acute pulmonary embolism or cardiopulmonary process. 2. Mild to moderate calcified atherosclerotic plaque involving the aorta and coronary arteries. ACT 112: Positive. There are findings on this examination that require communication between the performing entity and the patient following Patient Test Result Information Act ([place] ACT 112) guidelines. Electronically signed by Loreta Pete 05-21-2024 6:51 PM
[2024-05-21 18:57] LABS: Lyme Screen Rflx Confirmation Positive (Negative)
[2024-05-21 19:31] LABS: Lyme Ab IgG 2nd Tier Confirm Negative (Negative)
[2024-05-21 19:32] LABS: Lyme Ab IgM 2nd Tier Confirm Negative (Negative)
[2024-05-21 20:00] LABS: Appearance Urine Clear (Clear); Bacteria Urine Automated None Seen (None Seen); Bilirubin Urine Negative (Negative); Blood Urine Negative (Negative); Color Urine Yellow; Glucose Urine UA Negative (Negative); Hyaline Casts Urine Present /lpf (None Presnt); Ketones Urine Negative (Negative); Leukocyte Esterase Urine Negative (Negative); Nitrite Urine Negative (Negative); Protein Urine Trace (Negative); RBC Urine Automated 0-2 /hpf (0-2); Specific Gravity Urine 1.021 (1.000-1.030); Sperm Urine Present (None Prsent); Urobilinogen Urine Negative (Negative); WBC Urine Automated 0-5 /hpf (0-5)
[2024-05-21] MEDS ORDERED: ACETAMINOPHEN 325 MG TAB PO PRN (20:31)
[2024-05-21] MEDS ORDERED: ONDANSETRON INJ 2 MG/ML 2 ML VIAL IV PRN (20:31)
[2024-05-21] MEDS ORDERED: DOCUSATE SODIUM 100 MG CAP PO PRN (20:31)
[2024-05-21] MEDS ORDERED: MELATONIN 3 MG TAB PO PRN (20:31)
[2024-05-21] MEDS: DULoxetine HCL 60 MG CAP PO SCH (21:54)
[2024-05-21] MEDS: APIXABAN 2.5 MG TAB PO SCH (21:54)
[2024-05-21] MEDS: ASPIRIN 81 MG ECTAB PO SCH (21:55)
[2024-05-21] MEDS: LOSARTAN POTASSIUM 50 MG TAB PO SCH (21:55)
--- NOTE | 2024-05-21 23:17 | Emergency Department Note ---
History of Present Illness General Chief complaint: Shortness of Breath/Dyspnea Stated complaint: LIGHTHEADED, FATIGUE, SOB Time Seen by Provider: 05/21/24 15:12 History of Present Illness Provider complaint: Lightheaded shortness of breath 63-year-old male presents emergency department for lightheadedness and shortness of breath. Patient states earlier today he was out fishing when he suddenly became lightheaded around 0900. He states he send became short of breath. Patient also reports chest discomfort at this time. Patient states he tried to walk back to his car and after walking a few feet he had to lie down on the ground because he was so winded and having so much chest discomfort. Patient states he got back up to try to get back to his car and had to lie down again and then was brought to the hospital. No cough. No fever. No hematuria or dysuria. Chest discomfort radiated to the patient's neck. Home Medications Medication Instructions Recorded Confirmed Type acetaminophen 500 mg tablet 1,000 mg PO Q8H PRN pain 10/01/20 05/21/24 History (Tylenol Extra Strength) medical marijuana card 1 dose PO DAILY PRN Pain (Scale 09/26/21 05/21/24 History Score 7-10) Auto Titrating CPAP #1 ea 02/21/23 05/07/24 Rx aspirin 81 mg tablet,delayed 81 mg PO QPM 03/06/23 05/21/24 History release duloxetine 30 mg capsule,delayed 30 mg PO QAM 03/06/23 05/21/24 History release duloxetine 60 mg capsule,delayed 60 mg PO HS 03/06/23 05/21/24 History release (Cymbalta) losartan 100 mg tablet 100 mg PO QPM #90 tabs 06/25/23 05/21/24 Rx apixaban 2.5 mg tablet (Eliquis) 2.5 mg PO BID #180 tabs 02/29/24 05/21/24 Rx ergocalciferol (vitamin D2) 1,250 50,000 unit PO WEEKLY #8 caps 05/06/24 05/21/24 Rx mcg (50,000 unit) capsule rosuvastatin 10 mg tablet (Crestor) 10 mg PO HS #90 tabs 05/19/24 05/21/24 Rx Allergies Allergy/AdvReac Type Severity Reaction Status Date / Time apple Allergy Severe Anaphylaxis Verified 05/21/24 16:32 atorvastatin AdvReac Intermediate Severe Verified 05/21/24 16:32 myopathy after 4 days FRESH FRUIT Allergy Intermediate ITCHING Uncoded 05/21/24 16:32 LIPS Past Med/Surg History Problem List (Updated 05/21/24 @ 23:16 by Ramo Mcgraw MD) Chest pain (Acute) TAHMINA (acute kidney injury) (Acute) Pre-syncope Exertional dyspnea (Acute) Sleep apnea pt to olive picker machine 03/06/23 to begin use Obesity, class 2 History of colon polyps benign Sleep apnea Actinic keratosis 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 Chronic anticoagulation History of total knee replacement Right Gastroesophageal reflux disease Hyperlipidemia Hypertension Insomnia Medical History Suicidal ideation hx, treated at [facility] emergency room s/p knee surgery and several post op complications. History of COVID-19 04/2020 for covid-19 with severe cough, fever and fatigue. no current symptoms. Environmental and seasonal allergies Osteoarthritis of knee Lyme disease hx ~2013 last episode. Surgical History S/P surgical manipulation of knee joint right Family history of reaction to anesthesia mother -> severe prolonged confusion History of esophagogastroduodenoscopy (EGD) History of colonoscopy [place] teeth removed H/O hand surgery left Family History Father Heart disease Stroke Coronary heart disease Mother Stroke Grandfather (Maternal) Family history of diabetes mellitus Brother No problems noted. Brother Coronary heart disease Hypertension Denies family history of Ovarian cancer Prostate cancer Myocardial infarction Breast cancer Colorectal cancer Lung disease Social History Smoking Status: Never smoker Second Hand Exposure: No; Do You Dip or Chew Tobacco: No; Hx Alcohol Use: Yes Alcohol type: beer and hard liquor Alcohol Intake Frequency Comment: Mostly weekend use help-amount varies Hx Substance Use: Yes Prescribed Medications: Marijuana Last Used Substance: Days (ago) Last Used Substance Other:: 03/05/23 Preferred Language: Mohawk Communication Ability: Effective Visual Impairment: No Limitations Hearing Ability: Normal Turnaround Engineer Required: No Beliefs That Will Affect Care: None marital status: Current Living Situation: Spouse current occupational status: disabled current occupation: Disability started in 2020. Feels Safe at Home: Yes Childhood Exposure to Second-Hand Smoke: No Diet: regular caffeine: Yes Dental Care, Regularly: No Physical Activity Frequency: Daily Seatbelt Use: always Sunscreen Use: Yes Assistive Devices: None Physical Exam Vital Signs Vital Signs - 24 hr 05/21/24 14:35 05/21/24 15:26 05/21/24 15:26 Temperature 36.6 C Temperature Source Temporal Artery Scan Pulse Rate 106 H Pulse Rate [Apical] 80 Respiratory Rate 22 13 Respiratory Effort / Characteristics Non-Labored Spontaneous Non-Labored Spontaneous Respiratory Depth Normal Normal Respiratory Pattern Regular Regular Blood Pressure 95/64 L Blood Pressure [Left Arm] 108/79 Blood Pressure Mean 74 Blood Pressure Mean [Left Arm] 88 Blood Pressure Position Sitting Blood Pressure Position [Left Arm] Semi-fowlers Pulse Oximetry 100 100 99 Oxygen Delivery Method Room Air Room Air Room Air Sepsis Recent Fever Within 48 Hours No Sepsis New/Unexplained Change in Mental Status N/A Sepsis Action Taken by Nursing No Action Required 05/21/24 15:26 05/21/24 15:26 05/21/24 15:44 Temperature Temperature Source Pulse Rate 75 75 Pulse Rate [Apical] Respiratory Rate 15 Respiratory Effort / Characteristics Non-Labored Spontaneous Respiratory Depth Normal Respiratory Pattern Regular Blood Pressure Blood Pressure [Left Arm] Blood Pressure Mean Blood Pressure Mean [Left Arm] Blood Pressure Position Blood Pressure Position [Left Arm] Pulse Oximetry 98 Oxygen Delivery Method Room Air Room Air Sepsis Recent Fever Within 48 Hours Sepsis New/Unexplained Change in Mental Status Sepsis Action Taken by Nursing 05/21/24 17:00 Temperature Temperature Source Pulse Rate Pulse Rate [Apical] 60 Respiratory Rate 24 Respiratory Effort / Characteristics Respiratory Depth Respiratory Pattern Blood Pressure Blood Pressure [Left Arm] 115/83 Blood Pressure Mean Blood Pressure Mean [Left Arm] 93 Blood Pressure Position Blood Pressure Position [Left Arm] Pulse Oximetry 95 Oxygen Delivery Method Room Air Sepsis Recent Fever Within 48 Hours Sepsis New/Unexplained Change in Mental Status Sepsis Action Taken by Nursing Physical Exam GENERAL: oriented to person, place, and time. appears well-developed and well- nourished. HENT: Exam performed. - Head: Normocephalic and atraumatic. EYES: Conjunctivae and EOM are normal. Right eye exhibits no discharge. Left eye exhibits no discharge. No scleral icterus. NECK: Normal range of motion. Neck supple. No JVD present. CV: Normal rate, regular rhythm, normal heart sounds and intact distal pulses. There is no peripheral edema. Palpable radial pulses bue. PULM/CHEST: Effort normal and breath sounds normal. No respiratory distress. No stridor. no wheezes. no rales. ABD: The abdomen is soft and obese. There is no tenderness. NEURO: Motor and sensation grossly intact. SKIN: Skin is warm and dry. He is not diaphoretic. PSYCH: normal mood and affect. Behavior is normal. Judgment and thought content normal. Course Course 151: The patient was evaluated in room C3. A complete history and physical exam was performed Cardiac monitoring: An order was placed for continuous cardiac monitoring. The monitor shows a rate of 80 with sinus rhythm interpreted by nv 1650: Vital signs stable. Labs show a creatinine of 2.13 troponin negative. Given the patient's symptoms patient will be admitted for chest pain rule out ACS. Administered Medications Apixaban (Apixaban 2.5 Mg Tab) 2.5 mg PO BID MARBELLA Stop: 06/20/24 20:59 Last Admin: 05/21/24 21:54 Dose: 2.5 mg Documented By: MARIA ANTONIA Aspirin (Aspirin 81 Mg Ectab) 81 mg PO QPM MARBELLA Stop: 06/20/24 20:59 Last Admin: 05/21/24 21:55 Dose: 81 mg Documented By: MARIA ANTONIA Duloxetine HCl (Duloxetine Hcl 60 Mg Cap) 60 mg PO HS MARBELLA Stop: 06/20/24 20:59 Last Admin: 05/21/24 21:54 Dose: 60 mg Documented By: MARIA ANTONIA Lactated Ringer's (Lr) 1,000 mls @ 125 mls/hr IV .Q8H MARBELLA Stop: 05/22/24 17:14 Last Admin: 05/21/24 18:23 Dose: 125 mls/hr Documented By: REMA Losartan Potassium (Losartan Potassium 50 Mg Tab) 100 mg PO QPM MARBELLA Stop: 06/20/24 20:59 Last Admin: 05/21/24 21:55 Dose: 100 mg Documented By: LCD Discontinued Medications Ioversol (Optiray 320 125ml) 88 ml IV ONCE ONE Stop: 05/21/24 18:07 Last Admin: 05/21/24 18:06 Dose: 88 ml Documented By: PLW Medical Decision Making Laboratory Data Attestation: I reviewed the patient's lab results. 05/21/24 15:05 05/21/24 15:05 Lab Results 05/21/24 05/21/24 Range/Units 15:05 15:34 WBC 8.93 (4.8-10.8) K/ul RBC 4.98 (4.70-6.10) M/uL Hgb 16.2 (14.0-18.0) g/dl Hct 47.5 (42.0-52.0) % MCV 95.4 (80.0-100.0) fL MCH 32.5 (25.0-34.0) pg MCHC 34.1 (32.0-36.0) g/dL RDW Std Deviation 50.1 H (36.4-46.3) fL RDW Coeff of Lacey 14.3 (11.5-14.5) % Plt Count 232 (130-400) K/uL MPV 9.1 L (9.4-12.4) fL Immature Gran % (Auto) 0.4 % Neut % (Auto) 83.9 % Lymph % (Auto) 7.2 % [place] % (Auto) 8.1 % Eos % (Auto) 0.2 % Baso % (Auto) 0.2 % Neut # (Auto) 7.49 H (1.40-6.50) K/uL Lymph # (Auto) 0.64 L (1.20-3.40) K/uL [place] # (Auto) 0.72 H (0.11-0.59) K/uL Eos # (Auto) 0.02 (0.00-0.50) K/uL Baso # (Auto) 0.02 (0.00-0.20) K/uL Immature Gran # (Auto) 0.04 (0.01-0.20) K/uL PT 10.9 (9.0-12.0) Seconds INR 1.0 (0.9-1.1) APTT 25 (21-31) Seconds PTT Ratio 0.9 VBG pH 7.34 L (7.36-7.41) VBG pCO2 50 (38-50) mmHg VBG pO2 24 mmHg VBG HCO3 27 mmol/L VBG O2 Saturation < 60.0 % VBG Base Excess 0.5 mEq/L Sodium 133 L (136-145) mmol/L Potassium 4.1 (3.5-5.1) mmol/L Chloride 98 (98-107) mmol/L Carbon Dioxide 28 (21-32) mmol/L Anion Gap 7 (3-11) BUN 24 H (6-23) mg/dl Creatinine 2.13 H (0.6-1.4) mg/dl Est Cr Clr Drug Dosing 44.6 ml/min eGFR 34.13 BUN/Creatinine Ratio 11.3 (10-20) Glucose 91 (70-99(Fasting)) mg/dl Calcium 9.6 (8.6-10.3) mg/dl Magnesium 2.0 (1.7-2.4) mg/dl Total Bilirubin 0.9 (0.2-1.0) mg/dl AST 33 (13-39) U/L ALT 39 (7-52) U/L Alkaline Phosphatase 79 (34-104) U/L Total Creatine Kinase 95 (30-223) U/L Troponin I High Sens 7.0 (0-20) pg/ml B-Natriuretic Peptide 5 (0-100) pg/ml Total Protein 7.6 (6.0-8.3) gm/dl Albumin 4.7 (3.4-5.0) gm/dl Globulin 2.9 (2.5-4.0) gm/dl Albumin/Globulin Ratio 1.6 (0.9-2) Lyme Disease Screen Positive H (Negative) Lyme Tier 2 IgG Confirm Negative (Negative) Lyme Tier 2 IgM Confirm Negative (Negative) Imaging Data Attestation: I personally reviewed and interpreted this imaging study as follows: My Impression: Chest x-ray negative. Airway clear. No pneumothorax. No consolidation. No cardiomegaly or cephalization.. No free air under the diaphragm. No fractures of the skeletal structures. Radiologist's Impression: Chest X-Ray 05/21/24 14:39 Chest x-ray, 2 views History: chest pain Comparison: May 06, 2024 Technique: 2 views of the chest, PA and lateral Findings: The lungs are clear. The cardiomediastinal silhouette is within normal limits. No pleural effusion or pneumothorax. The heart size appears normal. No bony or soft tissue abnormality. Impression: Normal chest x-ray Electronically signed by Ryne Epperson 05-21-2024 4:[address] 05/21/24 15:22 CT head/brain wo con CLINICAL HISTORY: 63 years-old Male with weakness near syncope. Acute weakness with syncope TECHNIQUE: Multiple axial CT images of the head were obtained without contrast. A dose lowering technique was utilized adhering to the principles of ALARA. CT DOSE: 625.8 mGy.cm COMPARISON: Brain MRI 06/13/2020 FINDINGS: No acute intracranial hemorrhage, midline shift, intracranial mass, hydrocephalus, territorial ischemia or abnormal extra-axial collection. Mild involutional changes. The calvarium is intact. The paranasal sinuses, mastoid air cells, and middle ear cavities are clear. IMPRESSION: No acute intracranial abnormality. ACT 112: Negative or not required by law. The above report was generated using voice recognition software. It may contain grammatical, syntax or spelling errors. Electronically signed by: Taj Olivera M.D. 05/21/2024 3:54 PM Chest CTA 05/21/24 17:43 EXAMINATION: CT angio chest PE protocol CLINICAL HISTORY: Lightheaded, short of breath PRIORS: Chest radiograph today TECHNIQUE: Contiguous axial images were obtained through the chest with the use of intravenous contrast. Sagittal and coronal reformations are supplied. FINDINGS: The pulmonary arteries are well opacified and normal in size. No central or peripheral pulmonary embolism. Heart size within normal limits. No mediastinal, hilar, axillary or subpectoral adenopathy. Trachea and mainstem bronchi patent. Thyroid normal in size. Note pleural or pericardial effusion. No dominant pulmonary nodule, mass or airspace consolidation. Aorta is normal caliber. No intimal flap. Mild to moderate calcified atherosclerotic plaque of the aorta and coronary arteries, left anterior descending. Limited visualization of the upper abdomen shows no acute abnormality. Small hiatal hernia noted. Allowing for protocol, no acute osseous abnormality. IMPRESSION: 1. No CT evidence of an acute pulmonary embolism or cardiopulmonary process. 2. Mild to moderate calcified atherosclerotic plaque involving the aorta and coronary arteries. ACT 112: Positive. There are findings on this examination that require communication between the performing entity and the patient following Patient Test Result Information Act ([place] ACT 112) guidelines. Electronically signed by Loreta Pete 05-21-2024 6:51 PM ECG Data Attestation: I personally reviewed and interpreted this ECG as follows: Additional Comments: Sinus rhythm with a rate of 83. MA 192 QRS [address] elevation or ST depression [facility] Narrative 1512: The patient was evaluated in room C3. A complete history and physical exam was performed Cardiac monitoring: An order was placed for continuous cardiac monitoring. The monitor shows a rate of 80 with sinus rhythm interpreted by me 1650: Vital signs stable. Labs show a creatinine of 2.13 troponin negative. Given the patient's symptoms patient will be admitted for chest pain rule out ACS. Impression & Plan Exertional dyspnea, TAHMINA (acute kidney injury), Chest pain Discharge Plan Visit Data Chief Complaint: Shortness of Breath/Dyspnea Stated Complaint: LIGHTHEADED, FATIGUE, SOB ED Provider: Ramo Mcgraw Discharge Problem: Exertional dyspnea, TAHMINA (acute kidney injury), Chest pain Patient Disposition: Admitted As Inpatient Discharge Instructions Interventions: ED Discharge Assessment Last Done: 05/21/24 20:25 Discharge Problem: Chest pain Qualifiers: Chest pain type: unspecified Qualified Code(s): R07.9 - Chest pain, unspecified
[2024-05-22 04:30] VITALS: RESP 18
[2024-05-22 07:57] LABS: Basophils # (auto) 0.01 K/uL (0.00-0.20); Basophils % (auto) 0.3 %; Eosinophils # (auto) 0.08 K/uL (0.00-0.50); Eosinophils % (auto) 2.1 %; Hematocrit (blood only) 42.6 % (42.0-52.0); Hemoglobin 14.1 g/dl (14.0-18.0); Immature Granulocytes # (auto) 0.01 K/uL (0.01-0.20); Immature Granulocytes % (auto) 0.3 %; Lymphocytes # (auto) 0.78 K/uL (1.20-3.40); Lymphocytes % (auto) 20.5 %; Mean Corpuscular Hemoglobin 31.4 pg (25.0-34.0); Mean Corpuscular Hgb Conc 33.1 g/dL (32.0-36.0); Mean Corpuscular Volume 94.9 fL (80.0-100.0); Monocytes # (auto) 0.42 K/uL (0.11-0.59); Neutrophils # (auto) 2.51 K/uL (1.40-6.50); Neutrophils % (auto) 65.8 %; Platelet Count 158 K/uL (130-400); RDW Coefficient of Variation 14.2 % (11.5-14.5); RDW Standard Deviation 50.1 fL (36.4-46.3); Red Blood Count 4.49 M/uL (4.70-6.10); White Blood Count 3.81 K/ul (4.8-10.8)
[2024-05-22 08:25] LABS: Calcium 9.1 mg/dl (8.6-10.3); Potassium 4.1 mmol/L (3.5-5.1)
[2024-05-22 08:30] LABS: BUN Creatinine Ratio 15.9 (10-20); Creatinine Clr Calc Pharmacy 71.9 ml/min
[2024-05-22] MEDS: DULoxetine HCL 30 MG CAP PO SCH (08:30)
[2024-05-22] MEDS: CHOLECALCIFEROL 125 MCG (5,000 UNITS) TAB PO SCH (08:30)
[2024-05-22 08:31] LABS: Troponin I High Sensitivity 6.2 pg/ml (0-20)
--- NOTE | 2024-05-22 14:08 | Hospitalist Progress Note ---
Date of Service May 22, 2024 Assessment & Plan (1) Exertional dyspnea: Plan: f/u on stress test; and echo CTA negative may benefit from right heart cath (2) Pre-syncope: (3) TAHMINA (acute kidney injury): Plan Patient is a 63-year-old male with past medical history of MARCIAL on CPAP, DVT on Eliquis, mood disorder, insomnia, suspected long COVID. Patient presented due to an episode of dyspnea, lightheadedness, chest tightness while he was on his boat in which he had to get off the boat and lay on the concrete. Patient endorses fatigue, and dyspnea on exertion, and orthopnea for several years however acutely worsened for the past few weeks. He is being admitted for exertional dyspnea/presyncope workup and treatment for a newfound TAHMINA. #Exertional dyspnea/fatigue/presyncope - his dyspnea on exertion is intermittent on bad day; cannot walk more than one blocks f/u on stress test aspirin and statin may benefit from right heart cath and eval for pulmonary HTN f/u on lyme, CTA negative for PE #TAHMINA - creatinine downtrend from 2.13--> 1.32 #HLD - LDL of 107 hold statin given his side effect of fatigue baby aspirin abnormal tingling sensation of right leg long standing sensation for many year f/u on b12, iron level #HTN - BP 95/64 on arrival to ED, improved to 141/70 at time of admission - Continue losartan #MARCIAL - CPAP at bedtime ordered, at home, usually able to use it for 6 hours per night #History of DVT - patient reports has been compliant on Eliquis no recurrence of DVT since starting approximately 6 years ago. Denies history of worsening leg swelling, calf cramps, or recent sedentary changes. - Continue Eliquis #Mood disorder/ insomnia/complex regional pain syndrome - medical marijuana at home - continue Cymbalta VTE ppx: SCDs and continue home Eliquis Dispo: med/tele Admission and Anticipated Discharge Date Admission Date: May 21, 2024 Subjective He still have significant shortness of breath and limitation in exercise tolerance He getting stress test today No abdominal pain He was having right leg tingling will check his iron and B12 level Review of Systems Review of Systems: Constitutional: No Weight Change, No Fever, No Chills, No Night Sweats, No Fatigue, No Malaise Cardiovascular: Positive for chest pain and dyspnea on exertion No coughing no wheezing Gastrointestinal: No Nausea, No Vomiting, No Diarrhea, No Constipation, No Pain, No Heartburn, No Anorexia, No Dysphagia, No Hematochezia, No Melena, No Flatulence, No Jaundice Musculoskeletal right leg tingling Skin: No Skin Lesions, No Pruritis, No Hair Changes, No Breast/Skin Changes, No Nipple Discharge Neuro: No Weakness, No Numbness, No Paresthesias, No Loss of Consciousness, No Syncope, No Dizziness, No Headache, No Coordination Changes, No Recent Falls Physical Exam Physical Exam: General: no acute distress HEENT:AT/NC heart: normal s1; s2; RRR; no murmur/rub lung: CTA b/l; no wheezing abdomen: soft to touch MSK; no calf tenderness neuro: AAox3 Results & Data Results & Data Vital Signs (Past 12 Hours) Vital Signs Temp Pulse Pulse Resp BP Pulse Ox O2 Del Method 05/22/24 08:38 36.6 C 61 18 117/77 93 Room Air 05/22/24 07:08 73 05/22/24 04:29 36.7 C 63 18 125/81 94 Room Air Laboratory Results Laboratory Results - last 72 hr 05/21/24 05/21/24 05/21/24 15:05 15:34 18:00 WBC 8.93 RBC 4.98 Hgb 16.2 Hct 47.5 MCV 95.4 MCH 32.5 MCHC 34.1 RDW Std Deviation 50.1 H RDW Coeff of Lacey 14.3 Plt Count 232 MPV 9.1 L Immature Gran % (Auto) 0.4 Neut % (Auto) 83.9 Lymph % (Auto) 7.2 [place] % (Auto) 8.1 Eos % (Auto) 0.2 Baso % (Auto) 0.2 Neut # (Auto) 7.49 H Lymph # (Auto) 0.64 L [place] # (Auto) 0.72 H Eos # (Auto) 0.02 Baso # (Auto) 0.02 Immature Gran # (Auto) 0.04 PT 10.9 INR 1.0 APTT 25 PTT Ratio 0.9 VBG pH 7.34 L VBG pCO2 50 VBG pO2 24 VBG HCO3 27 VBG O2 Saturation < 60.0 VBG Base Excess 0.5 Sodium 133 L Potassium 4.1 Chloride 98 Carbon Dioxide 28 Anion Gap 7 BUN 24 H Creatinine 2.13 H Est Cr Clr Drug Dosing 44.6 eGFR 34.13 BUN/Creatinine Ratio 11.3 Glucose 91 Calcium 9.6 Magnesium 2.0 Total Bilirubin 0.9 AST 33 ALT 39 Alkaline Phosphatase 79 Total Creatine Kinase 95 Troponin I High Sens 7.0 C-Reactive Protein < 0.50 B-Natriuretic Peptide 5 Total Protein 7.6 Albumin 4.7 Globulin 2.9 Albumin/Globulin Ratio 1.6 Cortisol AM Sample Urine Color Urine Appearance Urine pH Ur Specific [place] Urine Protein Urine Glucose (UA) Urine Ketones Urine Blood Urine Nitrite Urine Bilirubin Urine Urobilinogen Ur Leukocyte Esterase Urine WBC (Auto) Urine RBC (Auto) U Hyaline Cast (Auto) U Epithel Cells (Auto) Urine Bacteria (Auto) Hyaline Casts Urine Sperm Ur Random Creatinine Ur Random Sodium U Free [place] Light Ch U Free Lambda Light Ch U Free [place]/Lambda Lyme Disease Screen Positive H Lyme Tier 2 IgG Confirm Negative Lyme Tier 2 IgM Confirm Negative 05/21/24 05/22/24 19:13 07:12 WBC 3.81 L D RBC 4.49 L Hgb 14.1 Hct 42.6 MCV 94.9 MCH 31.4 MCHC 33.1 RDW Std Deviation 50.1 H RDW Coeff of [place] 14.2 Plt Count 158 MPV 9.0 L Immature Gran % (Auto) 0.3 Neut % (Auto) 65.8 Lymph % (Auto) 20.5 [place] % (Auto) 11.0 Eos % (Auto) 2.1 Baso % (Auto) 0.3 Neut # (Auto) 2.51 Lymph # (Auto) 0.78 L [place] # (Auto) 0.42 Eos # (Auto) 0.08 Baso # (Auto) 0.01 Immature Gran # (Auto) 0.01 PT INR APTT PTT Ratio VBG pH VBG pCO2 VBG pO2 VBG HCO3 VBG O2 Saturation VBG Base Excess Sodium 138 Potassium 4.1 Chloride 103 Carbon Dioxide 31 Anion Gap 4 BUN 21 Creatinine 1.32 D Est Cr Clr Drug Dosing 71.9 eGFR 60.61 BUN/Creatinine Ratio 15.9 Glucose 102 H Calcium 9.1 Magnesium Total Bilirubin AST ALT Alkaline Phosphatase Total Creatine Kinase Troponin I High Sens 6.2 C-Reactive Protein B-Natriuretic Peptide Total Protein Albumin Globulin Albumin/Globulin Ratio Cortisol AM Sample 8.44 Urine Color Yellow Urine Appearance Clear Urine pH 5.0 Ur Specific [place] 1.021 Urine Protein Trace H Urine Glucose (UA) Negative Urine Ketones Negative Urine Blood Negative Urine Nitrite Negative Urine Bilirubin Negative Urine Urobilinogen Negative Ur Leukocyte Esterase Negative Urine WBC (Auto) 0-5 Urine RBC (Auto) 0-2 U Hyaline Cast (Auto) 6-10 H U Epithel Cells (Auto) 3-5 H Urine Bacteria (Auto) None Seen Hyaline Casts Present A Urine Sperm Present A Ur Random Creatinine 104.7 Ur Random Sodium 21 U Free [place] Light Ch Cancelled U Free Lambda Light Ch Cancelled U Free [place]/Lambda Cancelled Lyme Disease Screen Lyme Tier 2 IgG Confirm Lyme Tier 2 IgM Confirm Diagnostic Findings Chest X-Ray 05/21/24 14:39 Chest x-ray, 2 views History: chest pain Comparison: May 06, 2024 Technique: 2 views of the chest, PA and lateral Findings: The lungs are clear. The cardiomediastinal silhouette is within normal limits. No pleural effusion or pneumothorax. The heart size appears normal. No bony or soft tissue abnormality. Impression: Normal chest x-ray Electronically signed by Ryne Epperson 05-21-2024 4:[address] 05/21/24 15:22 CT head/brain wo con CLINICAL HISTORY: 63 years-old Male with weakness near syncope. Acute weakness with syncope TECHNIQUE: Multiple axial CT images of the head were obtained without contrast. A dose lowering technique was utilized adhering to the principles of ALARA. CT DOSE: 625.8 mGy.cm COMPARISON: Brain MRI 06/13/2020 FINDINGS: No acute intracranial hemorrhage, midline shift, intracranial mass, hydrocephalus, territorial ischemia or abnormal extra-axial collection. Mild involutional changes. The calvarium is intact. The paranasal sinuses, mastoid air cells, and middle ear cavities are clear. IMPRESSION: No acute intracranial abnormality. ACT 112: Negative or not required by law. The above report was generated using voice recognition software. It may contain grammatical, syntax or spelling errors. Electronically signed by: Taj Olivera M.D. 05/21/2024 3:54 PM Chest CTA 05/21/24 17:43 EXAMINATION: CT angio chest PE protocol CLINICAL HISTORY: Lightheaded, short of breath PRIORS: Chest radiograph today TECHNIQUE: Contiguous axial images were obtained through the chest with the use of intravenous contrast. Sagittal and coronal reformations are supplied. FINDINGS: The pulmonary arteries are well opacified and normal in size. No central or peripheral pulmonary embolism. Heart size within normal limits. No mediastinal, hilar, axillary or subpectoral adenopathy. Trachea and mainstem bronchi patent. Thyroid normal in size. Note pleural or pericardial effusion. No dominant pulmonary nodule, mass or airspace consolidation. Aorta is normal caliber. No intimal flap. Mild to moderate calcified atherosclerotic plaque of the aorta and coronary arteries, left anterior descending. Limited visualization of the upper abdomen shows no acute abnormality. Small hiatal hernia noted. Allowing for protocol, no acute osseous abnormality. IMPRESSION: 1. No CT evidence of an acute pulmonary embolism or cardiopulmonary process. 2. Mild to moderate calcified atherosclerotic plaque involving the aorta and coronary arteries. ACT 112: Positive. There are findings on this examination that require communication between the performing entity and the patient following Patient Test Result Information Act ([place] ACT 112) guidelines. Electronically signed by Loreta Pete 05-21-2024 6:51 PM Medications Administered Current Inpatient Medications Acetaminophen (Acetaminophen 325 Mg Tab) 650 mg PO Q4H PRN PRN Reason: Pain or Fever Stop: 06/20/24 20:30 Apixaban (Apixaban 2.5 Mg Tab) 2.5 mg PO BID MARBELLA Stop: 06/20/24 20:59 Last Admin: 05/22/24 08:26 Dose: Not Given Aspirin (Aspirin 81 Mg Ectab) 81 mg PO QPM MARBELLA Stop: 06/20/24 20:59 Last Admin: 05/21/24 21:55 Dose: 81 mg Docusate Sodium (Docusate Sodium 100 Mg Cap) 100 mg PO BID PRN PRN Reason: Constipation Stop: 06/20/24 20:30 Duloxetine HCl (Duloxetine Hcl 30 Mg Cap) 30 mg PO QAM MARBELLA Stop: 06/21/24 08:59 Last Admin: 05/22/24 08:30 Dose: 30 mg Duloxetine HCl (Duloxetine Hcl 60 Mg Cap) 60 mg PO HS MARBELLA Stop: 06/20/24 20:59 Last Admin: 05/21/24 21:54 Dose: 60 mg Lactated Ringer's (Lr) 1,000 mls @ 125 mls/hr IV .Q8H MARBELLA Stop: 05/22/24 17:14 Last Infusion: 05/22/24 12:56 Dose: 125 mls/hr Losartan Potassium (Losartan Potassium 50 Mg Tab) 100 mg PO QPM MARBELLA Stop: 06/20/24 20:59 Last Admin: 05/21/24 21:55 Dose: 100 mg Melatonin (Melatonin 3 Mg Tab) 3 mg PO HS PRN PRN Reason: Sleep Stop: 06/20/24 20:30 Ondansetron HCl (Ondansetron Inj 2 Mg/Ml 2 Ml Vial) 4 mg IV Q6H PRN PRN Reason: Nausea And Vomiting Stop: 06/20/24 20:30 Vitamin D (Cholecalciferol 125 Mcg (5,000 Units) Tab) 125 mcg PO QAM MARBELLA Stop: 06/21/24 08:59 Last Admin: 05/22/24 08:30 Dose: 125 mcg PG Care Time/CCT Total # of Minutes Spent Total Time Spent with Patient: Total time 35 spent is greater than 50% in coordination of care (as documented) at patient's floor/unit and/or counseling patient: Coding Level of Care Code 36754 SUB INP/OBS CARE 2/35MIN Diagnoses Exertional dyspnea R06.09 Pre-syncope R55 TAHMINA (acute kidney injury) N17.9 Time Spent (min) 35
[2024-05-22] MEDS: DOBUTamine HCL 12.5 MG/ML 20 ML VIAL IV ONE (15:36)
[2024-05-22] MEDS: ATROPINE SULFATE 0.1 MG/ML 10ML SYR IV ONE (15:36)
[2024-05-22] MEDS: METOPROLOL TARTRATE 1 MG/ML VIAL IV ONE (15:36)
--- NOTE | 2024-05-22 17:18 | Electrocardiogram Report ---
Test Reason : Blood Pressure : */* mmHG Vent. Rate : 72 BPM Atrial Rate : 72 BPM P-R Int : 252 ms QRS Dur : 92 ms QT Int : 418 ms P-R-T Axes : 68 72 62 degrees QTcB Int : 457 ms Sinus rhythm with 1st degree A-V block Abnormal ECG When compared with ECG of 22-May-2024 12:27, (unconfirmed) Right bundle branch block is no longer Present Confirmed by Ryne Adams ([id number]) on 05/22/2024 5:17:46 PM Referred By: Ryne Spear Confirmed By: Ryne Adams
--- NOTE | 2024-05-22 17:18 | Electrocardiogram Report ---
Test Reason : Blood Pressure : */* mmHG Vent. Rate : 78 BPM Atrial Rate : 78 BPM P-R Int : 248 ms QRS Dur : 148 ms QT Int : 428 ms P-R-T Axes : 64 96 66 degrees QTcB Int : 487 ms Sinus rhythm with 1st degree A-V block Right bundle branch block Abnormal ECG When compared with ECG of 21-May-2024 14:59, Fusion complexes are no longer Present NV interval has increased Right bundle branch block is now Present Confirmed by Ryne Adams ([id number]) on 05/22/2024 5:17:58 PM Referred By: Ryne Spear Confirmed By: Ryne Adams
--- NOTE | 2024-05-22 17:26 | XCELERA ---
[id number]
[2024-05-23 11:57] VITALS: BP 135/73; TEMP 97.7; O2SAT 97
[2024-05-23 13:10] LABS: BUN Creatinine Ratio 15.9 (10-20); Calcium 9.3 mg/dl (8.6-10.3); Creatinine Clr Calc Pharmacy 88.3 ml/min
[2024-05-23] MEDS: LACTATED RINGER'S 500 ML IV ONE (13:50)
--- NOTE | 2024-05-23 14:35 | Discharge Summary ---
Discharge Summary Date of Service May 23, 2024 Principal Dx & Hospital Course #1 = Principal Diagnosis (1) Exertional dyspnea: f/u on stress test; and echo CTA negative may benefit from right heart cath (2) Pre-syncope: f/u with cardiology for event monitor avoid dehydratoin (3) TAHMINA (acute kidney injury): improved; repeat BMP in 5- 7 days Plan Patient is a 63-year-old male with past medical history of MARCIAL on CPAP, DVT on Eliquis, mood disorder, insomnia, suspected long COVID. Patient presented due to an episode of dyspnea, lightheadedness, chest tightness while he was on his boat in which he had to get off the boat and lay on the concrete. Patient endorses fatigue, and dyspnea on exertion, and orthopnea for several years however acutely worsened for the past few weeks. He is being admitted for exertional dyspnea/presyncope workup and treatment for a newfound TAHMINA. #Exertional dyspnea/fatigue/presyncope - his dyspnea on exertion is intermittent on bad day; cannot walk more than one blocks stress test negative f/u with cardiology event monitoring #TAHMINA - resolved. #HLD - LDL of 107 hold statin given his side effect of fatigue baby aspirin abnormal tingling sensation of right leg long standing sensation for many year f/u on b12, iron level b12 deficiency; provided with daily b12 of 2000 mcg oral recheck B12 level i n2-3 months may benefit from intramuscular #HTN - BP 95/64 on arrival to ED, improved to 141/70 at time of admission - Continue losartan #MARCIAL - CPAP at bedtime ordered, at home, usually able to use it for 6 hours per night #History of DVT - patient reports has been compliant on Eliquis no recurrence of DVT since starting approximately 6 years ago. Denies history of worsening leg swelling, calf cramps, or recent sedentary changes. - Continue Eliquis #Mood disorder/ insomnia/complex regional pain syndrome - medical marijuana at home - continue Cymbalta VTE ppx: SCDs and continue home Eliquis Dispo: med/tele Admission HPI Per Admitting Provider Patient is a 63-year-old male with past medical history of MARCIAL on CPAP, DVT on Eliquis, mood disorder, insomnia, suspected long COVID. Patient presented due to an episode of dyspnea, lightheadedness, chest tightness while he was on his boat in which he had to get off the boat and lay on the concrete. Patient endorses fatigue, and dyspnea on exertion, and orthopnea for several years however acutely worsened for the past few weeks. He is being admitted for chest pain workup as he was to have a stress echocardiogram next week and treatment for a newfound TAHMINA. Patient seen at bedside with his present. He stated he was on his boat this afternoon when he developed shortness of breath and lightheadedness. He started to realign his fishing line and really struggled to do so without any fish on it. Last summer he was able to realign fish over 20 pounds without difficulty. The episode then progressed and he had severe dyspnea and lightheadedness along with chest tightness on the front and back of his chest. He leaned on the concrete to try to help with this because he felt like he was in a pass out. Patient stated that today while on the boat he was very cold and shivering and had some muscle cramps. He stated that he has had fatigue since 2020 and his urban sociologist is working him up for long COVID, however his fatigue and dyspnea on exertion have been worse over the past few weeks. He also endorses dyspnea in the shower and when laying down. 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 Regarding his history of DVT, he stated he did fail Coumadin however has been compliant with his Eliquis and has not had a DVT since being started on it approximately 6 years ago. He has chronic bilateral lower extremity swelling and cyanosis that is unchanged. He denies any calf pain. He denies any recent long trips or sedentary lifestyle changes. He denies any flulike symptoms, nausea, vomiting, diarrhea. He is very well-hydrated. He denies any urinary symptoms however does state his urine is orange in color. He denies any nicotine use. He stated he has approximately one half of a bottle of vodka over the course of 2 weeks, he typically drinks on the weekends however not daily. He does use medical marijuana and uses approximately 3 times per week. Regarding his past medical history, he has never had a history of ME however did have an abnormal EKG several years ago but had a stress echocardiogram that was normal. He does have a significant family history of cardiac problems including his siblings have heart stents and his father had a triple bypass surgery. His mother did have a history of stroke. Patient denies any past history of DM. He took his home medications this morning but will be due for evening medications. He wishes to be full code. Patient recently saw his urban sociologist who found him to have vitamin D deficiency and started him on vitamin D and is currently holding his rosuvastatin thought to be contributing to his fatigue. Otherwise he has had no recent medication changes. His urban sociologist ordered for him to have a stress echocardiogram next week, will order at this time. Hospital course He have history of sleep apnea, DVT on Eliquis, mood disorder, long COVID He came to our hospital on day of admission with shortness of breath dizziness chest tightness Found to be in TAHMINA with creatinine from baseline of 1.1-1.8 Status post IV fluid, he is status post dobutamine echo and negative for ischemia He been having shortness of breath limited his exercise tolerance since he received the vaccine 3 to 4 years ago He also been having tingling sensation in the lower extremity we also found that his B12 is less than 200, he was provided with almost B12 2000 mg/day He is chest pain resolved shortness of breath resolved seen by physical therapy and cleared for discharge He was discharged on May 23, 2024. His was updated in person Discharge Exam VITALS: Reviewed. WEIGHT/BMI reviewed. GEN: Healthy appearing, well-developed, NAD. -Head: NC/AT; -Eyes: PERRL, EOMI. No discharge or redness; -Mouth and throat: MMM. Normal gums, mucosa, palate,. Good dentition. NECK: large neck diameter CV: RRR, no m/r/g. LUNGS: CTAB, no w/r/c. ABD: Soft, NT/ND, NBS, no masses or organomegaly. non-tender to palpatio n SKIN: Warm, well perfused. No skin rashes or abnormal lesions. MSK: No deformities, Normal gait. EXT: No clubbing, cyanosis, or edema. NEURO: AAOx3 Discharge Plan Discharge Items Patient Disposition: Home - Self-Care Reason For Visit: EXERTIONAL DYSPNEA, TAHMINA, FATIGUE, CHEST PAIN ABBY Discharge Diagnosis: chest pain, acute kidney injury Activity: Per Instructions section Lifting: Gradually increase as tolerated Bathing: No limitations and May shower/bathe in 3 days Non-emergency contact: Primary Care Provider Call non-emergency contact if: your pain is not controlled and your temperature is above 101 Follow-up/Referrals: Ryne Spear MD [Primary Care Provider] - Diet: Regular Addtl Attending Provider Instructions: you have low B12 level, and may benefit from monthly IM shot in addition, follow up with your PCP to evaluate the lyme antibody you should follow up with cardiology for event monitor Pending Studies at Discharge: No Stand-Alone Forms: My [employer], Smoking Cessation Medications and DC Order Prescriptions: New cyanocobalamin (vitamin B-12) 2,000 mcg tablet extended release 2,000 mcg PO DAILY Qty: 30 0RF Continued medical marijuana card 1 dose PO DAILY PRN (Reason: Pain (Scale Score 7-10)) losartan 100 mg tablet 100 mg PO QPM Qty: 90 3RF ergocalciferol (vitamin D2) 1,250 mcg (50,000 unit) capsule 50,000 unit PO WEEKLY Qty: 8 0RF Rx Instructions: rosuvastatin [Crestor] 10 mg tablet 10 mg PO HS Qty: 90 3RF Rx Instructions: Currently on hold - (DME) Auto Titrating CPAP Misc .Route Qty: 1 0RF Rx Instructions: 5 to 15 cm of water, nasal cushion, heated humidification, compliance download capabilities, DME: [facility] patient acetaminophen [Tylenol Extra Strength] 500 mg tablet 1,000 mg PO Q8H PRN (Reason: pain) Eliquis 2.5 mg tablet 2.5 mg PO BID Qty: 180 3RF aspirin 81 mg tablet,delayed release (DR/EC) 81 mg PO QPM duloxetine 30 mg capsule,delayed release(DR/EC) 30 mg PO QAM duloxetine [Cymbalta] 60 mg capsule,delayed release(DR/EC) 60 mg PO HS Discharge Orders: Discharge Order (Routine); Ordered 05/23/24 Ordered By: Denis Sanders/Other Patient Handouts: Syncope Tx Heart, Acute Kidney Failure Dc Admission Data Admit Date/Time: 05/21/24 17:54 Attending Provider: Denis Bolden Admit Provider: Aidan Alamo Primary Care Provider: Ryne Spear Other Providers: Aidan Alamo Hospital Stay Data Consultations 05/21/24 16:51 ED Decision to Admit Stat Diagnostic Imagining Performed 05/21/24 15:22 CT head/brain wo con Stat 05/21/24 17:43 CT angio chest PE protocol Urgent Pending Results Patient Have Any Pending Studies at Discharge: No Discharge Instructions Given to Patient (Per Discharging Provider) you have low B12 level, and may benefit from monthly IM shot in addition, follow up with your PCP to evaluate the lyme antibody you should follow up with cardiology for event monitor Total Time Total Time Spent Total Time Spent (In Minutes): 35 minutes Coding Level of Care Code 37762 INP/OBS DISCH >30 MIN Diagnoses Exertional dyspnea R06.09 Pre-syncope R55 TAHMINA (acute kidney injury) N17.9 Time Spent (min) 35
[2024-05-23 15:57] LABS: Free Kappa 26.9 mg/L (3.3-19.4); Free Kappa/Lambda Ratio 1.02 (0.26-1.65); Free Lambda 26.3 mg/L (5.7-26.3)
[2024-05-23 17:02] VITALS: PULSE 77
[2024-05-26 14:43] LABS: Kappa Light Chain, Free, Urine 15.1 mg/L (<=32.90); Kappa/Lambda, Free Ratio, Ur 4.9 (<=8.69); Lambda Light Chain, Free, Ur 3.08 mg/L (<=3.79)
== END 2024-05-23 17:58 | disposition home or self-care (01) | DRG 684 ==
LOC: ED 14:10 → EDINP 17:54 → SUATTDRO 17:54 → EDINP 20:25 → 2W 05-22 01:10